=== PATIENT | female | born 1970 | race Caucasian/White ===

== ENCOUNTER 2023-08-13 20:40 | Emergency (ER) | payer BC, SELFPAY ==
--- NOTE | ~2023-08-13 | XR_ITS ---
XR chest 1V portable Ordering provider: Ani Lacy History: 52 years Female with . SOB . Comparison: None. FINDINGS: MEDIASTINUM: The cardiac silhouette is not enlarged. LUNGS: No infiltrates, effusions or pneumothorax. Prominent markings in the lower lobes with possible pneumonia in the left lung base. OTHER: Sliding hiatus hernia. No free air under the diaphragm. Degenerative the spine. IMPRESSION: Highly suggestive left basal pneumonia. Sliding hiatus hernia. Reviewed, dictated and finalized at location A.
[2023-08-13 20:46] VITALS: BP 155/107; PULSE 92; RESP 26; O2SAT 94
--- NOTE | 2023-08-13 20:46 | ECG_ITS ---
Test Date: 2023-08-13 20:51:55 Measurements Intervals [place] Rate: 91 P: 34 OK: 140 QRS: 1 QRSD: 89 T: 26 QT: 365 QTc: 450 Interpretive Statements SINUS RHYTHM WITH SINUS ARRHYTHMIA WITHIN NORMAL LIMITS No previous ECG available for comparison Electronically Signed On 08-14-2023 07:09:20 CDT by Marcial Saunders M.D.
--- NOTE | 2023-08-13 21:02 | ED.GENADULT ---
HPI - General Adult General Chief complaint: Shortness of Breath/Dyspnea Stated complaint: sob Time Seen by Provider: 08/13/23 20:59 History of Present Illness HPI narrative: Patient is a 52-year-old female who presents to the emergency department this evening complaining of an asthma exacerbation. Patient states that shortly prior to arrival to the emergency department approximately 20 minutes prior she started to have some worsening shortness of breath and wheezing. Patient tried to take her home inhalers without any relief. Patient states that with this happens usually she comes to the emergency department for DuoNeb and Decadron which significantly improved her symptoms. She is currently denying any chest pain, any fevers or chills at home and denies any additional symptoms or concerns at this time. Related Data Allergies Allergy/AdvReac Type Severity Reaction Status Date / Time Sulfa (Sulfonamide Allergy Other Verified 08/13/23 21:10 Antibiotics) Review of Systems Review of Systems: All systems are reviewed and are negative unless stated otherwise in the HPI. Exam Narrative: General: Alert, awake, afebrile, in mild respiratory distress. HEENT: PERRL, no rhinorrhea, no post nasal drip, oropharynx clear. Cardiovascular: Regular rate and rhythm, no murmurs, rubs or gallops, no peripheral edema. Respiratory: Diffuse audible wheezing, tachypnea, mild respiratory distress. Abdomen: Soft, nontender, nondistended, no rebound, no guarding, no peritoneal signs. Musculoskeletal: No joint swelling or deformity, normal muscle tone. Skin: No rashes or petechia, no signs of infection. Neurological: Alert and oriented to person, place, and time. Follows all commands. No focal deficits, speech is clear and fluent. Course Vital Signs Vital signs: Vital Signs Pulse Rate 92 08/13/23 20:46 Respiratory Rate 26 H 08/13/23 20:46 Blood Pressure 155/107 H 08/13/23 20:46 Pulse Oximetry 94 08/13/23 20:46 Oxygen Delivery Room Air 08/13/23 20:46 Pulse Rate 86 08/13/23 21:14 Respiratory Rate 22 H 08/13/23 21:14 Blood Pressure 155/107 H 08/13/23 20:46 Pulse Oximetry 94 08/13/23 21:35 Oxygen Delivery Room Air 08/13/23 21:[address] [facility] Narrative Medical decision making narrative: The patient was evaluated by myself in the emergency department. History is obtained from patient who is an independent historian and physical exam was performed. External medical records were reviewed at this time. IV was established and pertinent tests were ordered. Patient was administered continuous hour long DuoNeb breathing treatment and 10 mg of IV Decadron. EKG was obtained which revealed sinus rhythm at a rate of 91 beats per minute with baseline artifact secondary to breathing, no ischemic changes within the limitation of the artifact. EKG was independently interpreted by me and is currently pending official cardiology read. Laboratory results obtained revealing no acute process. Imaging studies obtained included CXR which was independently interpreted by me revealing left basal pneumonia, which is pending final radiology interpretation. Differential diagnosis considerations include infectious process such as pneumonia, asthma exacerbation, acute viral syndrome. Comorbidities impacting this visit include history of asthma. I have evaluated and discussed social determinants of health with the patient that could potentially impact subsequent diagnosis and treatment plans. On repeat assessment of the patient, reevaluation revealed that the patient is doing well and is in no acute distress. Patient symptoms have improved since she arrived to our emergency department. Repeat vital signs were all reviewed and noted to be stable. Differential diagnosis and treatment plan were discussed with the patient at bedside. Patient agrees with discussion and after shared medical decision making agree
[2023-08-13 21:05] LABS: Basophils Absolute Auto 0.1 K/mm3 (0.0-0.1); Basophils Percent Auto 0.6 % (0.2-1.2); Eosinophils Absolute Auto 0.2 K/mm3 (0-0.3); Hemoglobin 13.3 g/dL (12.0-15.0); Immature Granulocyte Absolute 0.02 K/mm3 (0.00-0.031); Immature Granulocyte Percent A 0.2 % (0-0.5); Immature Platelet Fraction Pct 8.4 % (0.9-11.2); Lymphocytes Absolute Auto 3.06 K/mm3 (0.9-3.2); Lymphocytes Percent Auto 35.3 % (18.3-44.2); Mean Corpuscular HGB Conc 32.4 g/dl (32-36); Mean Corpuscular Volume 83.3 fl (80-100); Mean Platelet Volume 11.9 fl (7.4-10.4); Monocytes Absolute Auto 0.6 K/mm3 (0.1-0.6); Monocytes Percent Auto 6.9 % (2.6-8.5); Neutrophils Absolute Auto 4.8 K/mm3 (1.3-6.7); Platelet Count Result 196 k/mm3 (150-375); Red Blood Count 4.92 M/mm3 (4.2-5.4); Red Cell Distribution Width 13.2 % (11.5-14.5); White Blood Count 8.7 K/mm3 (4.5-10.0)
[2023-08-13] MEDS: dexAMETHasone SOD PHOS INJ 10 MG/ML 1 ML VIAL IV PUSH (21:11)
[2023-08-13] MEDS: ALBUTEROL SULFATE NEB 2.5 MG/3 ML INH 10 MG INHALATION (21:11)
[2023-08-13 21:12] LABS: Platelet Estimate Adequate (Adequate); Schistocytes None Seen
[2023-08-13] MEDS: IPRATROPIUM BR 0.02% INH SOLN 0.5 MG/2.5 ML VIAL 2 MG INHALATION (21:13)
[2023-08-13 21:14] VITALS: PULSE 86; RESP 22
[2023-08-13 21:29] LABS: Alanine Aminotransferase 23 U/L (6-35); Albumin Level 4.1 g/dL (3.5-5.1); Alkaline Phosphatase 104 U/L (38-126); Anion Gap 7 mmol/L (4-12); Aspartate Amino Transferase 30 U/L (14-36); Bilirubin,Total 0.3 mg/dL (0.2-1.3); Blood Urea Nitrogen 16 mg/dL (7-17); Calcium 8.9 mg/dL (8.4-10.2); Carbon Dioxide 25 mmol/L (22-30); Chloride 109 mmol/L (98-107); Estimated CRCL calculation 108 ml/min; Estimated Glomerular Filt Rate > 60; Glucose 122 mg/dL (65-110); Potassium 3.6 mmol/L (3.4-5.0); Sodium 141 mmol/L (137-145)
[2023-08-13] MEDS: ACETAMINOPHEN 325 MG TABLET 650 MG PO (21:33)
[2023-08-13 21:35] VITALS: O2SAT 94
[2023-08-13 21:35] LABS: Influenza A QL RT-PCR Negative (Negative); Influenza B QL RT-PCR Negative (Negative); RSV RNA, RT-PCR Negative (Negative); SARS-CoV-2 RNA PCR Negative (Negative)
[2023-08-13 22:52] VITALS: BP 137/65; PULSE 87; RESP 18; O2SAT 100
== END 2023-08-13 22:55 | disposition home or self-care (01) ==
LOC: ANHED 22:04
PROVIDERS: Emergency Provider Emergency Medicine
DX: J45.901 Unspecified asthma with (acute) exacerbation (principal); J18.9 Pneumonia, unspecified organism; Z20.822 Contact with and (suspected) exposure to COVID-19
CPT/HCPCS: 36415; 71045; 80053; 85025; 85055; 87637; 93005; 94640; 96374; 99284; A9270; J1100

== ENCOUNTER 2023-10-03 08:31 | Outpatient (CLI) | payer BC, SELFPAY ==
--- NOTE | ~2023-10-03 | US_ITS ---
EXAMINATION: US pelvic complete w TV DATE: 10/03/2023 09:03 INDICATION: Postmenopausal bleeding. TECHNIQUE: Multiple transabdominal and transvaginal sonographic images of the pelvis were obtained. COMPARISON: None. FINDINGS: TRANSABDOMINAL ULTRASOUND: The uterus measures 8.9 x 3.5 x 6.6 cm. There is no free fluid in the pelvis. TRANSVAGINAL ULTRASOUND: The endometrial complex measures 6 mm in thickness. There is a 2.8 cm subserosal fibroid. The right o vary measures 2.4 x 1.8 x 2.5 cm. The left ovary is not visualized. IMPRESSION: 1. Mildly thickened endometrial complex. The differential diagnosis includes endometrial hyperplasia, polyp, and carcinoma. Biopsy is recommended. 2. Uterine fibroid. Reviewed, dictated and finalized at location A. IMPRESSION: 1. Mildly thickened endometrial complex. The differential diagnosis includes en dometrial hyperplasia, polyp, and carcinoma. Biopsy is recommended. 2. Uterine fibroid.
== END 2023-10-03 08:32 ==
PROVIDERS: PCP Family Medicine; Visit Provider Obstetrics & Gynecology
DX: D25.2 Subserosal leiomyoma of uterus (principal); R93.89 Abnormal findings on diagnostic imaging of other specified body structures
CPT/HCPCS: 76830; 76856

== ENCOUNTER 2023-10-15 01:51 | Day surgery (SDC) | payer BC, SELFPAY ==
[2023-10-09 13:01] VITALS: BMI 40.8
--- NOTE | 2023-10-09 13:18 | SUR.PREOP ---
Report to the Outpatient Waiting Room, entrance under the green pavilion located off [facility], at time 0600 on date 10/15/2023. Planned Procedure Time: 0730. Time changes happen often and if your time is changed the preop area will call you the afternoon before. - You and your visitor will be asked to self-screen and do not enter if you have any COVID symptoms. - A mask is optional within the hospital at this time. Patients may have clear liquids (water, carbonated beverages, clear teas, apple juice) until 3 hours prior to surgery with a maximum of 20 ounces. - No food from midnight until time of surgery - Infants may have breast milk until 4 hours before surgery, infant formula 6 hours prior to surgery. - Children will be allowed to drink immediately following surgery. If applicable, please bring a bottle or sippy cup to assist with drinking. Juice, water, soda, and popsicles are readily available. For infants on formula, please bring formula the day of surgery. Pacifiers are allowed. Take the following medications with a SIP of water the morning of surgery: Nebivolol DO NOT STOP ANY OF YOUR OTHER PRESCRIPTION MEDICATIONS PRIOR TO SURGERY ?EXCEPT THE FOLLOWING Medications to discontinue per physician: Vitamins and supplements- 3 days Date to take last dose: 10/12/23 Please no make-up, nail divehi, hairspray, perfume, deodorant, or body powder the day of surgery. No jewelry (including any body piercings) or valuables the day of surgery, leave them at home. Please take a shower or bath the night before, or the morning of, surgery with an antibacterial soap. Wear comfortable, loose fitting clothing. Children are encouraged to wear pajamas. - Jewelry must be removed prior to entering the operating room. Rings and piercings that are not removed may be cut off. - The hospital will not accept responsibility for valuables. - Please leave all valuables, including medications, at home the day of surgery. If you are going home after surgery, a licensed tow bar driver must drive you home. - NO public transportation without another adult if you receive anesthesia. - We recommend that an adult stay with you for 24 hours following discharge. - We also recommend that you do not drive, make important decision, drink alcoholic beverages, or take any drugs that were not prescribed by your health care provider for at least 24 hours after your discharge time. For Pediatric surgeries, we recommend two adults accompany the child home. Follow any additional instructions given to you from your surgeon. If you or anyone in your household have experienced Covid symptoms in the past week, please notify your surgeon or the nurse liaison at the phone number below for possible testing. Telephone instructions given to ____patient and asked if any additional questions and then verbalized understanding. Patient advised to call surgeon office or pre surgery nurse liaison [phone] if any additional questions.
--- NOTE | 2023-10-14 10:53 | PM.IMHP ---
H&P: HPI History of Present Illness Date/Time: 10/14/23 10:53 52-year-old female presents for evaluation of postmenopausal bleeding. She had not had any bleeding for over 3 years, and blood work is consistent with menopause, and has been bleeding on and off for the last month. Ultrasound showed a slightly thickened endometrial cavity with small fibroid. Presents today for evaluation of endometrial cavity as well as tissue sampling. Chief Complaint: Postmenopausal bleeding Review of Systems Review of Systems: All systems reviewed & are unremarkable except as noted in HPI and below PMFSH Past Medical History Medical History Arthritis Asthma Autoimmune disease Larsen esophagus Bronchitis Hernia Hyperlipidemia Hypothyroidism IBS (irritable bowel syndrome) Migraines MVP (mitral valve prolapse) Surgical History Surgical History History of bunionectomy left foot History of hysteroscopy (~11/2014) hysteroscopy- menometrorrhagia History of orthopedic surgery (~1999) right shoulder labrum and bicep repair Hx of cholecystectomy (10/29/20) Family History Family History Father Acute myocardial infarction COPD (chronic obstructive pulmonary disease) Mother Leukemia Thyroid disease Sibling MVP (mitral valve prolapse) sister Asthma sister Thyroid disease sister Grandparent Breast cancer maternal grandmother Other Thyroid disease maternal aunt Social History Social History Smoking status: Never smoker Second hand tobacco smoke exposure: No Alcohol intake: never Substance use: never Substance use type: does not use Do You Feel Safe in your Home?: Yes Lack of Transportation: No Lack of Food: Never True Current Housing: I Have Housing Concerned About Future Housing: No Difficulty Paying Gas/Electric Bills: No Difficulty Paying for Meds: No Currently Unemployed: No Education: High School Diploma/GED Difficulty w/ Childcare or Family Care: No Living arrangements: with family Additional living arrangements comments: Occupation/Education: occupation 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 Gender identity (if verbalized by the patient): Female Sexual Orientation (if Verbalized by the Patient): Straight or Heterosexual Spiritual care concerns: No Meds Home Medications and Allergies Home Medications Medication Instructions Recorded Confirmed Type Lactobacillus acidophilus 20 100 mmu cells PO DAILY 09/22/23 10/09/23 History billion cell capsule (Florajen Acidophilus) albuterol sulfate 90 mcg/actuation 1 inh inhalation Q4H 09/22/23 10/09/23 History aerosol inhaler levocetirizine 5 mg tablet (Xyzal) 5 mg PO DAILY 09/22/23 10/09/23 History montelukast 10 mg tablet 10 mg PO DAILY 09/22/23 10/09/23 History (Singulair) nebivolol 5 mg tablet (Bystolic) 5 mg PO DAILY 09/22/23 10/09/23 History pantoprazole 40 mg tablet,delayed 40 mg PO QAM 09/22/23 10/09/23 History release pseudoephedrine HCl 120 mg 120 mg PO Q12H 09/22/23 10/09/23 History tablet,extended release (Sudafed 12 Hour) rizatriptan 10 mg tablet (Maxalt) See Rx Instructions PO .COMPLEX 09/22/23 10/09/23 History rosuvastatin 10 mg tablet 10 mg PO DAILY 09/22/23 10/09/23 History simethicone 125 mg capsule (Gas-X 125 mg PO BID PRN gas 09/22/23 10/09/23 History Extra Strength) Allergies Allergy/AdvReac Type Severity Reaction Status Date / Time Sulfa (Sulfonamide Allergy Unknown Other Verified 10/09/23 12:57 Antibiotics) adhesive tape AdvReac Mild Blister Verified 10/09/23 12:57 Exam Const: General: cooperative and healthy appearing Resp: Effort & Inspection: normal respiratory effort A
[2023-10-15] VITALS (7 sets, daily range): BP systolic 109–121; BP diastolic 67–81; PULSE 56–75; RESP 16–20; TEMP 36.1; O2SAT 94–98; BMI 41.4
[2023-10-15] MEDS: LACTATED RINGERS 1,000 ML 30 ML IV CONT (07:00)
[2023-10-15] MEDS: ACETAMINOPHEN 500 MG TABLET 1000 MG PO (07:11)
--- NOTE | 2023-10-15 09:31 | WPDANESEPPF ---
Anes - Initial Pre Proc Eval Procedure: Operation Date: 10/15/23 08:30 Proposed Procedures p Hysteroscopy Dilation and Curettage - Pedro Pablo Prasad MD Date/Time: 10/15/23 09:31 Surgeon: Pedro Pablo Prasad MD Pre Op Diagnosis: abnormal uterine bleeding Patient Data Age: 52 Gender: F Height: 1.7 m Weight: 118.2 kg Allergies Allergy/AdvReac Type Severity Reaction Status Date / Time Sulfa (Sulfonamide Allergy Unknown Other Verified 10/15/23 09:23 Antibiotics) adhesive tape AdvReac Mild Blister Verified 10/15/23 09:23 Home Medications Medication Instructions Recorded Confirmed Type Lactobacillus acidophilus 20 100 mmu cells PO DAILY 09/22/23 10/09/23 History billion cell capsule (Florajen Acidophilus) albuterol sulfate 90 mcg/actuation 1 inh inhalation Q4H 09/22/23 10/09/23 History aerosol inhaler levocetirizine 5 mg tablet (Xyzal) 5 mg PO DAILY 09/22/23 10/09/23 History montelukast 10 mg tablet 10 mg PO DAILY 09/22/23 10/09/23 History (Singulair) nebivolol 5 mg tablet (Bystolic) 5 mg PO DAILY 09/22/23 10/09/23 History pantoprazole 40 mg tablet,delayed 40 mg PO QAM 09/22/23 10/09/23 History release pseudoephedrine HCl 120 mg 120 mg PO Q12H 09/22/23 10/09/23 History tablet,extended release (Sudafed 12 Hour) rizatriptan 10 mg tablet (Maxalt) See Rx Instructions PO .COMPLEX 09/22/23 10/09/23 History rosuvastatin 10 mg tablet 10 mg PO DAILY 09/22/23 10/09/23 History simethicone 125 mg capsule (Gas-X 125 mg PO BID PRN gas 09/22/23 10/09/23 History Extra Strength) Patient hx anesthesia problems: none Family hx anesthesia problems: none Results Review: All pre-operative results and documents have been reviewed as part of the pre-operative evaluation. [facility] Past Medical History Medical History Arthritis Asthma Autoimmune disease Larsen esophagus Bronchitis Hernia Hyperlipidemia Hypothyroidism IBS (irritable bowel syndrome) Migraines MVP (mitral valve prolapse) Surgical History Surgical History History of bunionectomy left foot History of hysteroscopy (~11/2014) hysteroscopy- menometrorrhagia History of orthopedic surgery (~1999) right shoulder labrum and bicep repair Hx of cholecystectomy (10/29/20) Family History Family History Father Acute myocardial infarction COPD (chronic obstructive pulmonary disease) Mother Leukemia Thyroid disease Sibling MVP (mitral valve prolapse) sister Asthma sister Thyroid disease sister Grandparent Breast cancer maternal grandmother Other Thyroid disease maternal aunt Social History Social History Smoking status: Never smoker Second hand tobacco smoke exposure: No Alcohol intake: never Substance use: never Substance use type: does not use Do You Feel Safe in your Home?: Yes Lack of Transportation: No Lack of Food: Never True Current Housing: I Have Housing Concerned About Future Housing: No Difficulty Paying Gas/Electric Bills: No Difficulty Paying for Meds: No Currently Unemployed: No Education: High School Diploma/GED Difficulty w/ Childcare or Family Care: No Living arrangements: with family Additional living arrangements comments: Occupation/Education: occupation 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
--- NOTE | 2023-10-15 09:50 | WPDHPUPDATE1 ---
History and Physical Update Update Date/Time: 10/15/23 09:50 History and Physical has been reviewed, including an updated exam of the patient. There are NO changes in the patient's condition. Risks, benefits, and alternatives have been discussed and questions answered. Patient agrees to proceed with procedure.
[2023-10-15] MEDS: oxyCODONE HCL (*CRX) 5 MG TAB IR PO (11:05)
[2023-10-15] MEDS: ONDANSETRON INJ 4 MG/2 ML VIAL IV PUSH (11:06)
--- NOTE | 2023-10-15 11:06 | W.PM.PROC2 ---
Procedure Note - Detailed Date of Procedure 10/15/23 Pre-op Diagnosis abnormal uterine bleeding Post-op Diagnosis Same Procedure Performed hysteroscope with uterine curettings Surgeon Pedro Pablo Prasad MD Anesthesia MAC Findings atrophic cavity/slightly increased vascularity/adhesions Description of Procedure Patient prepped and draped in usual manner for this procedure. Hysteroscope was placed without difficulty into the endometrial cavity. Cavity was atrophic no polyps, there were some adhesions noted. Slightly increased vascularity in the anterior uterine wall. Curettings were obtained throughout without difficulty. Scope again placed and no abnormalities noted. At this point the procedure was considered terminated and the patient tolerated the procedure well. Estimated Blood Loss 10 Drains No Packing No Pathology Yes Complications No immediate complications Condition Stable Disposition PACU [facility] Billing Surgery - Charge Forward: Surgery Billing
== END 2023-10-15 12:45 | disposition home or self-care (01) ==
PROVIDERS: PCP Family Medicine; Visit Provider Obstetrics & Gynecology
PROC: 0U5B8ZZ Destruction of Endometrium, Via Natural or Artificial Opening Endoscopic (ICD-10-PCS; CPT 58563; principal; 2023-10-15 08:30)
DX: R93.89 Abnormal findings on diagnostic imaging of other specified body structures (principal); N73.6 Female pelvic peritoneal adhesions (postinfective); N95.0 Postmenopausal bleeding; I10 Essential (primary) hypertension; E78.5 Hyperlipidemia, unspecified; J45.909 Unspecified asthma, uncomplicated; E03.9 Hypothyroidism, unspecified; K22.70 Barrett's esophagus without dysplasia; K58.9 Irritable bowel syndrome, unspecified; M35.9 Systemic involvement of connective tissue, unspecified; E66.01 Morbid (severe) obesity due to excess calories; Z68.41 Body mass index [BMI] 40.0-44.9, adult; Z79.51 Long term (current) use of inhaled steroids; Z98.890 Other specified postprocedural states; Z90.49 Acquired absence of other specified parts of digestive tract; Z86.79 Personal history of other diseases of the circulatory system; Z80.3 Family history of malignant neoplasm of breast; Z82.49 Family history of ischemic heart disease and other diseases of the circulatory system
CPT/HCPCS: 58558; 88305; A9270; J2405; J2704; J3010; J7120

== ENCOUNTER 2024-04-11 16:10 | Emergency (ER) | payer BC, SELFPAY ==
--- NOTE | ~2024-04-11 | XR_ITS ---
Clinical Indication: Shortness of breath PA and lateral views of the chest: Comparison: 08/13/2023 Findings: The lungs are clear, without evidence of focal consolidation or pleural effusion. Cardiome diastinal silhouette is within normal limits. Osseous structures intact. Stable large left sided hiat al hernia. Impression: Clear lungs. Stable large left-sided hiatal hernia. Reviewed, dictated and finalized at location . POUND ATTENDANT Impression: Clear lungs. Stable large left-sided hiatal hernia.
--- OUTSIDE RECORDS SUMMARY | 2024-04-11 16:14 | XMS_ITS | Encounter Summary ---
Author Organization [facility] Facility Care Team Providers Care Nail Professional Name Role Phone Son Jeronimo MD Primary Care Provider [phone] Ben Amaral Primary Care Provider [phone] Katherine Page DO Primary Care Provider [phone] Dung Hudson MD Unavailable Thuan Og MD Unavailable [phone] Hernan Ibarra MD Primary Care Provider [phone] Encounter Details Date Type Department Care Team (Latest Contact Info) Description 05/23/2016 Orders Only [facility] CLINCONV ProviderSandra MD [address] [place] [id number] Social History Tobacco Use Types Packs/Day Years Used Date Smoking Tobacco: Never Assessed Comments Unknown Sex and Gender Information Value Date Recorded Sex Assigned at Not on file Legal Sex Female 11:58 PM EXTERMINATOR HELPER Gender Identity Female 07/27/2018 12:12 PM CDT Sexual Orientation Not on file documented as of this encounter Plan of Treatment Upcoming Encounters Date Type Department Care Team (Late st Contact Info) Description 04/12/2024 12:00 PM EXTERMINATOR HELPER Hospital Encounter [address] [place] [address] Vivek Mcintosh MD [address] [facility] [address] [place] [address] 04/12/2024 12:00 PM EXTERMINATOR HELPER - 04/12/2024 12:30 PM EXTERMINATOR HELPER Surgery [address] [address] Vivek Mcintosh MD [address] [facility] [address] [place] [address] COLONOSCOPY Scheduled Procedures Name Priority Associated Diagnoses Date/Ti me COLONOSCOPY LUQ pain Encounter for screening colonoscopy Gastroesophageal reflux disease, unspecified whether esophagitis present History of Larsen's esophagus Dyspepsia History of Helicobacter pylori infection 04/12/2024 12:00 PM EXTERMINATOR HELPER ESOPHAGOGASTRODUODENOSCOPY LUQ pain Encounter for screening colonoscopy Gastroesophageal reflux disease, unspecified whether esophagitis present History of Larsen's esophagus Dyspepsia History of Helicobacter pylori infection 04/12/2024 12:00 PM EXTERMINATOR HELPER documented as of this encounter Procedures Procedure Name Priority Date/Time Associated Diagnosis Comments SCAN - LABS 05/27/2016 12:00 AM CDT SCAN - LABS 05/26/2016 12:00 AM CDT documented in this encounter Results * SCAN - LABS (05/27/2016 12:00 AM CDT) Narrative 05/27/2016 12:00 AM CDT Ordered by an unspecified provider. Historical Provider Final Res ult * SCAN - LABS (05/26/2016 12:00 AM CDT) Narrative 05/26/2016 12:00 AM CDT Ordered by an unspecified provider. Historical Provider Final Res ult documented in this encounter Visit Diagnoses Not on filedocumented in this encounter Care Teams Nail Professional Relationship Specialty Start Date End Date Son Jeronimo MD PCP - General Family Medicine 07/27/18 11/26/21 Ben Amaral PA PCP - General Family Medicine 11/27/21 10/15/22 Katherine Page DO [address] [facility] [address] [place] [id number] PCP - General Family Medicine 10/16/22 06/29/23 Hernan Ibarra MD [address] [place] [address] PCP - General Family Medicine 06/30/23 Dung Hudson MD [address] [address] Pulmonary Disease 10/16/22 Thuan Og MD [address] [place] [address] Referring Physician Obstetrics and Gynecology 10/16/22 documented as of this encounter
--- OUTSIDE RECORDS SUMMARY | 2024-04-11 16:14 | XMS_ITS | Encounter Summary ---
Author Organization [facility] Facility Care Team Providers Care Technology Solutions Architect Name Role Phone Son Jeronimo MD Primary Care Provider [phone] Ben Amaral Primary Care Provider [phone] Katherine Page DO Primary Care Provider [phone] Dung Hudson MD Unavailable Thuan Og MD Unavailable [phone] Hernan Ibarra MD Primary Care Provider Encounter Details Date Type Department Care Team (Latest Contact Info) Description 09/29/2017 Orders Only [facility] CLINCONV ProviderSandra MD [address] [place] [address] Social History Tobacco Use Types Packs/Day Years Used Date Smoking Tobacco: Never Assessed Comments Unknown Sex and Gender Information Value Date Recorded Sex Assigned at Not on file Legal Sex Female 11:58 PM PROFESSOR OF SURGERY Gender Identity Female 07/27/2018 12:12 PM CDT Sexual Orientation Not on file documented as of this encounter Plan of Treatment Upcoming Encounters Date Type Department Care Team (Late st Contact Info) Description 04/12/2024 12:00 PM PROFESSOR OF SURGERY Hospital Encounter [address] [place] [address] Vivek Mcintosh MD [address] [facility] [address] [place] [address] 04/12/2024 12:00 PM PROFESSOR OF SURGERY - 04/12/2024 12:30 PM PROFESSOR OF SURGERY Surgery [facility] [address] [place] [address] Vivek Mcintosh MD [address] [facility] [address] [place] [address] COLONOSCOPY Scheduled Procedures Name Priority Associated Diagnoses Date/Ti me COLONOSCOPY LUQ pain Encounter for screening colonoscopy Gastroesophageal reflux disease, unspecified whether esophagitis present History of Larsen's esophagus Dyspepsia History of Helicobacter pylori infection 04/12/2024 12:00 PM PROFESSOR OF SURGERY ESOPHAGOGASTRODUODENOSCOPY LUQ pain Encounter for screening colonoscopy Gastroesophageal reflux disease, unspecified whether esophagitis present History of Larsen's esophagus Dyspepsia History of Helicobacter pylori infection 04/12/2024 12:00 PM PROFESSOR OF SURGERY documented as of this encounter Procedures Procedure Name Priority Date/Time Associated Diagnosis Comments SCAN - LABS 10/02/2017 12:00 AM CDT documented in this encounter Results * SCAN - LABS (10/02/2017 12:00 AM CDT) Narrative 10/02/2017 12:00 AM CDT Ordered by an unspecified provider. Historical Provider Final Res ult documented in this encounter Visit Diagnoses Not on filedocumented in this encounter Care Teams Technology Solutions Architect Relationship Specialty Start Date End Date Son Jeronimo MD PCP - General Family Medicine 07/27/18 11/26/21 Ben Amaral PA PCP - General Family Medicine 11/27/21 10/15/22 Katherine Page DO [address] [facility] [address] [address] PCP - General Family Medicine 10/16/22 06/29/23 Hernan Ibarra MD [address] [place] [address] PCP - General Family Medicine 06/30/23 Dung Hudson MD [address] [address] Pulmonary Disease 10/16/22 Thuan Og MD [address] [place] [address] Referring Physician Obstetrics and Gynecology 10/16/22 documented as of this encounter
--- OUTSIDE RECORDS SUMMARY | 2024-04-11 16:14 | XMS_ITS | Encounter Summary ---
Author Organization [facility] Facility Care Team Providers Care Valve Steamer Name Role Phone Son Jeronimo MD Primary Care Provider [phone] Ben Amaral Primary Care Provider [phone] Katherine Page DO Primary Care Provider [phone] Dung Hudson MD Unavailable Thuan Og MD Unavailable [phone] Hernan Ibarra MD Primary Care Provider Encounter Details Date Type Department Care Team (Latest Contact Info) Description 05/29/2016 Orders Only [facility] CLINCONV ProviderSandra MD [address] [place] [address] Social History Tobacco Use Types Packs/Day Years Used Date Smoking Tobacco: Never Assessed Comments Unknown Sex and Gender Information Value Date Recorded Sex Assigned at Not on file Legal Sex Female 11:58 PM COMMERCIAL FISHING VESSEL OPERATOR Gender Identity Female 07/27/2018 12:12 PM CDT Sexual Orientation Not on file documented as of this encounter Plan of Treatment Upcoming Encounters Date Type Department Care Team (Late st Contact Info) Description 04/12/2024 12:00 PM COMMERCIAL FISHING VESSEL OPERATOR Hospital Encounter [address] [place] [address] Vivek Mcintosh MD 4 [facility] [address] [place] [address] 04/12/2024 12:00 PM COMMERCIAL FISHING VESSEL OPERATOR - 04/12/2024 12:30 PM COMMERCIAL FISHING VESSEL OPERATOR Surgery [facility] [address] [place] [address] Vivek Mcintosh MD 4 [facility] [address] [place] [address] COLONOSCOPY Scheduled Procedures Name Priority Associated Diagnoses Date/Ti me COLONOSCOPY LUQ pain Encounter for screening colonoscopy Gastroesophageal reflux disease, unspecified whether esophagitis present History of Larsen's esophagus Dyspepsia History of Helicobacter pylori infection 04/12/2024 12:00 PM COMMERCIAL FISHING VESSEL OPERATOR ESOPHAGOGASTRODUODENOSCOPY LUQ pain Encounter for screening colonoscopy Gastroesophageal reflux disease, unspecified whether esophagitis present History of Larsen's esophagus Dyspepsia History of Helicobacter pylori infection 04/12/2024 12:00 PM COMMERCIAL FISHING VESSEL OPERATOR documented as of this encounter Procedures Procedure Name Priority Date/Time Associated Diagnosis Comments SCAN - LABS 05/30/2016 12:00 AM CDT documented in this encounter Results * SCAN - LABS (05/30/2016 12:00 AM CDT) Narrative 05/30/2016 12:00 AM CDT Ordered by an unspecified provider. Historical Provider Final Res ult documented in this encounter Visit Diagnoses Not on filedocumented in this encounter Care Teams Valve Steamer Relationship Specialty Start Date End Date Son Jeronimo MD PCP - General Family Medicine 07/27/18 11/26/21 Ben Amaral PA PCP - General Family Medicine 11/27/21 10/15/22 Katherine Page DO [address] [facility] [address] [address] PCP - General Family Medicine 10/16/22 06/29/23 Hernan Ibarra MD [address] [place] [address] PCP - General Family Medicine 06/30/23 Dung Hudson MD [address] [address] Pulmonary Disease 10/16/22 Thuan Og MD [address] [place] [address] Referring Physician Obstetrics and Gynecology 10/16/22 documented as of this encounter
--- OUTSIDE RECORDS SUMMARY | 2024-04-11 16:14 | XMS_ITS | Encounter Summary ---
Author Organization [facility] Facility Care Team Providers Care Endodontics Dentist Name Role Phone Son Jeronimo MD Primary Care Provider [phone] Ben Amaral Primary Care Provider [phone] Katherine Page DO Primary Care Provider [phone] Dung Hudson MD Unavailable Thuan Og MD Unavailable [phone] Hernan Ibarra MD Primary Care Provider Encounter Details Date Type Department Care Team (Latest Contact Info) Description 07/03/2015 Orders Only [facility] CLINCONV ProviderSandra MD [address] [place] [address] Social History Tobacco Use Types Packs/Day Years Used Date Smoking Tobacco: Never Assessed Comments Unknown Sex and Gender Information Value Date Recorded Sex Assigned at Not on file Legal Sex Female 11:58 PM MANAGEMENT DEVELOPMENT SPECIALIST Gender Identity Female 07/27/2018 12:12 PM CDT Sexual Orientation Not on file documented as of this encounter Plan of Treatment Upcoming Encounters Date Type Department Care Team (Late st Contact Info) Description 04/12/2024 12:00 PM MANAGEMENT DEVELOPMENT SPECIALIST Hospital Encounter [address] [place] [address] Vivek Mcintosh MD [address] [facility] [address] [place] [address] 04/12/2024 12:00 PM MANAGEMENT DEVELOPMENT SPECIALIST - 04/12/2024 12:30 PM MANAGEMENT DEVELOPMENT SPECIALIST Surgery [facility] 1 [place] [address] Vivek Mcintosh MD [address] [facility] [address] [place] [address] COLONOSCOPY Scheduled Procedures Name Priority Associated Diagnoses Date/Ti me COLONOSCOPY LUQ pain Encounter for screening colonoscopy Gastroesophageal reflux disease, unspecified whether esophagitis present History of Larsen's esophagus Dyspepsia History of Helicobacter pylori infection 04/12/2024 12:00 PM MANAGEMENT DEVELOPMENT SPECIALIST ESOPHAGOGASTRODUODENOSCOPY LUQ pain Encounter for screening colonoscopy Gastroesophageal reflux disease, unspecified whether esophagitis present History of Larsen's esophagus Dyspepsia History of Helicobacter pylori infection 04/12/2024 12:00 PM MANAGEMENT DEVELOPMENT SPECIALIST documented as of this encounter Procedures Procedure Name Priority Date/Time Associated Diagnosis Comments SCAN - LABS 07/03/2015 12:00 AM CDT documented in this encounter Results * SCAN - LABS (07/03/2015 12:00 AM CDT) Narrative 07/03/2015 12:00 AM CDT Ordered by an unspecified provider. Historical Provider Final Res ult documented in this encounter Visit Diagnoses Not on filedocumented in this encounter Care Teams Endodontics Dentist Relationship Specialty Start Date End Date Son Jeronimo MD PCP - General Family Medicine 07/27/18 11/26/21 Ben Amaral PA PCP - General Family Medicine 11/27/21 10/15/22 Katherine Page DO [address] [facility] [address] [address] PCP - General Family Medicine 10/16/22 06/29/23 Hernan Ibarra MD [address] [place] [address] PCP - General Family Medicine 06/30/23 Dung Hudson MD [address] [address] Pulmonary Disease 10/16/22 Thuan Og MD [address] [place] [address] Referring Physician Obstetrics and Gynecology 10/16/22 documented as of this encounter
--- OUTSIDE RECORDS SUMMARY | 2024-04-11 16:14 | XMS_ITS | Encounter Summary ---
Author Organization [facility] Facility Care Team Providers Care Sr. Operations Manager Name Role Phone Son Jeronimo MD Primary Care Provider [phone] Ben Amaral Primary Care Provider [phone] Katherine Page DO Primary Care Provider [phone] Dung Hudson MD Unavailable Thuan Og MD Unavailable [phone] Hernan Ibarra MD Primary Care Provider Encounter Details Date Type Department Care Team (Latest Contact Info) Description 11/17/2016 Orders Only [facility] CLINCONV ProviderSandra MD [address] [place] [address] Social History Tobacco Use Types Packs/Day Years Used Date Smoking Tobacco: Never Assessed Comments Unknown Sex and Gender Information Value Date Recorded Sex Assigned at Not on file Legal Sex Female 11:58 PM NOODLE PRESS OPERATOR Gender Identity Female 07/27/2018 12:12 PM CDT Sexual Orientation Not on file documented as of this encounter Plan of Treatment Upcoming Encounters Date Type Department Care Team (Late st Contact Info) Description 04/12/2024 12:00 PM NOODLE PRESS OPERATOR Hospital Encounter [address] [place] [address] Vivek Mcintosh MD 4 [facility] [address] [place] [address] 04/12/2024 12:00 PM NOODLE PRESS OPERATOR - 04/12/2024 12:30 PM NOODLE PRESS OPERATOR Surgery [address] [address] Vivek Mcintosh MD 4 [facility] [address] [place] [address] COLONOSCOPY Scheduled Procedures Name Priority Associated Diagnoses Date/Ti me COLONOSCOPY LUQ pain Encounter for screening colonoscopy Gastroesophageal reflux disease, unspecified whether esophagitis present History of Larsen's esophagus Dyspepsia History of Helicobacter pylori infection 04/12/2024 12:00 PM NOODLE PRESS OPERATOR ESOPHAGOGASTRODUODENOSCOPY LUQ pain Encounter for screening colonoscopy Gastroesophageal reflux disease, unspecified whether esophagitis present History of Larsen's esophagus Dyspepsia History of Helicobacter pylori infection 04/12/2024 12:00 PM NOODLE PRESS OPERATOR documented as of this encounter Procedures Procedure Name Priority Date/Time Associated Diagnosis Comments CARDIOLOGY REPORT 12/16/2016 12: 00 AM CDT documented in this encounter Results * CARDIOLOGY REPORT (12/16/2016 12:00 AM CDT) Anatomical Region Laterality Modality Other Narrative 12/16/2016 12:00 AM CDT Ordered by an unspecified provider. Historical Provider [facility] Final Result documented in this encounter Visit Diagnoses Not on filedocumented in this encounter Care Teams Sr. Operations Manager Relationship Specialty Start Date End Date Son Jeronimo MD PCP - General Family Medicine 07/27/18 11/26/21 Ben Amaral PA PCP - General Family Medicine 11/27/21 10/15/22 Katherine Page DO [address] [facility] [address] [place] [address] PCP - General Family Medicine 10/16/22 06/29/23 Hernan Ibarra MD [address] [place] [address] PCP - General Family Medicine 06/30/23 Dung Hudson MD [address] [address] Pulmonary Disease 10/16/22 Thuan Og MD [address] [place] [address] Referring Physician Obstetrics and Gynecology 10/16/22 documented as of this encounter
--- OUTSIDE RECORDS SUMMARY | 2024-04-11 16:14 | XMS_ITS | Clinical Summary ---
Author Organization [facility] Address [address] [place] [address] Care Team Providers Care Artificial Intelligence Specialist Name Role Phone Unavailable Primary Care Provider Unavailabl e Social History Tobacco Use Types Packs/Day Years Used Date Smoking Tobacco: Never Assessed Comments Unknown Sex and Gender Information Value Date Recorded Sex Assigned at Not on file Legal Sex Female 12:31 PM CDT Gender Identity Not on file Sexual Orientation Not on file Plan of Treatment Health Maintenance Due Date Last Done Comments Hepatitis C Virus (HCV) Screening 1972 TdaP Immunization 1972 Hepatitis B Immunization (1 of 3 - 19+ 3-dose series) 11/26/1991 Pap Smear 1993 Cervical Cancer Screening (CCS) 2002 HPV/Cotest 2002 Colonoscopy 2017 Colorectal Cancer Screening 2017 Cologuard 2022 Immunochemical Fecal Occult Blood 2022 Mammogram 2022 Pneumococcal Immunization (5 0+ years) (1 of 1 - PCV) 2022 Zoster Immunization (1 of 2) 2022 Influenza Immunization (#1) 2023 11/30/2012 SARS-COV-2 Immunization (3 - 2023- season) 2023 03/09/2020, 02/17/2020 Respiratory Syncytial Virus (RSV) Immunization (Adult) (1 - 1-dose 75+ series) 11/26/2047 Meningococcal Immunization (ACWY) Aged Out No longer eligible b ased on patient's age to complete this topic Pneumococcal Immunization Combined Aged Out No longer eligible b ased on patient's age to complete this topic Rotavirus Immunization Aged Out No lo nger eligible based on patient's age to complete this topic
--- OUTSIDE RECORDS SUMMARY | 2024-04-11 16:14 | XMS_ITS | Encounter Summary ---
Author Organization [facility] Facility Care Team Providers Care Ballet Dancer Name Role Phone Son Jeronimo MD Primary Care Provider [phone] Ben Amaral Primary Care Provider [phone] Katherine Page DO Primary Care Provider [phone] Dung Hudson MD Unavailable Thuan Og MD Unavailable [phone] Hernan Ibarra MD Primary Care Provider Encounter Details Date Type Department Care Team (Latest Contact Info) Description 07/09/2016 Orders Only [facility] CLINCONV ProviderSandra MD [address] [place] [address] Social History Tobacco Use Types Packs/Day Years Used Date Smoking Tobacco: Never Assessed Comments Unknown Sex and Gender Information Value Date Recorded Sex Assigned at Not on file Legal Sex Female 11:58 PM INSEMINATION WORKER Gender Identity Female 07/27/2018 12:12 PM CDT Sexual Orientation Not on file documented as of this encounter Plan of Treatment Upcoming Encounters Date Type Department Care Team (Late st Contact Info) Description 04/12/2024 12:00 PM INSEMINATION WORKER Hospital Encounter [address] [place] [address] Vivek Mcintosh MD [address] [facility] [address] [place] [address] 04/12/2024 12:00 PM INSEMINATION WORKER - 04/12/2024 12:30 PM INSEMINATION WORKER Surgery [facility] 1 [place] [address] Vivek Mcintosh MD [address] [facility] [address] [place] [address] COLONOSCOPY Scheduled Procedures Name Priority Associated Diagnoses Date/Ti me COLONOSCOPY LUQ pain Encounter for screening colonoscopy Gastroesophageal reflux disease, unspecified whether esophagitis present History of Larsen's esophagus Dyspepsia History of Helicobacter pylori infection 04/12/2024 12:00 PM INSEMINATION WORKER ESOPHAGOGASTRODUODENOSCOPY LUQ pain Encounter for screening colonoscopy Gastroesophageal reflux disease, unspecified whether esophagitis present History of Larsen's esophagus Dyspepsia History of Helicobacter pylori infection 04/12/2024 12:00 PM INSEMINATION WORKER documented as of this encounter Procedures Procedure Name Priority Date/Time Associated Diagnosis Comments SCAN - LABS 07/09/2016 12:00 AM CDT documented in this encounter Results * SCAN - LABS (07/09/2016 12:00 AM CDT) Narrative 07/09/2016 12:00 AM CDT Ordered by an unspecified provider. Historical Provider Final Res ult documented in this encounter Visit Diagnoses Not on filedocumented in this encounter Care Teams Ballet Dancer Relationship Specialty Start Date End Date Son Jeronimo MD PCP - General Family Medicine 07/27/18 11/26/21 Ben Amaral PA PCP - General Family Medicine 11/27/21 10/15/22 Katherine Page DO [address] [facility] [address] [address] PCP - General Family Medicine 10/16/22 06/29/23 Hernan Ibarra MD [address] [place] [address] PCP - General Family Medicine 06/30/23 Dung Hudson MD [address] [address] Pulmonary Disease 10/16/22 Thuan Og MD [address] [place] [address] Referring Physician Obstetrics and Gynecology 10/16/22 documented as of this encounter
--- OUTSIDE RECORDS SUMMARY | 2024-04-11 16:14 | XMS_ITS | Encounter Summary ---
Author Organization [facility] Facility Care Team Providers Care Deicer Repairer Name Role Phone Son Jeronimo MD Primary Care Provider [phone] Ben Amaral Primary Care Provider [phone] Katherine Page DO Primary Care Provider [phone] Dung Hudson MD Unavailable Thuan Og MD Unavailable [phone] Hernan Ibarra MD Primary Care Provider Encounter Details Date Type Department Care Team (Latest Contact Info) Description 08/28/2017 Orders Only [facility] CLINCONV ProviderSandra MD [address] [place] [address] Social History Tobacco Use Types Packs/Day Years Used Date Smoking Tobacco: Never Assessed Comments Unknown Sex and Gender Information Value Date Recorded Sex Assigned at Not on file Legal Sex Female 11:58 PM WELDING SYSTEMS AND EQUIPMENT REPAIRER Gender Identity Female 07/27/2018 12:12 PM CDT Sexual Orientation Not on file documented as of this encounter Plan of Treatment Upcoming Encounters Date Type Department Care Team (Late st Contact Info) Description 04/12/2024 12:00 PM WELDING SYSTEMS AND EQUIPMENT REPAIRER Hospital Encounter [address] [place] [address] Vivek Mcintosh MD [address] [facility] [address] [place] [address] 04/12/2024 12:00 PM WELDING SYSTEMS AND EQUIPMENT REPAIRER - 04/12/2024 12:30 PM WELDING SYSTEMS AND EQUIPMENT REPAIRER Surgery [facility] 1 [place] [address] Vivek Mcintosh MD [address] [facility] [address] [place] [address] COLONOSCOPY Scheduled Procedures Name Priority Associated Diagnoses Date/Ti me COLONOSCOPY LUQ pain Encounter for screening colonoscopy Gastroesophageal reflux disease, unspecified whether esophagitis present History of Larsen's esophagus Dyspepsia History of Helicobacter pylori infection 04/12/2024 12:00 PM WELDING SYSTEMS AND EQUIPMENT REPAIRER ESOPHAGOGASTRODUODENOSCOPY LUQ pain Encounter for screening colonoscopy Gastroesophageal reflux disease, unspecified whether esophagitis present History of Larsen's esophagus Dyspepsia History of Helicobacter pylori infection 04/12/2024 12:00 PM WELDING SYSTEMS AND EQUIPMENT REPAIRER documented as of this encounter Procedures Procedure Name Priority Date/Time Associated Diagnosis Comments SCAN - LABS 08/28/2017 12:00 AM CDT SCAN - LABS 08/28/2017 12:00 AM CDT SCAN - LABS 08/28/2017 12:00 AM CDT documented in this encounter Results * SCAN - LABS (08/28/2017 12:00 AM CDT) Narrative 08/28/2017 12:00 AM CDT Ordered by an unspecified provider. us Historical Provider Final Res ult * SCAN - LABS (08/28/2017 12:00 AM CDT) Narrative 08/28/2017 12:00 AM CDT Ordered by an unspecified provider. us Historical Provider Final Res ult * SCAN - LABS (08/28/2017 12:00 AM CDT) Narrative 08/28/2017 12:00 AM CDT Ordered by an unspecified provider. us Historical Provider Final Res ult documented in this encounter Visit Diagnoses Not on filedocumented in this encounter Care Teams Deicer Repairer Relationship Specialty Start Date End Date Son Jeronimo MD PCP - General Family Medicine 07/27/18 11/26/21 Ben Amaral PA PCP - General Family Medicine 11/27/21 10/15/22 Katherine Page DO [address] [facility] [address] [address] PCP - General Family Medicine 10/16/22 06/29/23 Hernan Ibarra MD [address] [place] [address] PCP - General Family Medicine 06/30/23 [place] [address] [place] [address] Pulmonary Disease 10/16/22 Thuan Og MD [address] [place] [address] Referring Physician Obstetrics and Gynecology 10/16/22 documented as of this encounter
--- OUTSIDE RECORDS SUMMARY | 2024-04-11 16:14 | XMS_ITS | Encounter Summary ---
Author Organization [facility] Facility Care Team Providers Care Management Associate Name Role Phone Son Jeronimo MD Primary Care Provider [phone] Ben Amaral Primary Care Provider [phone] Katherine Page DO Primary Care Provider [phone] Dung Hudson MD Unavailable Thuan Og MD Unavailable [phone] Hernan Ibarra MD Primary Care Provider Encounter Details Date Type Department Care Team (Latest Contact Info) Description 08/27/2016 Orders Only [facility] CLINCONV ProviderSandra MD [address] [place] [address] Social History Tobacco Use Types Packs/Day Years Used Date Smoking Tobacco: Never Assessed Comments Unknown Sex and Gender Information Value Date Recorded Sex Assigned at Not on file Legal Sex Female 11:58 PM ART FRAMING MANAGER Gender Identity Female 07/27/2018 12:12 PM CDT Sexual Orientation Not on file documented as of this encounter Plan of Treatment Upcoming Encounters Date Type Department Care Team (Late st Contact Info) Description 04/12/2024 12:00 PM ART FRAMING MANAGER Hospital Encounter [address] [place] [address] Vivek Mcintosh MD [address] [facility] [address] [place] [address] 04/12/2024 12:00 PM ART FRAMING MANAGER - 04/12/2024 12:30 PM ART FRAMING MANAGER Surgery [address] [address] Vivek Mcintosh MD [address] [facility] [address] [place] [address] COLONOSCOPY Scheduled Procedures Name Priority Associated Diagnoses Date/Ti me COLONOSCOPY LUQ pain Encounter for screening colonoscopy Gastroesophageal reflux disease, unspecified whether esophagitis present History of Larsen's esophagus Dyspepsia History of Helicobacter pylori infection 04/12/2024 12:00 PM ART FRAMING MANAGER ESOPHAGOGASTRODUODENOSCOPY LUQ pain Encounter for screening colonoscopy Gastroesophageal reflux disease, unspecified whether esophagitis present History of Larsen's esophagus Dyspepsia History of Helicobacter pylori infection 04/12/2024 12:00 PM ART FRAMING MANAGER documented as of this encounter Procedures Procedure Name Priority Date/Time Associated Diagnosis Comments SCAN - LABS 08/27/2016 12:00 AM CDT SCAN - LABS 08/27/2016 12:00 AM CDT documented in this encounter Results * SCAN - LABS (08/27/2016 12:00 AM CDT) Narrative 08/27/2016 12:00 AM CDT Ordered by an unspecified provider. Historical Provider Final Res ult * SCAN - LABS (08/27/2016 12:00 AM CDT) Narrative 08/27/2016 12:00 AM CDT Ordered by an unspecified provider. Historical Provider Final Res ult documented in this encounter Visit Diagnoses Not on filedocumented in this encounter Care Teams Management Associate Relationship Specialty Start Date End Date Son Jeronimo MD PCP - General Family Medicine 07/27/18 11/26/21 Ben Amaral PA PCP - General Family Medicine 11/27/21 10/15/22 Katherine Page DO [address] [facility] [address] [place] [address] PCP - General Family Medicine 10/16/22 06/29/23 Hernan Ibarra MD [address] [place] [address] PCP - General Family Medicine 06/30/23 Dung Hudson MD [address] [address] Pulmonary Disease 10/16/22 Thuan Og MD [address] [place] [address] Referring Physician Obstetrics and Gynecology 10/16/22 documented as of this encounter
--- OUTSIDE RECORDS SUMMARY | 2024-04-11 16:14 | XMS_ITS | Data Portability ---
Author Organization [facility] CHARLIEGaston Address [address] [place] [address] Assessment Encounter Date Assessment Date Assessment LastModified by Organization Details LastModified Time 09/19/2015 09/19/2015 Uterine contour irregular and tender along right aspect of fundus. Still menstruating monthly despite uterine ablation. Will draw FSH, Estradiol and TSH levels due to vasomotor symptoms. Not available 09/19/2015 13:28:20 Plan of Treatment Reminders Order Date Submit Date Provider Last Modified By Organization Details Last Modified Time Details Appointments None recorded. Lab pap, IG + HPV, cervical 2014 015 [facility], [address] [place] [address], [address], [place], [address], 5 06:10:52 HSV (1+2) DNA, qual, PCR, unspecified specimen 2014 015 [facility], [address] [place] [address], [address], [place], [address], 5 10:37:45 bacterial vaginosis + vaginitis panel, vaginal 2014 015 [facility], [address] [place] [address], [address], [place], [address], 5 10:37:45 biopsy, endometrial 2014 015 [facility], [address] [place] [address], [address], [place], [address], 5 11:50:30 Referral None recorded. Procedures None recorded. Surgeries None recorded. Imaging MAMMO, screening, digital, bilateral 2014 015 [email or web address] Not available 5 10:10:43 US, transvagina l 2015 016 [email or web address] 7 [facility], [address] [place], [address], 6 09:23:04 Medication Orders None recorded. Patient TargetsNo targets recorded. Patient Instructions Encounter Date Encounter Id Patient Instructions Last Modified By Organization Details Last Modified Time 12/11/2014 [id number] heavy menstrual periods: care instructions Not available 12/12/2014 11:31:54 09/19/2015 [id number] hemorrhoids: car e instructions Not available 09/19/2015 13:28:20 Reason for Referral None Reported. Results Created Date Observation Date Name Description Value Unit Range Abnormal Flag Note LastModifiedBy Organization Detail LastModifiedTime 05/18/19 15 05/21/2014 bacte rial vagin osis + vagin itis panel , vagin al atopobium vaginae LOW - 0 score Not Available [facility] ([facility]) [address] [place], [address], 05/22/2014 10:37:45 05/18/19 15 05/21/2014 bacte rial vagin osis + vagin itis panel , vagin al bvab 2 LOW - 0 score Not Available [facility] ([facility]) [address] [place], [address], 05/22/2014 10:37:45 05/18/19 15 05/21/2014 bacte rial vagin osis + vagin itis panel , vagin al megasphaera 1 LOW - 0 score CALCU LATE TOTAL SCORE BY RICHARD Márquez THE 3 INDIV IDUAL BACTE RIAL VAGIN OSIS (BV) MARKE R SCORE S TOGET HER. TOTAL SCORE IS INTER PRETE D FOLLO WS: . TOTAL SCORE 0-1: INDIC ATES THE ABSEN CE OF BV. TOTAL SCORE 2: INDET ERMIN ATE FOR BV. ADDIT IONAL CLINI GEOVANY DATA SHOUL D BE EVALU ATED TO ESTAB KENTRELL A DIAGN OSIS. TOTAL SCORE 3-6: INDIC ATES THE PRESE NCE OF BV. . THIS TEST WAS DEVEL OPED AND ITS PERFO RMANC E ANA CTERI STICS DETER MINED BY [facility]. IT HAS NOT BEEN CLEAR ED OR APPRO KURTIS BY THE FOOD AND DRUG ADMIN ISTRA TION. THE FDA HAS DETER MINED THAT SUCH CLEAR ANCE OR APPRO CHANCE IS NOT NECES [place]. Not Available [facility] ([facility]) [address] [place], [address], 05/22/2014 10:37:45 05/18/19 15 05/21/2014 bacte rial vagin osis + vagin itis panel , vagin al trich vag by GHAZALA NEGATI VE negati ve Not Available [facility] ([facility]) [address] [place], [address], 05/22/2014 10:37:45 05/18/19 15 05/21/2014 bacte rial vagin osis + vagin itis panel , vagin al chlamydia trachomatis, GHAZALA NEGATI VE negati ve Not Available [facility] ([facility]) [address] [place], [address], 05/22/2014 10:37:45 05/18/19 15 05/21/2014 bacte rial vagin osis + vagin itis panel , vagin al neisseria gonorrhoeae, GHAZALA NEGATI VE negati ve Not Available [facility] ([facility]) [address] [place], [address], 05/22/2014 10:37:45 05/18/19 15 05/22/2014 bacte rial vagin osis + vagin itis panel , vagin al zaynab albicans, GHAZALA NEGATI VE negati ve Not Available [facility] ([facility]) [address] [place], [address], 05/22/2014 10:37:45 05/18/19 15 05/22/2014 bacte rial vagin osis + vagin itis panel , vagin al zaynab glabrata, GHAZALA NEGATI VE negati ve THIS TEST WAS DEVEL OPED AND ITS PERFO RMANC E ANA CTERI STICS DETER MINED BY [facility]. IT HAS NOT BEEN CLEAR ED OR APPRO KURTIS BY THE FOOD AND DRUG ADMIN ISTRA TION. THE FDA HAS DETER MINED THAT SUCH CLEAR ANCE OR APPRO CHANCE IS NOT [place]. Not Available [facility] ([facility]) [address] [place], [address], 05/22/2014 10:37:45 05/18/19 15 05/21/2014 HSV (1+2) DNA, qual, PCR, unspe cifie d speci men hsv 1 GHAZALA NEGATI VE negati ve Not Available [facility] ([facility]) [address] [place], [address], 05/22/2014 10:37:45 05/18/19 15 05/21/2014 HSV (1+2) DNA, qual, PCR, unspe cifie d speci men hsv 2 GHAZALA NEGATI VE negati ve Not Available [facility] ([facility]) [address] [place], [address], 05/22/2014 10:37:45 05/18/19 15 05/23/2014 pap, IG + HPV, cervi geovany diagnosis: COMMEN T NEGAT ANDREW FOR INTRA EPITH ELIAL LESJOANA N AND LIZZY HOUSTON . Not Available [facility] ([facility]) [address] [place], [address], 05/24/2014 06:10:52 05/18/19 15 05/23/2014 pap, IG + HPV, cervi geovany specimen adequacy: COMMEN T SATIS FACTO RY FOR EVALU ATION . ENDOC ERVIC AL AND/O R SQUAM OUS METAP LASTI C CELLS (ENDO CERVI GEOVANY COMPO NENT) ARE PRESE NT. Not Available [facility] ([facility]) [address] [facility], [place], [address], 05/24/2014 06:10:52 05/18/19 15 05/23/2014 pap, IG + HPV, cervi geovany clinician provided ICD9: DENIS Warner V72.3 1 ; ROUTI NE GYNEC OLOGI GEOVANY EXAMI NATIO N Not Available [facility] ([facility]) [address] [facility], [place], [address], 05/24/2014 06:10:52 05/18/19 15 05/23/2014 pap, IG + HPV, cervi geovany performed by: NOAM NAVARRO (ASCP ) Not Available [facility] ([facility]) [address] [facility], [place], [address], 05/24/2014 06:10:52 05/18/19 15 05/23/2014 pap, IG + HPV, cervi geovany . . Not Available [facility] ([facility]) [address] [place], [address], 05/24/2014 06:10:52 05/18/19 15 05/23/2014 pap, IG + HPV, cervi geovany note: DENIS Warner THE PAP SMEAR IS A SCREE KIRA TEST DESIG JENNIFER TO AID IN THE DETEC TION OF SUAD LIGNA NT AND MALIG NANT CONDI TIONS OF THE UTERI NE CERVI X. IT IS NOT A DIAGN OSTIC PROCE DURE AND SHOUL D NOT BE USED THE SOLE MEANS OF DETEC TING CERVI GEOVANY CANCE R. BOTH FALSE -POSI TIVE AND FALSE -NEGA TIVE REPOR TS DO OCCUR . . Not Available [facility] ([facility]) [address] [facility], [place], [address], 05/24/2014 06:10:52 05/18/19 15 05/23/2014 pap, IG + HPV, cervi geovany test methodology: DENIS Warner THIS LIQUI D BASED THINP REP(R ) PAP TEST WAS VIOLETTE RODRIGUEZ WITH THE USE OF AN IMAGE GUIDE Drake Powers. Not Available [facility] ([facility]) [address] [facility], [place], [address], 05/24/2014 06:10:52 05/18/1905/23/2014 pap, IG + HPV, cervi geovany HPV aptima NEGATI VE negati ve THIS TEST DETEC TS FOURT EEN HIGH- RISK HPV TYPES (16/1 8/31/ 33/35 /39/4 5/ 51/52 /56/5 8/59/ 66/68 ) WITHO UT DIFFE RENTI ATION . Not Available [facility] ([facility]) [address] [facility], [place], [address], 05/24/2014 06:10:52 12/12/19 15 12/14/2014 biops y, endom etria l . COMMEN T MATER IAL SUBMI TTED: . ENDOM ETRIA L BX Not Available [facility] ([facility]) [address] [place], [address], 12/14/2014 11:50:30 12/12/1912/14/2014 biops y, endom etria l . COMMEN T CLINI PATRICIA PROVI DED ICD-1 0: N92.0 Not Available [facility] ([facility]) [address] [place], [address], 12/14/2014 11:50:30 12/12/1912/14/2014 biops y, endom etria l . COMMEN T DIAGN OSIS: ENDOM ETRIA L BX: WEAKL Y PROLI FERAT ANDREW ENDOM ETRIU MNikhil SIMENTAL N ENDOM ETRIA L POLYP . NO HYPER PLASI A OR CARCI NOMA. GXA/1 2014 Not Available [facility] ([facility]) [address] [facility], [place], [address], 12/14/2014 11:50:30 12/12/1912/14/2014 biops y, endom etria l . COMMEN T ELECT IGNACIA SUAREZ D: . TRAN Corado MD, PATHO LOGIS T Not Available [facility] ([facility]) [address] [facility], [place], [address], 12/14/2014 11:50:30 12/12/1912/14/2014 biops y, endom etria l . COMMEN T GROSS DESCR IPTIO N: . RECEI KURTIS IN FORMA RODRIGUEZ LABEL ED LASHON GUS PRAFUL AND DESIG NATED ENDOM ETRIA L BIOPS IES ARE MULTI PLE FRAGM ENTS OF GOVEA/Y ELLOW AND BROWN TISSU E WITH MUCUS MEASU RING 1.8 X 1.7 X 0.2 CM IN AGGRE GATE. IT IS FILTE RED INTO AN EMBED DING BAG AND SUBMI TTED RECEI KURTIS IN A SINGL E CASSE TTE. XJW/C RY Not Available [facility] ([facility]) [address] [facility], [place], [address], 12/14/2014 11:50:30 12/12/1912/14/2014 biops y, endom etria l . COMMEN T PATHO LOGIS T PROVI DED ICD-1 0: N84.0 Not Available [facility] ([facility]) [address] [facility], [place], [address], 12/14/2014 11:50:30 12/12/192015 biops y, endom etria l . COMMEN T CPT . 66024 1 Not Available [facility] ([facility]) [address] [facility], [place], [address], 12/14/2014 11:50:30 12/21/19 15 12/20/2014 imagi ng/di agnos tic resul t No observ ation record ed. [facility] (Imaging) [address] [place], [address], 01/15/2015 15:57:42 09/24/19 16 09/21/2015 US, trans vagin al No observ ation record ed. [email or web address] [facility] (Imaging) [address] [place], [address], 10/10/2015 11:22:27 10/10/19 16 10/10/2015 US, trans vagin al No observ ation record ed. [facility] [address] [place], [address], 10/10/2015 11:33:13 Result Notes None recorded. Problems Name Problem SNOMED Code Status Onset Date Resolution Date Notes Provider Name and Address Organization Details Recorded Time Menorrhagia 939982316 Active Joby Campbell null, [place] - [facility] 6 12:49:49 Excessive and frequent menstruation 883553250 Active [place]y [place] [facility] 6 12:49:49 Hemorrhoids 75737657 Active Joby [place] [facility] 6 13:28:20 Menopausal syndrome 193347776 Active Joby [place] [facility] 6 13:28:20 Enlarged uterus 138546577 Active Joby [place] [facility] 6 13:28:20 Problem Notes None recorded. Procedures Surgical History Date Name Laterality Status Provider Name and Address Organization Details Recorded Time 5 Other completed Selam Zamora [place] - [facility] 09/19/2015 11:59:30 5 Endometrial Biopsy completed Joby Campbell [facility] 12/11/2014 13:51:32 5 Date of Last Pap Smear completed Selam Zamora MA [facility] 12/11/2014 12:59:38 1 Foot exam performed completed Selam Zamora MA [facility] 05/17/2014 17:05:04 1 Orthopedic Surgery completed Selam Zamora MA [facility] 05/17/2014 17:04:03 4 Most Recent Mammogram completed Selam Zamora MA [facility] 05/17/2014 17:03:26 Imaging Results Imaging Date Name Status LastModified by Organization Details LastModified Time 12/20/2014 imaging/diagnost ic result completed [facility] (Imaging) [address] [place], [address], 01/15/2015 15:57:42 09/21/2015 US, transvaginal completed [email or web address] [facility] (Imaging) [address] [place], [address], 10/10/2015 11:22:27 10/10/2015 US, transvaginal completed [facility] [address] [place], [address], 10/10/2015 11:33:13 Procedure Notes None recorded. Medical Equipment None Reported. Allergies Allergen ID Allergen Name Allergen Category Reaction Reaction Severity Criticality Documentation Date Start Date Code Code System Note Provider Name and Address Organization Details Recorded Time 73615 Substance with sulfonami de structure and antibacte rial mechanism of action (substanc e) medicatio n hives severe Not available 05/17/2014 24072 8003 SNOMED Not Available Not Available Not Available 50908 latex environme nt,medica tion itching mild Not available 05/17/2014 01478 91 RxNorm Not Available Not Available Not Available 29815 adhesive environme nt,medica tion other moderate Not available 05/17/2014 74752 UNK blist ers Not Available Not Available Not Available Medications Name Sig Start Date Stop Date Status Note LastModified by Organization Details LastModified Time [place] 5 mg-325 mg tablet Take 2 tablets every 6 hours by oral route. 016 active Not Available Not Available Not Avai lable Vitals Date Recorded Body height Body mass index (BMI) Body weight Systolic blood pressure Diastolic blood pressure Provider Name and Address Organization Details Last Updated DateTime 12/11/2014 170.18 cm 32.4 kg/m2 64356.62 059 g 100 mm[Hg] 68 mm[Hg] Selam Zamora MA [facility] 5 12:58:30 Date Recorded Body weight Body height Body mass index (BMI) Systolic blood pressure Diastolic blood pressure Provider Name and Address Organization Details Last Updated DateTime 01/15/2015 17204.25 111 g 170.18 cm 31.8 kg/m2 98 mm[Hg] 68 mm[Hg] Selam Zamora MA [facility] 5 15:24:26 Date Recorded Body mass index (BMI) Body height Body weight Systolic blood pressure Diastolic blood pressure Provider Name and Address Organization Details Last Updated DateTime 09/19/2015 30.9 kg/m2 170.18 cm 72458.69 689 g 108 mm[Hg] 64 mm[Hg] Selam Zamora MA [facility] 6 12:02:48 Date Recorded Body weight Body height Body mass index (BMI) Systolic blood pressure Diastolic blood pressure Provider Name and Address Organization Details Last Updated DateTime 05/17/2014 619938.2 8325 g 170.18 cm 35.2 kg/m2 102 mm[Hg] 78 mm[Hg] Selam Zamora MA [facility] 5 16:59:30 Social History Question Answer Notes LastModified by Organizat ion Details LastModified Time Tobacco Smoking Status Never Smoker Selam Zamora MA null, [facility] 05/17/2014 17:06:53 Do You Have An Advance Directive? No Information not available 05/17/2014 What Is Your Level Of Alcohol Consumption? Occasional Information not available 05/17/2014 Is Blood Transfusion Acceptable In An Emergency? Yes Information not available 05/17/2014 What Is Your Level Of Caffeine Consumption? Occasional Information not available 05/17/2014 How Much Tobacco Do You Chew? None Information not available 05/17/2014 Are You Currently Employed? Yes Information not available 05/17/2014 What Type Of Diet Are You Following? 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 With Others Information not available 05/17/2014 How Many Children Do You Have? 3 Information not available 05/17/2014 Performs Monthly Self-breast Exam? Yes Information no t available 05/17/2014 Do You Use Protection During Sex? No Information not available 05/17/2014 What Is Your Relationship Status? Information not available 05/17/2014 Seat Belts Used Routinely Yes Information not available 05/17/2014 Are You Sexually Active? Yes Information not available 05/17/2014 How Much Tobacco Do You Smoke? No Information not available 05/17/2014 General Stress Level Medium Information not available 05/17/2014 Do You Use Sunscreen Routinely? Yes [email or web address] Information not available 05/17/2014 Sex: Unknown Functional Status Question Answer Note LastModified by Organizat ion Details LastModified Time What is your exercise level? Occasional Information not available 05/17/2014 Mental Status None recorded. Family History Nothing Reported. Medical History Condition Response Heart Problems Y Other N High Blood Pressure N Breast Cancer N Thyroid Problems N Kidney or Bladder Problems N GI Problems N Lung Disease N Depression N Blood Clots N Acne N Breast Problem N Eating Disorder N Anemia N Anesthesia Complications N Headaches/Migraines Y Anxiety Disorder N Diabetes N Ovarian Cancer N Muscle, Joint, or Bone Problems N Blood Transfusions N Arthritis N Seizures/Epilepsy N Polyps N Infertility N Acid Reflux (GERD) N Cancer N Stroke N Abuse/Domestic Violence N Asthma Y Endometriosis N High Cholesterol N Hepatitis N Liver Disease N Heart Disease N Fibromyalgia N Pre-Eclampsia N Hypertension N Osteoporosis N Kidney Disease N Gynecological History Statement/Question Response Abnormal Pap N Flow Heavy STIs/STDs N HPV Vaccine N Duration of Flow (days) 4 Most Recent Mammogram 03/02/1993 Age at Menarche 17 Current Control Method Partner Vas ectomy Age at First Child 22 Frequency of Cycle (Q days) 23 Sexually Active? Y Menses Monthly Y Date of Last Pap Smear 05/17/2014 Sexual Problems? N LMP Approximate Desired Control Method None Obstetrics History GPAL:G 3 P 3 0 0 3 Type Value Multiple Births 0 Full Term 3 Induced 0 Spontaneous 0 Premature 0 Living 3 Ectopics 0 Total 3 Past Encounters Encounter ID Performer Location Encounter Start Date Encounter Closed Date Diagnosis/Indication Diagnosis SNOMED-CT Code Diagnosis ICD10 Code Diagnosis Note [id number] Mary Jane Rodriguez (TARIFF INSPECTOR) [address] [place] [phone] 05/17/2014 15:18:57 05/18/2014 11:43:48 Gynecologic examination [id number] Patient is very interested in considerin g a Novasure endometria l ablation. She states her menses are getting increasing ly heavy with clots and cramping. Cannot use NSAID's due to asthma exacerbati on. Screening mammography [id number] Jennifer (TARIFF INSPECTOR) [address] [place] [phone] 12/11/2014 11:31:48 12/11/2014 14:04:10 Menorrhagia 840800018 N92.0 44 year old female with history of goiter and presently on thyroid replacemen t therapy, having worsening menorrhagi a since starting on thyroid replacemen t medication . Now on Levothroxi ne daily. Very interested in scheduling Novasure endometria l ablation. Will perform endometria l biopsy today to rule out endometria l neoplasm. [id number] Carol Rodriguez (TARIFF INSPECTOR) [address] [place] [phone] 01/15/2015 15:07:05 01/17/2015 16:01:16 Postoperative visit [id number] Z09 3 weeks s/p NOVASURE ABLATION. No complaints . Very happy with result. Speculum exam normal, no pelvic tenderness . May resume intimacy. Followup 2015 [id number] Brina Rodriguez (TARIFF INSPECTOR) [address] [place] [phone] 09/19/2015 11:08:20 09/21/2015 09:57:24 Hemorrhoids 76550453 K64.9 Menopausal syndrome 1237 08785 N95.9 Enlarged uterus 36585519 4 N85.2 Health Concerns Section Related Observation LastModified by Organization Detai ls LastModified Time None Recorded Concern Status LastModified by Organization Details LastModified Time None Recorded Advance Directives Directive N: Payers Encounter Date Sequence Insurance Name Policy Number Policy Alcaraz Covered Member ID Alcaraz Member ID Guarantor Name 05/17/2014 1 [facility]: [employer] (PP[employer]) [id number] Vamshi C Praful [id number] Amber Praful 12/11/2014 1 [facility]: [employer] [id number] Vamshi C Praful [id number] Amber Praful 01/15/2015 1 [facility]: [employer] [id number] Vamshi C Praful [id number] Amber Praful 09/19/2015 1 [facility]: [employer]) [id number] Vamshi C Praful [id number] Amber Praful Notes Date Note Type Note Provider Name and Address Organization Details Recorded Time 09/19/2015 text/html Menopausal SymptomsReported bypatient.Onset/Timing :1-6 months Quality:no night sweats; no change in libido; normal menses;hot flashes 1-3 times/day;sleep issues;mood changes Severity:severe; once monthly Duration:intermittent Aggravating Factors:none Associated Symptoms:no abdominal pain; no pelvic pain; no abnormal bleeding; no vaginal discharge; no dysuria; no dyspareunia; no fever; no vaginal dryness; no depression; no anxiety; no skin changes; no loss of libido; no changes in urination;changes in bowel function;irritabilityN otes:intermittent constipation Joby Campbell [facility] [place] - [facility] 09/19/2015 13:28:34 OBGyn Episode No OBEpisode recorded.
--- OUTSIDE RECORDS SUMMARY | 2024-04-11 16:14 | XMS_ITS | Encounter Summary ---
Author Organization [facility] Facility Care Team Providers Care Heavy Line Technician Name Role Phone Son Jeronimo MD Primary Care Provider [phone] Ben Amaral Primary Care Provider [phone] Katherine Page DO Primary Care Provider [phone] Dung Hudson MD Unavailable Thuan Og MD Unavailable [phone] Hernan Ibarra MD Primary Care Provider Encounter Details Date Type Department Care Team (Latest Contact Info) Description 10/01/2016 Orders Only [facility] ProviderSandra MD [address] [place] [address] Social History Tobacco Use Types Packs/Day Years Used Date Smoking Tobacco: Never Assessed Comments Unknown Sex and Gender Information Value Date Recorded Sex Assigned at Not on file Legal Sex Female 11:58 PM FEED MILL TENDER Gender Identity Female 07/27/2018 12:12 PM CDT Sexual Orientation Not on file documented as of this encounter Plan of Treatment Upcoming Encounters Date Type Department Care Team (Late st Contact Info) Description 04/12/2024 12:00 PM FEED MILL TENDER Hospital Encounter [address] [place] [address] Vivek Mcintosh MD [address] [facility] [address] [place] [address] 04/12/2024 12:00 PM FEED MILL TENDER - 04/12/2024 12:30 PM FEED MILL TENDER Surgery [facility] [address] [place] [address] Vivek Mcintosh MD [address] [facility] [address] [place] [address] COLONOSCOPY Scheduled Procedures Name Priority Associated Diagnoses Date/Ti me COLONOSCOPY LUQ pain Encounter for screening colonoscopy Gastroesophageal reflux disease, unspecified whether esophagitis present History of Larsen's esophagus Dyspepsia History of Helicobacter pylori infection 04/12/2024 12:00 PM FEED MILL TENDER ESOPHAGOGASTRODUODENOSCOPY LUQ pain Encounter for screening colonoscopy Gastroesophageal reflux disease, unspecified whether esophagitis present History of Larsen's esophagus Dyspepsia History of Helicobacter pylori infection 04/12/2024 12:00 PM FEED MILL TENDER documented as of this encounter Procedures Procedure Name Priority Date/Time Associated Diagnosis Comments SCAN - LABS 10/06/2016 12:00 AM CDT documented in this encounter Results * SCAN - LABS (10/06/2016 12:00 AM CDT) Narrative 10/06/2016 12:00 AM CDT Ordered by an unspecified provider. Historical Provider Final Res ult documented in this encounter Visit Diagnoses Not on filedocumented in this encounter Care Teams Heavy Line Technician Relationship Specialty Start Date End Date Son Jeronimo MD PCP - General Family Medicine 07/27/18 11/26/21 eBn Amaral PA PCP - General Family Medicine 11/27/21 10/15/22 Katherine Page DO [address] [facility] [address] [address] PCP - General Family Medicine 10/16/22 06/29/23 Hernan Ibarra MD [address] [place] [address] PCP - General Family Medicine 06/30/23 Dung Hudson MD [address] [address] Pulmonary Disease 10/16/22 Thuan Og MD [address] [place] [address] Referring Physician Obstetrics and Gynecology 10/16/22 documented as of this encounter
--- OUTSIDE RECORDS SUMMARY | 2024-04-11 16:14 | XMS_ITS | Encounter Summary ---
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 Name Role Phone Son Jeronimo MD Primary Care Provider [phone] Ben Amaral Primary Care Provider [phone] Katherine Page DO Primary Care Provider [phone] Dung Hudson MD Unavailable Thuan Og MD Unavailable [phone] Hernan Ibarra MD Primary Care Provider [phone] Encounter Details Date Type Department Care Team (Latest Contact Info) Description 06/27/2015 Orders Only [facility]INCON[facility] ProviderSandra MD [address] [place] [id number] Social History Tobacco Use Types Packs/Day Years Used Date Smoking Tobacco: Never Assessed Comments Unknown Sex and Gender Information Value Date Recorded Sex Assigned at Not on file Legal Sex Female 11:58 PM 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 Gender Identity Female 07/27/2018 12:12 PM CDT Sexual Orientation Not on file documented as of this encounter Plan of Treatment Upcoming Encounters Date Type Department Care Team (Late st Contact Info) Description 04/12/2024 12:00 PM MATTRESS PACKER Hospital Encounter [address] [place] [address] Vivek Mcintosh MD [address] [place] [address] 04/12/2024 12:00 PM MATTRESS PACKER - 04/12/2024 12:30 PM MATTRESS PACKER Surgery [facility] [address] [place] [address] Vivek Mcintosh MD [address] [place] [address] COLONOSCOPY Scheduled Procedures Name Priority Associated Diagnoses Date/Ti me COLONOSCOPY LUQ pain Encounter for screening colonoscopy Gastroesophageal reflux disease, unspecified whether esophagitis present History of Larsen's esophagus Dyspepsia History of Helicobacter pylori infection 04/12/2024 12:00 PM MATTRESS PACKER ESOPHAGOGASTRODUODENOSCOPY LUQ pain Encounter for screening colonoscopy Gastroesophageal reflux disease, unspecified whether esophagitis present History of Larsen's esophagus Dyspepsia History of Helicobacter pylori infection 04/12/2024 12:00 PM MATTRESS PACKER documented as of this encounter Procedures Procedure Name Priority Date/Time Associated Diagnosis Comments SCAN - LABS 06/27/2015 12:00 AM CDT documented in this encounter Results * SCAN - LABS (06/27/2015 12:00 AM CDT) Narrative 06/27/2015 12:00 AM CDT Ordered by an unspecified provider. Historical Provider Final Res ult documented in this encounter Visit Diagnoses Not on filedocumented in this encounter Care Teams Pipe And Tank Fabricator Relationship Specialty Start Date End Date Son Jeronimo MD PCP - General Family Medicine 07/27/18 11/26/21 Ben Amaral PA PCP - General Family Medicine 11/27/21 10/15/22 Katherine Page DO [address] [address] PCP - General Family Medicine 10/16/22 06/29/23 Hernan Ibarra MD [address] [place] [address] PCP - General Family Medicine 06/30/23 Dung Hudson MD [address] [address] Pulmonary Disease 10/16/22 Thuan Og MD [address] [place] [address] Referring Physician Obstetrics and Gynecology 10/16/22 documented as of this encounter
--- OUTSIDE RECORDS SUMMARY | 2024-04-11 16:14 | XMS_ITS | Data Portability ---
Author Organization [place] [employer], Main Office Address [address] [place] [address] Care Team Providers Care Capacity Manager Name Role Phone FOREST IBARRA Primary Care Provider [phone] SANDY PEREZ It Sales Consultant Assessment Encounter Date Assessment Date Assessment LastModified by Organization Details LastModified Time 05/09/2022 05/09/2022 Follow-up 4 months continue current therapy [email or web address] Not available 05/09/2022 10:36:33 11/05/2022 11/05/2022 51-year-old female presents for evaluation of her bilateral wrist. She is a previous patient of Dr. Ibarra. She reports she had a fall from April 2019 and since then has had pain in her bilateral wrists. It is worse on her left side. It hurts more with activities. Pain is located over the dorsal aspect of the wrist and radiates into the thumb. 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 She also reports some pain with gripping, as well as some weakness. She has tried some soft wrist braces and taken [id number] anti-inflammator ies. These help somewhat, but she still has symptoms on a daily basis. Review of systems per patient questionnaire Physical exam: She has tenderness palpation over the 1st extensor compartment. Positive Carolyn's. No tenderness of the thumb base, negative grind. She has sensation intact to light touch and good movement of her thumb. She also some soreness over the volar aspect of the wrist of thumb, around the FCR. X-rays of the wrist were reviewed, demonstrating no acute bony abnormality We will continue conservative management. We gave her order for meloxicam and also she should do topical Voltaren. We will give her bilateral thumb spica braces to help with immobilization. For work restrictions, she should avoid repetitive motion and rest as needed, otherwise she may continue working as she has been. We will see her back in 4-6 weeks for recheck. [email or web address] Not available 11/05/2022 14:48:17 12/30/2022 12/30/2022 This note is dictated and transcribed by [employer]. Engraver Tender variances may occur. Despite proofreading, typographical errors may occur. [email or web address] Not available 12/30/2022 11:46:38 Plan of Treatment Reminders Order Date Submit Date Provider Last Modified By Organization Details Last Modified Time Details Appointments None recorded. Lab None recorded. Referral None recorded. Procedures upper endoscopy procedure (EGD) (PROC) 2023 024 [facility] (Pre-Screen), [address] [place] [address], [address], 13:43:45 colonoscopy procedure (PROC) 2023 024 [email or web address] Not available 13:44:05 Surgeries None recorded. Imaging XR, wrist, 3 or more view 2022 023 [facility], [address], [place], [address], 10:57:09 XR, foot, 3 or more view 2022 023 carly Serrato [facility] [place], [address] [facility], [address], [place], [address], 3 11:47:36 Medication Orders Mobic 15 mg tablet 2022 023 [email or web address] [id number], [address], [place], [place], [id number], 17:10:59 Sutab 1.479-0.188 -0.225 gram tablet 2023 024 [facility], [address], [address], [place], [place], [id number], 16:08:06 colestipol 1 gram tablet 2023 024 [id number], [address], [place], [place], [id number], 16:05:38 Patient TargetsNo targets recorded. Patient Instructions Encounter Date Encounter Id Patient Instructions Last Modified By Organization Details Last Modified Time 2023 [id number] REFL[employer] DIET [email or web address] Not available 0 2023 16:03:36 . PT WITH BE/ GE RD . RECOMMEND AN EGD . NEED TO R/O DYSPLASIA. PT WITH LLQ PAIN PT NEEDS A SCREENING COLON . R/O POLYP . RECOMMEND A COLONOSOPY . . Risks benefits and complications were explained to the pt. ( BLEEDING PERFORATION , INFECTION , ). PT VERBALIZES UNDERSTANDING AND IS WILLING TO PROCEDE . [email or web address] Not available 2023 16:04:54 Reason for Referral None Reported. Results Created Date Observation Date Name Description Value Unit Range Abnormal Flag Note LastModifiedBy Organization Detail LastModifiedTime 11/20/19 22 11/19/2021 COLOG UARD cologuard result cancel led - order d not applic able Not Available [facility] (Cologuard Orders Only) [address], [place], [address], 11/19/2021 08:22:12 04/15/19 23 04/10/2022 compl ete [facility] juli metry * No observ ation record ed. [id number] [facility] (One Call Scheduling) [address] [facility], [place], [address], 04/30/2022 00:49:59 11/06/19 23 XR, wrist , 3 or more view No observ ation record ed. [email or web address] [facility] [address], [place], [address], 11/05/2022 11:42:41 12/31/19 23 XR, foot, 3 or more view No observ ation record ed. [email or web address] [facility] [place] [address], [address], [place], [address], 12/30/2022 11:47:26 Result Notes None recorded. Problems Name Problem SNOMED Code Status Onset Date Resolution Date Notes Provider Name and Address Organization Details Recorded Time Irritable bowel syndrome 30778624 Active 2016 Not Available [facility] 4 10:25:04 Body mass index 30+ - obesity 645797257 Active 2017 Not Available [facility] 4 10:25:04 Gastroeso phageal reflux disease 258623015 Active Not Available [facility] 4 10:25:04 Larsen's esophagus 510175860 Active Not Available [facility] 4 10:25:04 Pain in left foot 81434945010 9107 Completed 201903/12/2021 Not Available [facility] 3 00:46:01 Goiter 7110937 Active Not Available [facility] 4 10:25:04 Migraine 92744325 Active Not Available [facility] 4 10:25:05 Hypothyro idism 94625400 Active 2016 Not Available [facility] 4 10:25:05 Mitral valve prolapse 227497600 Active Not Available [facility] 4 10:25:05 Obesity 142011430 Active 2022 Not Available [facility] 4 10:25:05 Mild persisten t asthma 768699497 Active 2022 Not Available [facility] 4 10:25:05 Hyperlipi demia 22563357 Active 2021 Not Available [facility] 4 10:25:05 Essential hypertens ion 18607679 Active 2021 Not Available [facility] 4 10:25:05 Allergic rhinitis 88546044 Active Not Available [facility] 4 10:25:05 Posterior rhinorrhe a 81355588 Active 2022 Not Available [facility] 4 10:25:05 Left lower quadrant pain 344109947 Active 2023 Katherine Casiano MD [address], [address] , [facility] 4 16:01:21 Postchole cystectom y syndrome 58139963 Active 2023 Katherine Casiano MD [address], [address] , [facility] [employer] [facility] 4 16:02:21 Notes:Medical History: Migra ine headaches COVID infection 04/2021 Rhinosinusitis with postnasal drip Eosinophils 30/uL IgE 32 IU/mL Alpha-1 antitrypsin PiMM 158 mg% Mild persistent asthma Obesity Hypothyroidism Hyperlipidemia Hypertension MVP on Bystolic JOSH with Larsen's esophagus Diarrhea-predominant IBS Vit D deficiency Left plantar fasciitis 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 Procedures Surgical History Date Name Laterality Status Provider Name and Address Organization Details Recorded Time 10/30/19 21 Cholecystectomy completed Not Available [facility] 04/30/2022 00:42:46 10/30/19 21 Gallbladder Surgery completed Not Available [facility] 04/30/2022 00:42:46 excision of bunion completed Not Available [facility] 04/30/2022 00:42:46 Shoulder completed Not Available [facility] 04/30/2022 00:42:46 Imaging Results Imaging Date Name Status LastModified by Organization Details LastModified Time 04/10/2022 complete PFT w/ post bronchodilator spirometry* completed [id number] [facility] (One Call Scheduling) [address] [place], [address], 04/30/2022 00:49:59 11/05/2022 XR, wrist, 3 or more view completed [email or web address] [facility] [address], [place], [address], 11/05/2022 11:42:41 12/30/2022 XR, foot, 3 or more view completed [email or web address] [facility] [place] [address], [address], [place], [address], 12/30/2022 11:47:26 Procedure Notes None recorded. Medical Equipment None Reported. Allergies Allergen ID Allergen Name Allergen Category Reaction Reaction Severity Criticality Documentation Date Start Date Code Code System Note Provider Name and Address Organization Details Recorded Time 199 Substance with sulfonami de structure and antibacte rial mechanism of action (substanc e) medicatio n Not available Not available Not available 04/30/2022 70731 8003 SNOMED swell ing of lips and tingl ing of mouth Not Available [facility] 3 00:49:40 200 Non-stero idal anti-infl ammatory agent (product) medicatio n Not available Not available Not available 04/30/2022 14908 005 SNOMED sever e abdom inal pain Not Available [facility] 3 00:49:40 201 erythromy nish medicatio n Not available Not available Not available 04/30/2022 4053 RxNorm abdom inal pain Not Available [facility] 3 00:49:40 202 Celebrex medicatio n other Not available Not available 04/30/2022 85494 7 RxNorm tingl y lips/ mouth Not Available [facility] 3 00:49:40 Medications Name Sig Start Date Stop Date Status Note LastModified by Organization Details LastModified Time carisopro dol 350 mg tablet active Not Available Not Available No t Available cyclobenz aprine 10 mg tablet Take 1 tablet 3 times a day by oral route as needed. active Not Available Not Available No t Available amoxicill in 500 mg capsule TAKE ONE CAPSULE BY MOUTH THREE TIMES DAILY 11/19 completed Not Available Not Available Not Available medroxypr ogesteron e 10 mg tablet Take 1 tablet every day by oral route for 10 days. 08/24 completed Not Available Not Available Not Available Qvar 80 mcg/actua tion Metered Aerosol oral inhaler Inhale 2 puffs twice a day by inhalati on route. 08/24 completed Not Available Not Available Not Available Xanax 0.5 mg tablet Take 1 tablet twice a day by oral route as needed. 05/14 completed Not Available Not Available Not Available prednison e 10 mg tablet TAKE 6 TABLETS DAILY FOR 3 DAYS THEN 4 TABLETS DAILY FOR 3 DAYS THEN 2 TABLETS DAILY FOR 3 DAYS THEN 1 TABLET DAILY FOR 3 DAYS 11/19 completed Not Available Not Available Not Available doxycycli ne hyclate 100 mg capsule TAKE 1 CAPSULE BY MOUTH TWICE DAILY 03/13 completed Not Available Not Available Not Available cefuroxim e axetil 250 mg tablet 05/25 completed Not Available Not Available Not Available ipratropi um 0.5 mg-albute rol 3 mg (2.5 mg base)/3 mL nebulizat ion soln USE 3 ML VIA NEBULIZE R FOUR TIMES DAILY NEEDED active Not Available Not Available No t Available nabumeton e 750 mg tablet TAKE 1 TABLET BY MOUTH TWICE DAILY WITH FOOD 11/19 completed Not Available Not Available Not Available atorvasta tin 10 mg tablet TAKE 1 TABLET BY MOUTH EVERY DAY 04/22 completed see pt case 04/22/19 22 Not Available Not Available Not Available benzonata te 200 mg capsule TAKE 1 CAPSULE BY MOUTH THREE TIMES DAILY active Not Available Not Available No t Available liothyron ine 25 mcg tablet 08/24 completed has not been on for awhile needs refills Not Available Not Available Not Available meloxicam 15 mg tablet TAKE 1 TABLET BY MOUTH EVERY DAY active Not Available Not Available No t Available sucralfat e 1 gram tablet 11/19 completed Not Available Not Available Not Available ibuprofen 200 mg capsule Take 2 capsules as needed by oral route. 2013 active Not Available Not Available Not Avai lable ondansetr on HCl 4 mg tablet active Not Available Not Available No t Available prednison e 20 mg tablet TAKE 1 TABLET BY MOUTH TWICE DAILY active Not Available Not Available No t Available rizatript an 10 mg tablet TAKE 1 TABLET(1 0 MG) BY MOUTH 1 TIME. MAY REPEAT AT 2 HOUR INTERVAL S. DO NOT EXCEED 30 MG IN 24 HOURS active Not Available Not Available No t Available Mobic 7.5 mg tablet Take 1 tablet every day by oral route as needed for 30 days. 05/16 completed take with food Not Available Not Available Not Available atenolol 25 mg tablet Take 1 tablet every day by oral route. 2013 active Not Available Not Available Not Avai lable Zithromax Z-Jeremy 250 mg tablet Take 1 dose pk by oral route as directed . 03/12 completed Not Available Not Available Not Available phentermi ne 15 mg capsule TAKE ONE CAPSULE BY MOUTH EVERY MORNING 04/11 completed changed to 37.5mg per Dr Valiente at visit Not Available Not Available Not Available topiramat e 25 mg tablet active Not Available Not Available Not Available Zyrtec 10 mg tablet Take 1 tablet every day by oral route. 09/27 completed Not Available Not Available Not Available phentermi ne 37.5 mg tablet TAKE 1 TABLET BY MOUTH DAILY 2 HOURS AFTER BREAKFAS T 11/05 completed Not Available Not Available Not Available ciproflox acin 500 mg tablet TAKE 1 TABLET BY MOUTH TWICE DAILY 11/19 completed Not Available Not Available Not Available folic acid 400 mcg tablet Take 1 tablet every day by oral route in the morning for 90 days. 12/16 completed Not Available Not Available Not Available omeprazol e 40 mg capsule,d elayed release TAKE 1 CAPSULE BY MOUTH DAILY active Not Available Not Available No t Available liothyron ine 5 mcg tablet TAKE 1 TABLET TWICE A DAY AROUND THE CLOCK active Not Available Not Available No t Available tramadol 50 mg tablet 09/27 completed Not Available Not Available Not Available amoxicill in 500 mg tablet TAKE 2 TABLET BY MOUTH EVERY 8 HOURS active Not Available Not Available No t Available levothyro xine 75 mcg tablet Take 1 tablet every day by oral route. 05/16 completed Not Available Not Available Not Available oxycodone -acetamin ophen 5 mg-325 mg tablet TAKE 1 TABLET BY MOUTH EVERY 4 TO 6 HOURS NEEDED FOR PAIN 11/19 completed Not Available Not Available Not Available Kenalog 10 mg/mL suspensio n for injection In office injectio n administ ered by the provider 06/[address] [facility]: [phone] 4-20 Not Available Not Available Not Available benzonata te 100 mg capsule TAKE 1 CAPSULE BY MOUTH THREE TIMES DAILY NEEDED active Not Available Not Available No t Available rizatript an 10 mg disintegr ating tablet DISSOLVE 1 TABLET ON THE TONGUE AT ONSET OF HEADACHE . REPEAT IN 2 HOURS NEEDED UP TO MAXIMUM OF 3 TABLETS IN 24 HOURS active Not Available Not Available No t Available hydrocodo ne 7.5 mg-acetam inophen 325 mg tablet TAKE 1 TABLET BY MOUTH EVERY 6 TO 8 HOURS NEEDED FOR PAIN active Not Available Not Available No t Available pantopraz ole 40 mg tablet,de layed release TAKE 1 TABLET BY MOUTH TWICE DAILY FOR 30 DAYS THEN 1 TABLET DAILY active Not Available Not Available No t Available cyanocoba hilario (vit B-12) 1,000 mcg/mL injection solution Inject 1 mL every week by subcutan eous route in the morning for 90 days. active Not Available Not Available No t Available dexametha sone 4 mg tablet TAKE 1 TABLET BY MOUTH ONCE DAILY FOR 4 DAYS active Not Available Not Available No t Available prednison e 50 mg tablet Take 1 tablet every day by oral route in the morning for 5 days. active Not Available Not Available No t Available lidocaine 5 % topical patch APPLY TO AFFECTED AREA ONCE DAILY FOR UP TO 12 HOURS OF USE 06/07 completed Not Available Not Available Not Available Advair Diskus 500 mcg-50 mcg/dose powder for inhalatio n Inhale 1 puff twice a day by inhalati on route. 2013 active Not Available Not Available Not Avai lable Synthroid 50 mcg tablet TAKE ONE TABLET DAILY IN THE MORNING ON AN EMPTY STOMACH 08/24 completed Not Available Not Available Not Available diclofena c sodium 75 mg tablet,de layed release TAKE 1 TABLET BY MOUTH TWICE DAILY active Not Available Not Available No t Available insulin syringe U-100 with needle 1 mL 31 gauge x 5/16 USE ONCE WEEKLY FOR B12 03/12 completed Not Available Not Available Not Available monteluka st 10 mg tablet TAKE 1 TABLET BY MOUTH EVERY NIGHT AT BEDTIME active Not Available Not Available No t Available codeine 10 mg-guaife nesin 100 mg/5 mL oral liquid TAKE 10ML BY MOUTH EVERY SIX HOURS NEEDED 08/24 completed Not Available Not Available Not Available amoxicill in 400 mg/5 mL oral suspensio n SHAKE LIQUID AND TAKE 10 ML BY MOUTH EVERY 12 HOURS FOR 10 DAYS 04/11 completed Not Available Not Available Not Available metoprolo l succinate ER 25 mg tablet,ex tended release 24 hr 05/14 completed Not Available Not Available Not Available ergocalci ferol (vitamin D2) 1,250 mcg (50,000 unit) capsule TAKE 1 CAPSULE BY MOUTH EVERY WEEK IN THE MORNING 12/16 completed Not Available Not Available Not Available levalbute rol 1.25 mg/3 mL solution for nebulizat ion active Not Available Not Available Not Available epinephri ne 0.3 mg/0.3 mL injection , auto-inje ctor INJECT 0.3 ML IN THE MUSCLE DIRECTED NEEDED FOR ANAPHYLA XIS active Not Available Not Available No t Available ibuprofen 600 mg tablet TAKE 1 TABLET BY MOUTH EVERY 8 HOURS active Not Available Not Available No t Available cefuroxim e axetil 500 mg tablet active Not Available Not Available Not Available methylpre dnisolone 4 mg tablets in a dose pack FOLLOW PACKAGE DIRECTIO NS active Not Available Not Available No t Available albuterol sulfate HFA 90 mcg/actua tion aerosol inhaler INHALE 1 PUFF BY MOUTH EVERY 4 HOURS NEEDED FOR WHEEZING active Not Available Not Available No t Available ipratropi um bromide 42 mcg (0.06 %) nasal spray [place] 1 spray 4 times a day by intranas al route as needed. active Not Available Not Available No t Available rizatript an 5 mg disintegr ating tablet Take by oral route. 08/24 completed Not Available Not Available Not Available ondansetr on 4 mg disintegr ating tablet DISSOLVE 1 TABLET ON THE TONGUE EVERY 6 HOURS NEEDED FOR NAUSEA OR VOMITING active Not Available Not Available No t Available cefdinir 300 mg capsule Take 1 capsule every 12 hours by oral route for 10 days. active Not Available Not Available No t Available fluticaso ne propionat e 50 mcg/actua tion nasal spray,emelina pension SHAKE LIQUID AND USE 1 SPRAY IN EACH NOSTRIL EVERY DAY active Not Available Not Available No t Available colestipo l 1 gram tablet TAKE 2 TABLETS BY MOUTH EVERY DAY DIRECTED FOR DIARRHEA active Not Available Not Available No t Available dicyclomi ne 10 mg capsule Take 1 capsule as needed by oral route. 09/27 completed Not Available Not Available Not Available Ambien 10 mg tablet Take 1 tablet every day by oral route at bedtime. 2013 active as needed Not Available Not Available Not Available naproxen 500 mg tablet TAKE 1 TABLET BY MOUTH TWICE DAILY WITH FOOD 06/06 completed Not Available Not Available Not Available amoxicill in 875 mg-potass ium clavulana te 125 mg tablet TAKE 1 TABLET BY MOUTH TWICE DAILY active Not Available Not Available No t Available amoxicill in-potass ium clavulana te 1,000 mg-62.5 mg tablet,ex t.rel 12hr Take 2 tablets every 12 hours by oral route as directed for 7 days. 05/14 completed Not Available Not Available Not Available metaxalon e 800 mg tablet TAKE 1 TABLET BY MOUTH EVERY DAY AT BEDTIME FOR LEG PAIN 06/06 completed Not Available Not Available Not Available rosuvasta tin 10 mg tablet TAKE 1 TABLET BY MOUTH EVERY DAY active Not Available Not Available No t Available Flovent HFA 220 mcg/actua tion aerosol inhaler INHALE 2 PUFFS BY MOUTH EVERY 12 HOURS VIA CHAMBER DEVICE 03/13 completed Not Available Not Available Not Available Asmanex Twisthale r 220 mcg/actua tion(120 doses) breath activated inhlr Inhale 1 puff twice a day by inhalati on route for 30 days. 09/27 completed Not Available Not Available Not Available Zofran as needed 2013 active Not Available Not Available Not Avai lable omeprazol e Take one tablet daily 03/07 completed duplicat e Not Available Not Available Not Available Claritin- D 24 Hour 05/16 completed Not Available Not Available Not Available Mucinex hs 08/24 completed Not Available Not Available Not Available lidocaine (PF) 10 mg/mL (1 %) injection solution In office injectio n administ ered by the provider 06/[address] [facility]: [phone] 08-16 Not Available Not Available Not Available Nascobal 500 mcg/spray nasal spray USE 1 SPRAY NASALLY EVERY WEEK IN THE MORNING 11/19 completed Not Available Not Available Not Available Xopenex HFA two puffs four times daily as needed 08/24 completed Not Available Not Available Not Available Symbicort 160 mcg-4.5 mcg/actua tion HFA aerosol inhaler Inhale 2 puffs twice a day by inhalati on route. 05/14 completed Not Available Not Available Not Available nebivolol 5 mg tablet TAKE 1 TABLET BY MOUTH DAILY active Not Available Not Available No t Available Omnaris 50 mcg nasal spray [place] 2 sprays every day by intranas al route as needed. 08/24 completed Not Available Not Available Not Available cholecalc iferol (vitamin D3) 50 mcg (2,000 unit) capsule TAKE 1 CAPSULE BY MOUTH EVERY MORNING 12/16 completed Not Available Not Available Not Available levothyro xine 75 mcg capsule TAKE 1 CAPSULE BY MOUTH ON TUESDAYS , THURSDAY S, THURSDAY S, AND SUNDAYS, ALTERNAT ING WITH 50MCG CAPSULES 11/05 completed Not Available Not Available Not Available levothyro xine 50 mcg capsule TAKE 1 CAPSULE BY MOUTH ON MONDAYS, YS, AND FRIDAYS, ALTERNAT ING WITH 75MCG CAPSULES 11/05 completed Not Available Not Available Not Available Dulera 200 mcg-5 mcg/actua tion HFA aerosol inhaler Inhale 2 puffs twice a day by inhalati on route. 08/24 completed Not Available Not Available Not Available OUTREACH CONSULTANT Thyroid 30 mg tablet 05/25 completed Not Available Not Available Not Available OUTREACH CONSULTANT Thyroid 90 mg tablet 05/25 completed Not Available Not Available Not Available Breo Ellipta 100 mcg-25 mcg/dose powder for inhalatio n INHALE 1 PUFF BY MOUTH EVERY DAY active Not Available Not Available No t Available guaifenes in ER 600 mg tablet, extended release 12 hr 04/11 completed Not Available Not Available Not Available dicyclomi ne 10 mg tablet Take 1 tablet every day by oral route as needed. 11/19 completed Not Available Not Available Not Available Stiolto Respimat 2.5 mcg-2.5 mcg/actua tion solution for inhalatio n Inhale 2 puffs every day by inhalati on route. active Not Available Not Available No t Available Trelegy Ellipta 200 mcg-62.5 mcg-25 mcg powder for inhalatio n active Not Available Not Available Not Available Sutab 1.479-0.1 88-0.225 gram tablet DIRECTED active Not Available Not Available No t Available Vitals Date Recorded Body height Body mass index (BMI) Body weight Body temperature Heart rate Systolic blood pressure Diastolic blood pressure Provider Name and Address Organization Details Last Updated DateTime 3 170.18 cm 38.4 kg/m2 398942. 13 g 97.3 [degF] 99 /min 120 mm[Hg] 82 mm[Hg] Gladys Resendez Queta [facility] [employer] [facility] 3 09:49:10 Date Recorded Body height Body mass index (BMI) Body weight Provider Name and Address Organization Details Last Updated DateTime 11/05/2022 170.18 cm 38.4 kg/m2 040010.13 g ESVIN Luque [facility] [employer] [facility] 11/05/2022 11:41:44 Date Recorded Body height Body mass index (BMI) Body weight Heart rate Respiratory rate Oxygen saturation Oxygen saturation in Arterial blood by Pulse oximetry Systolic blood pressure Diastolic blood pressure Provider Name and Address Organization Details Last Updated DateTime 3 170.18 cm 38.4 kg/m2 679001. 13 g 72 /min 14 /min 98 % 98 % 125 mm[Hg] 76 mm[Hg] Muna Dobson [facility] [employer] [facility] 3 11:49:47 Date Recorded Body height Body mass index (BMI) Body weight Heart rate Respiratory rate Oxygen saturation Oxygen saturation in Arterial blood by Pulse oximetry Systolic blood pressure Diastolic blood pressure Provider Name and Address Organization Details Last Updated DateTime 3 170.18 cm 38.4 kg/m2 042567. 13 g 70 /min 14 /min 99 % 99 % 103 mm[Hg] 67 mm[Hg] Muna Dobson LA [employer] [facility] [employer] [facility] 3 10:54:07 Date Recorded Body height Body mass index (BMI) Body weight Heart rate Oxygen saturation Oxygen saturation in Arterial blood by Pulse oximetry Systolic blood pressure Diastolic blood pressure Provider Name and Address Organization Details Last Updated DateTime 4 170.18 cm 41.5 kg/m2 742850. 98 g 78 /min 97 % 97 % 122 mm[Hg] 86 mm[Hg] Eugenia Gonzalez Queta [facility] [employer] [facility] 4 15:40:50 Social History Question Answer Notes LastModified by Organizat ion Details LastModified Time Tobacco Smoking Status Never Smoker Not Available [employer] 04/30/2022 00:42:31 Do You Have An Advance Directive? No MIGRATION.99100 59297 Information not available 04/30/2022 What Is Your Level Of Alcohol Consumption? None MIGRATION.45460 33734 Information not available 04/30/2022 What Is Your Level Of Caffeine Consumption? Heavy MIGRATION.92161 17917 Information not available 04/30/2022 How Much Tobacco Do You Chew? None MIGRATION.86523 89080 Information not available 04/30/2022 In The 14 Days Before Symptom Onset, Have You Had Close Contact With A Laboratory-confi rmed COVID-19 While That Case Was Ill? No MIGRATION.80271 11739 Information not available 04/30/2022 In The 14 Days Before Symptom Onset, Have You Had Close Contact With A Person Who Is Under Investigation For COVID-19 While That Person Was Ill? No MIGRATION.71927 78958 Information not available 04/30/2022 What Type Of Diet Are You Following? REGULAR No Meat [email or web address] Information not available 05/09/2022 Which Illicit Or Recreational Drugs Have You Used? None MIGRATION.77971 41726 Information not available 04/30/2022 What Is The Highest Grade Or Level Of School You Have Completed Or The Highest Degree You Have Received? [id number] MIGRATION.60162 42409 Information not available 04/30/2022 Do You Have An Electrostatic Air Filter? No Information not available 05/05/2022 What Is Your Occupation? [employer] MIGRATION.52608 76339 Information not available 04/30/2022 Have There Been Any Changes To Your Family Or Social Situation? No MIGRATION.88293 38563 Information not available 04/30/2022 What Is The Fluoride Status Of Your Home? Unknown MIGRATION.83869 84877 Information not available 04/30/2022 Are There Any Guns Present In Your Home? Yes MIGRATION.47349 22901 Information not available 04/30/2022 Do You Have A Humidifier? Yes Information not available 05/05/2022 Do You Use Insect Repellent Routinely? No MIGRATION.47947 60913 Information not available 04/30/2022 Where Do You Live? [place] MIGRATION.81878 02930 Information not available 04/30/2022 Do You Have A Medical Power Of Aerial Installer? No MIGRATION.79713 24799 Information not available 04/30/2022 Do You Have Moisture Problems In Your Home? No Information not available 05/05/2022 What Was The Date Of Your Most Recent Tobacco Screening? 05/09/2022 [email or web address] Information not available 05/09/2022 Do You Have Any Pets? No MIGRATION.04051 76841 Information not available 04/30/2022 What Is Your Relationship Status? MIGRATION.60643 37592 Information not available 04/30/2022 Do You Use Your Seat Belt Or Car Seat Routinely? Yes MIGRATION.09708 70403 Information not available 04/30/2022 Do You Have Smoke And Carbon Monoxide Detectors In Your Home? Yes MIGRATION.19017 87693 Information not available 04/30/2022 Are You Passively Exposed To Smoke? No MIGRATION.51525 36722 Information not available 04/30/2022 Are There Any Smokers In Your House? No MIGRATION.86896 78231 Information not available 04/30/2022 What Types Of Sporting Activities Do You Participate In? None MIGRATION.51542 76135 Information not available 04/30/2022 Do You Feel Stressed (tense, Restless, Nervous, Or Anxious, Or Unable To Sleep At Night)? [id number] MIGRATION.95117 64497 Information not available 04/30/2022 Do You Use Any Illicit Or Recreational Drugs? No MIGRATION.16834 87986 Information not available 04/30/2022 Do You Use Sunscreen Routinely? Yes MIGRATION.87863 80337 Information not available 04/30/2022 Has Tobacco Cessation Counseling Been Provided? No Not Needed-ne kamar Smoked MIGRATION.56181 70240 Information not available 04/30/2022 Have You Recently Traveled Abroad? No MIGRATION.24981 21297 Information not available 04/30/2022 Do You Have Any Dietary Restrictions? No MIGRATION.13431 84911 Information not available 04/30/2022 Do You Or Have You Ever Used Any Other Forms Of Tobacco Or Nicotine? No MIGRATION.15907 07976 Information not available 04/30/2022 Sex: Female Functional Status Question Answer Note LastModified by Organizat ion Details LastModified Time What is your exercise level? Occasional MIGRATION.[id number] 26 Information not available 04/30/2022 Mental Status None recorded. Family History Relationship Description Onset Age of this Age Resolved Age Notes LastModified by Organization Details LastModified Time Maternal Grandmother Malignant tumor of breast MIGRATION.720 [id number] Not available 04/30/2022 00:42:50 Sister History of thyroid disorder MIGRATION.430 [id number] Not available 04/30/2022 00:42:50 Sister Asthma MIGRATION.519 [id number] Not available 04/30/2022 00:42:50 Mother History of thyroid disorder MIGRATION.408 2987215 Not available 04/30/2022 00:42:50 Mother Chronic lymphoid leukemia, disease MIGRATION.735 [id number] Not available 04/30/2022 00:42:50 Maternal Aunt History of thyroid disorder MIGRATION.623 [id number] Not available 04/30/2022 00:42:50 Son Asthma MIGRATION.525 4170036 Not available 04/30/2022 00:42:50 Son Eczema MIGRATION.125 [id number] Not available 04/30/2022 00:42:51 Father Chronic obstructive pulmonary disease MIGRATION.860 [id number] Not available 04/30/2022 00:42:51 Unspecified Relation Complication of anesthesia [email or web address] Not available 07/2022 11:49:05 Mother Family history of malignant neoplasm [email or web address] Not available 07/2022 11:49:25 Notes:11 yr old with allergy sx on zyrtec and allergy to dairy but no chest problems, eczma; 18 yr son 2 asthma attacks requiring ER visits but outgrew it throid Medical History Condition Response NERVE DISEASE N BLINDNESS N RHEUMATIC FEVER N KIDNEY STONES N BLADDER PROBLEMS N MRSA N OTHER # 1 N POLIO N LUNG DISEASE/DISORDER Y RADIATION / CHEMOTHERAPY N COPD N Other # 2 N BLOOD DISEASES N SURGERY N EAR OR HEARING PROBLEMS N MUMPS N SHINGLES N DEPRESSION (INCLUDING POST ) N BOWEL PROBLEMS N STROKE/TIA N THYROID DISEASE Y ULCERS N BENIGN PROSTATIC HYPERPLASIA N MEASLES N HYPOTENSION N MYOCARDIAL INFARCTION N OBESITY Y GERD/NAUSEA N EXCESSIVE PERSPIRATION N ANEURYSM N URINARY/BLADDER/KIDNEY PROBLEMS N CORONARY ARTERY DISEASE (CAD) N ADDICTION CONCERNS N Impotence N ENDOMETRIOSIS N USE OF BLOOD THINNERS N SKIN PROBLEMS N GASTROINTESTINAL DISORDER N PARATHYROID DISEASE N PERIPHERAL VASCULAR DISEASE N MUSCLE,JOINT OR BONE PROBLEMS N GASTROINTESTINAL BLEEDING N BLOOD CLOTS N ASTHMA Y CATARACTS N USE OF NSAIDS Y ERECTILE DYSFUNCTION N VARICOSITIES N GI PROBLEMS Y Low Testosterone N INFERTILITY N AIDS/HIV N CHEMOTHERAPY / RADIATION N LIVER DISEASE N MALE HYPOGONADISM N HYPERTENSION N Deficiency N TOURETTE'S N ANXIETY DISORDER N BLOOD TRANSFUSION N ANEMIA/BLOOD DISORDER N CHRONIC EAR INFECTIONS N BRONCHITIS Y TUBERCULOSIS N GLAUCOMA N FOOT PROBLEM N DIVERTICULITIS N SLEEP APNEA N CHICKENPOX N INFECTIOUS DISEASE N PROSTATE N HEART ARRHYTHMIA N INSOMNIA N HIGH CHOLESTEROL / HYPERLIPIDEMIA Y HYPERTHYROIDISM N EYE PROBLEMS Y NEUROLOGICAL PROBLEMS N EDEMA N CHRONIC PAIN SYNDROME N HYPOTHYROIDISM Y CONSTIPATION N CAROTID BLOCKAGE N BACK / NECK PROBLEMS N ATHEROSCLEROSIS N BREAST PROBLEMS N DIALYSIS N ECZEMA N OSTEOPOROSIS N ARTHRITIS Y APPENDICITIS N DIABETES, TYPE N BAD TEETH N ENT N HEARTBURN / REFLUX N AUTISM SPECTRUM DISORDER (ASD) N HEPATITIS / LIVER DISEASE N GOUT N SLEEP DISORDER N ALZHEIMER'S DISEASE N Brain Problems N HERPES N DEMENTIA N RETINOPATHY N SEIZURES/EPILEPSY N HEADACHES/MIGRAINES Y VASCULAR DISEASE N PACEMAKER N Blood Disorder N DIZZINESS N KIDNEY DISEASE N HEART DISEASE/HEART PROBLEMS Y MULTIPLE SCLEROSIS N CARDIAC ARRHYTHMIA N CANCER: SPECIFY N Gall Stones N ATRIAL FIBRILLATION N PULMONARY EMBOLISM N AUTOIMMUNE DISEASE Y Gynecological HistoryNo gynecological history recorded. Obstetrics History GPAL:G 0 P 0 0 0 0 Immunizations Vaccine Type Date Status Note Provider Nam e and Address Organization Details Recorded Time COVID-19, mRNA, LNP-S, PF, 30 mcg/0.3 mL dose 03/09/2020 completed Not Available [facility] 4 10:25:06 COVID-19, mRNA, LNP-S, PF, 30 mcg/0.3 mL dose 02/17/2020 completed Not Available [facility] 4 10:25:06 Influenza, split virus, quadrivalent, PF 11/30/2012 completed Not Available [facility] 4 10:25:06 Past Encounters Encounter ID Performer Location Encounter Start Date Encounter Closed Date Diagnosis/Indication Diagnosis SNOMED-CT Code Diagnosis ICD10 Code Diagnosis Note [id number] [facility] [place] [address] [place] [address] 05/01/2020 00:00:00 05/02/2020 09:15:25 [id number] [facility] [place] [address] [place] [address] 05/02/2020 00:00:00 05/02/2020 17:31:02 [id number] [facility] [address] [place] [address] 05/16/2020 00:00:00 05/16/2020 16:17:50 [id number] [facility] [address] [place] [address] 06/06/2020 00:00:00 06/06/2020 16:58:05 [id number] _ATHENA_M IGRATION_ DEFAULT_1 _1 , 06/07/2020 00:00:00 06/07/2020 14:55:17 [id number] [facility] [address] [place] [address] 07/18/2020 00:00:00 07/18/2020 16:17:03 [id number] [facility] General Surgery [address] [address] 10/16/2020 00:00:00 10/16/2020 14:15:55 [id number] [facility] General Surgery [address] [address] 10/25/2020 00:00:00 10/25/2020 14:35:18 [id number] [facility] General Surgery [address] [address] 11/06/2020 00:00:00 11/06/2020 11:32:40 [id number] [facility] Internal Med [facility] [address] [place] [address] Ave[address] [address] 11/19/2020 00:00:00 12/02/2020 16:24:55 [id number] _ATHENA_M IGRATION_ DEFAULT_1 _1 , 12/27/2020 00:00:00 12/27/2020 16:58:16 [id number] [facility] Internal [facility] [place] [address] [facility] [place] [address] 03/07/2021 00:00:00 03/07/2021 21:26:13 [id number] [facility]mon[facility] [address] [place] [address] 03/13/2021 00:00:00 04/15/2021 15:25:25 [id number] [facility] Internal Med [address], [address] [address] 03/25/2021 00:00:00 03/25/2021 21:06:57 [id number] [facility] [address] [place] [address] 04/22/2021 00:00:00 04/24/2021 14:53:34 [id number] [facility] Internal Med [address], [address] [address] 07/02/2021 00:00:00 07/21/2021 16:38:29 [id number] [facility] [address] [place] [address] 07/18/2021 00:00:00 08/06/2021 16:18:11 [id number] [facility] Internal Med [address], [address] [address] 08/05/2021 00:00:00 09/29/2021 22:44:57 [id number] _ATHENA_M IGRATION_ DEFAULT_1 _1 , 11/08/2021 00:00:00 11/08/2021 12:40:36 [id number] [facility] Internal Med [address], [address] [address] 12/16/2021 00:00:00 12/16/2021 21:44:28 [id number] [facility] Internal Med [address], [address] [address] 03/31/2022 00:00:00 04/14/2022 22:09:26 [id number] [facility] Internal Med [address], [address] [address] 04/11/2022 00:00:00 04/11/2022 11:57:42 [id number] Dung Hudson MD [facility] Pulmonolo gy [place] [address] [facility], [facility] [address] [place] [address] 05/05/2022 13:45:42 05/06/2022 09:02:44 Posterior rhinorrhea 44602351 R09.82 Mild persi stent asthma 334269565 J45.30 [id number] Marcial Valiente MD [facility] Internal Med [facility] [address] [facility], [facility] 15 [place] [address] 05/09/2022 09:43:16 05/09/2022 10:24:05 Obesity 296380333 E66.9 [id number] Adriel Shaw MD [facility] Ortho [place] [address] [place] [address] 11/05/2022 11:30:33 11/05/2022 12:15:58 Bilateral wrist pain 1758912240 7007171 M25.531 M25.316 [id number] Rodolfo House DPM [facility] Podiatry [place] [address] [place] [address] 11/27/2022 11:43:21 11/27/2022 12:10:54 Closed fracture proximal phalanx, toe 959384685 S92.911A x-rays reviewedri ce therapyno strenuous activities continue postop shoerecomm end makenna tapingfoll ow-up in 4 weeks for repeat x-rays [id number] Rodolfo House DPM [facility] Podiatry [place] [address] [facility], [facility] 4 [place] [address] 12/30/2022 10:42:35 12/30/2022 12:05:28 Closed fracture proximal phalanx, toe 733534886 S92.911A x-rays reviewed- Healing fracture 5th phalanx proximal with callus formationr ice therapyno strenuous activities continue postop shoerecomm end makenna tapingfoll ow-up in 4 weeks for repeat x-rays [id number] Katherine Casiano MD [facility] General Surgery [address] [facility], [address] [place] [address] 2023 15:33:59 2023 16:59:07 Left lower quadrant pain 706175305 R10.32 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 3029 [address]7916 K22.70 Health Concerns Section Related Observation LastModified by Organization Detai ls LastModified Time None Recorded Concern Status LastModified by Organization Details LastModified Time None Recorded Advance Directives Directive N: Payers Encounter Date Sequence Insurance Name Policy Number Policy Alcaraz Covered Member ID Alcaraz Member ID Guarantor Name 05/09/2022 1 [place] [id number] Vamshi C Michelle [id number] Amber M Michelle 11/05/2022 CCMSI Amber Gio Michelle Amber M Michelle 11/27/2022 1 [place] [id number] Vamshi C Michelle [id number] Amber M Michelle 12/30/2022 1 [place] [id number] Vamshi C Michelle [id number] Amber M Michelle 2023 1 [place] [id number] Vamshi C Michelle [id number] Amber M Michelle Notes Date Note Type Note Provider Name and Address Organization Details Recorded Time 05/09/2022 text/html Phentermine follow-up. 2 lb weight loss. No side effects. Marcial Valiente MD [address], [facility] [address], [place], [address], [facility] 05/09/2022 10:36:58 11/27/2022 text/html . Patient is a 52-year-old female who presents the office with complaints of pain to her right 5th toe. Patient states that she stubbed her toe on a heavy briefcase that her had. Patient states that she had significant pain swelling and bruising of the lateral foot. Patient states she was seen at the emergency room and had x-rays which she was found to have a nondisplaced fracture of the proximal phalanx and was given a postop shoe. Rodolfo House DPM [address], [facility] [address], [place], [address], [employer] [facility] [employer] [facility] 11/27/2022 12:05:11 12/30/2022 text/html . Patient is a 52-year-old female who returns the office for follow-up on proximal phalanx fracture the right 5th toe. Patient states she has discontinued wearing the postop shoe. Patient states she is no longer having any pain. Patient had repeat x-rays which shows consolidation with callus formation of the fracture. Patient still has on a small amount of healing still. Patient denies any other complaints. Rodolfo House DPM [address], [facility] [address], [place], [address], [employer] [facility] [employer] 12/30/2022 11:47:58 2023 text/html AMBER WAS SE EN IN THE OFFICE TODAY FOR EVALUATION . PT HAS A HX/O OF GERD /BE . SHE DENIES ABD PAIN /WT LOSS /BLEEDING .PT IS C/O LLQ PAIN . SX ARE SHARP, INCREASED WITH COUGHING AND DECREASED WITH STANDING . SX ARE RELATED TO MEALS . PT IS S/P LAP JOSELINE AND REPORTS DIARRHEA . Katherine Casiano MD [address], [address], [place], [address], [employer] [facility] [employer] 2023 16:05:30 OBGyn Episode No OBEpisode recorded.
--- OUTSIDE RECORDS SUMMARY | 2024-04-11 16:14 | XMS_ITS | Encounter Summary ---
Author Organization [facility] Facility Care Team Providers Care Psychological Anthropologist Name Role Phone Son Jeronimo MD Primary Care Provider [phone] Ben Amaral Primary Care Provider [phone] Katherine Page DO Primary Care Provider [phone] Dung Hudson MD Unavailable Thuan Og MD Unavailable [phone] Hernan Ibarra MD Primary Care Provider Encounter Details Date Type Department Care Team (Latest Contact Info) Description 06/18/2017 Orders Only [facility] ProviderSandra MD [address] [place] [address] Social History Tobacco Use Types Packs/Day Years Used Date Smoking Tobacco: Never Assessed Comments Unknown Sex and Gender Information Value Date Recorded Sex Assigned at Not on file Legal Sex Female 11:58 PM SHIPPING TRACK SUPERVISOR Gender Identity Female 07/27/2018 12:12 PM CDT Sexual Orientation Not on file documented as of this encounter Plan of Treatment Upcoming Encounters Date Type Department Care Team (Late st Contact Info) Description 04/12/2024 12:00 PM SHIPPING TRACK SUPERVISOR Hospital Encounter [address] [place] [address] Vivek Mcintosh MD [address] [facility] [address] [place] [address] 04/12/2024 12:00 PM SHIPPING TRACK SUPERVISOR - 04/12/2024 12:30 PM SHIPPING TRACK SUPERVISOR Surgery [facility] 1 [place] [address] Vivek Mcintosh MD [address] [facility] [address] [place] [address] COLONOSCOPY Scheduled Procedures Name Priority Associated Diagnoses Date/Ti me COLONOSCOPY LUQ pain Encounter for screening colonoscopy Gastroesophageal reflux disease, unspecified whether esophagitis present History of Larsen's esophagus Dyspepsia History of Helicobacter pylori infection 04/12/2024 12:00 PM SHIPPING TRACK SUPERVISOR ESOPHAGOGASTRODUODENOSCOPY LUQ pain Encounter for screening colonoscopy Gastroesophageal reflux disease, unspecified whether esophagitis present History of Larsen's esophagus Dyspepsia History of Helicobacter pylori infection 04/12/2024 12:00 PM SHIPPING TRACK SUPERVISOR documented as of this encounter Procedures Procedure Name Priority Date/Time Associated Diagnosis Comments SCAN - LABS 06/19/2017 12:00 AM CDT SCAN - LABS 06/19/2017 12:00 AM CDT SCAN - LABS 06/19/2017 12:00 AM CDT documented in this encounter Results * SCAN - LABS (06/19/2017 12:00 AM CDT) Narrative 06/19/2017 12:00 AM CDT Ordered by an unspecified provider. us Historical Provider Final Res ult * SCAN - LABS (06/19/2017 12:00 AM CDT) Narrative 06/19/2017 12:00 AM CDT Ordered by an unspecified provider. us Historical Provider Final Res ult * SCAN - LABS (06/19/2017 12:00 AM CDT) Narrative 06/19/2017 12:00 AM CDT Ordered by an unspecified provider. us Historical Provider Final Res ult documented in this encounter Visit Diagnoses Not on filedocumented in this encounter Care Teams Psychological Anthropologist Relationship Specialty Start Date End Date Son Jeronimo MD PCP - General Family Medicine 07/27/18 11/26/21 Ben Amaral PA PCP - General Family Medicine 11/27/21 10/15/22 Katherine Page DO [address] [facility] [address] [address] PCP - General Family Medicine 10/16/22 06/29/23 Hernan Ibarra MD [address] [place] [address] PCP - General Family Medicine 06/30/23 [place] [address] [place] [address] Pulmonary Disease 10/16/22 Thuan Og MD [address] [place] [address] Referring Physician Obstetrics and Gynecology 10/16/22 documented as of this encounter
--- OUTSIDE RECORDS SUMMARY | 2024-04-11 16:14 | XMS_ITS | Encounter Summary ---
Author Organization [facility] Facility Care Team Providers Care Vocational Education Teacher Name Role Phone Son Jeronimo MD Primary Care Provider [phone] Ben Amaral Primary Care Provider [phone] Katherine Page DO Primary Care Provider [phone] uDng Hudson MD Unavailable Thuan Og MD Unavailable [phone] Hernan Ibarra MD Primary Care Provider Encounter Details Date Type Department Care Team (Latest Contact Info) Description 10/21/2016 Orders Only [facility] CLINCONV ProviderSandra MD [address] [place] [address] Social History Tobacco Use Types Packs/Day Years Used Date Smoking Tobacco: Never Assessed Comments Unknown Sex and Gender Information Value Date Recorded Sex Assigned at Not on file Legal Sex Female 11:58 PM ORGANIC CHEMISTRY TEACHER Gender Identity Female 07/27/2018 12:12 PM CDT Sexual Orientation Not on file documented as of this encounter Plan of Treatment Upcoming Encounters Date Type Department Care Team (Late st Contact Info) Description 04/12/2024 12:00 PM ORGANIC CHEMISTRY TEACHER Hospital Encounter [address] [place] [address] Vivek Mcintosh MD [address] [facility] [address] [place] [address] 04/12/2024 12:00 PM ORGANIC CHEMISTRY TEACHER - 04/12/2024 12:30 PM ORGANIC CHEMISTRY TEACHER Surgery [facility] 1 [place] [address] Vivek Mcintosh MD [address] [facility] [address] [place] [address] COLONOSCOPY Scheduled Procedures Name Priority Associated Diagnoses Date/Ti me COLONOSCOPY LUQ pain Encounter for screening colonoscopy Gastroesophageal reflux disease, unspecified whether esophagitis present History of Larsen's esophagus Dyspepsia History of Helicobacter pylori infection 04/12/2024 12:00 PM ORGANIC CHEMISTRY TEACHER ESOPHAGOGASTRODUODENOSCOPY LUQ pain Encounter for screening colonoscopy Gastroesophageal reflux disease, unspecified whether esophagitis present History of Larsen's esophagus Dyspepsia History of Helicobacter pylori infection 04/12/2024 12:00 PM ORGANIC CHEMISTRY TEACHER documented as of this encounter Procedures Procedure Name Priority Date/Time Associated Diagnosis Comments SCAN - LABS 10/22/2016 12:00 AM CDT documented in this encounter Results * SCAN - LABS (10/22/2016 12:00 AM CDT) Narrative 10/22/2016 12:00 AM CDT Ordered by an unspecified provider. Historical Provider Final Res ult documented in this encounter Visit Diagnoses Not on filedocumented in this encounter Care Teams Vocational Education Teacher Relationship Specialty Start Date End Date Son Jeronimo MD PCP - General Family Medicine 07/27/18 11/26/21 Ben Amaral PA PCP - General Family Medicine 11/27/21 10/15/22 Katherine Page DO [address] [facility] [address] [address] PCP - General Family Medicine 10/16/22 06/29/23 Hernan Ibarra MD [address] [place] [address] PCP - General Family Medicine 06/30/23 Dung Hudson MD [address] [address] Pulmonary Disease 10/16/22 Thuan Og MD [address] [place] [address] Referring Physician Obstetrics and Gynecology 10/16/22 documented as of this encounter
--- OUTSIDE RECORDS SUMMARY | 2024-04-11 16:15 | XMS_ITS | Encounter Summary ---
Author Organization [facility] Facility Care Team Providers Care General Manager Road Production Name Role Phone Son Jeronimo MD Primary Care Provider [phone] Ben Amaral Primary Care Provider [phone] Katherine Page DO Primary Care Provider [phone] Dung Hudson MD Unavailable Thuan Og MD Unavailable [phone] Hernan Ibarra MD Primary Care Provider [phone] Encounter Details Date Type Department Care Team (Latest Contact Info) Description 06/28/2015 Orders Only [facility] CLINCONV ProviderSandra MD [address] [place] [id number] Social History Tobacco Use Types Packs/Day Years Used Date Smoking Tobacco: Never Assessed Comments Unknown Sex and Gender Information Value Date Recorded Sex Assigned at Not on file Legal Sex Female 11:58 PM ORAL AND MAXILLOFACIAL PATHOLOGIST Gender Identity Female 07/27/2018 12:12 PM CDT Sexual Orientation Not on file documented as of this encounter Plan of Treatment Upcoming Encounters Date Type Department Care Team (Late st Contact Info) Description 04/12/2024 12:00 PM ORAL AND MAXILLOFACIAL PATHOLOGIST Hospital Encounter [address] [place] [address] Vivek Mcintosh MD [address] [facility] [facility] [address] [place] [address] 04/12/2024 12:00 PM ORAL AND MAXILLOFACIAL PATHOLOGIST - 04/12/2024 12:30 PM ORAL AND MAXILLOFACIAL PATHOLOGIST Surgery [facility] [address] [place] [address] Vivek Mcintosh MD [address] [facility] [facility] [address] [place] [address] COLONOSCOPY Scheduled Procedures Name Priority Associated Diagnoses Date/Ti me COLONOSCOPY LUQ pain Encounter for screening colonoscopy Gastroesophageal reflux disease, unspecified whether esophagitis present History of Larsen's esophagus Dyspepsia History of Helicobacter pylori infection 04/12/2024 12:00 PM ORAL AND MAXILLOFACIAL PATHOLOGIST ESOPHAGOGASTRODUODENOSCOPY LUQ pain Encounter for screening colonoscopy Gastroesophageal reflux disease, unspecified whether esophagitis present History of Larsen's esophagus Dyspepsia History of Helicobacter pylori infection 04/12/2024 12:00 PM ORAL AND MAXILLOFACIAL PATHOLOGIST documented as of this encounter Procedures Procedure Name Priority Date/Time Associated Diagnosis Comments SCAN - LABS 06/28/2015 12:00 AM CDT documented in this encounter Results * SCAN - LABS (06/28/2015 12:00 AM CDT) Narrative 06/28/2015 12:00 AM CDT Ordered by an unspecified provider. Historical Provider Final Res ult documented in this encounter Visit Diagnoses Not on filedocumented in this encounter Care Teams General Manager Road Production Relationship Specialty Start Date End Date Son Jeronimo MD PCP - General Family Medicine 07/27/18 11/26/21 Ben Amaral PA PCP - General Family Medicine 11/27/21 10/15/22 Katherine Page DO [address] [facility] [facility] [address] [address] PCP - General Family Medicine 10/16/22 06/29/23 Hernan Ibarra MD [address] [place] [address] PCP - General Family Medicine 06/30/23 Dung Hudson MD [address] [address] Pulmonary Disease 10/16/22 Thuan Og MD [address] [place] [address] Referring Physician Obstetrics and Gynecology 10/16/22 documented as of this encounter
--- OUTSIDE RECORDS SUMMARY | 2024-04-11 16:15 | XMS_ITS | CONTINUITY OF CARE DOCUMENT ---
Author Name butch rae Address Unknown Organization [facility] Address [id number] [place] [address] [address] [place] [address] Phone [phone] Care Team Providers Care Button Grader Name Role Phone Ralf Sykes MD Unavailable [phone] MARIO MARTINES MD Unavailable MARIO MARTINES MD Unavailable [phone] PROBLEMS Condition Status Date Provider Notes Other symptoms involving cardiovascular system active Kaley Paredes MD Mitral regurgitation active Kaley can MD trace Asthma active Kaley Paredes MD Mitral valve prolapse active Kaley denton MD Subtle- posterior leaflet ENCOUNTERS Date Type Provider Location Encounter Diag nosis - In-person encounter Office Visit Kaley Paredes MD [place] Other symptoms involving cardiovascular systemMitral valve prolapseMitral regurgitationAsthma VITAL SIGNS Date Observation Value Provider Body Mass Index (Ratio) 35.17 kg/m2 Manoj Paredes MD blood pressure, resting No Joanna Almaguer blood pressure, diastolic 89 mm[Hg] Chris Almaguer blood pressure, systolic 129 mm[Hg] Yamileth Almaguer oxygen saturation, oximetry 98 % Volodymyr Almaguer respiratory rate E&M 18 /min Sun Almaguer pulse rate 79 /min Volodymyr ash weight E&M 224.6 [lb_av] Volodymyr colmenares height E&M 67 [in_i] Volodymyr Santos nson ALLERGIES Allergy Name Onset Date Reaction Criticality Status ERYTHROMYCIN High Criticality active SULFA High Criticality active HISTORY OF MEDICATION USE Medication Status Instructions Dates Provider Indications Com ments TOPROL XL 25 MG ORAL TABLET EXTENDED RELEASE 24 HOUR active ONE TAB DAILY 8 Kaley Paredes MD Stop Bystolic. Do not take with Toprol XL. Toprol replaces Bystolic. MAXALT TABLET active as needed Volodymyr Almaguer BIOTIN 5000 CAPSULE active once daily Volodymyr Almaguer SYMBICORT AEROSOL active twice daily Kristyn Almaguer ALBUTEROL SULFATE POWDER active as needed Volodymyr Almaguer CALCIUM + D3 600-200 MG-UNIT ORAL TABLET active ONE TAB BY MOUTH DAILY Volodymyr Almaguer MULTIVITAMINS ORAL CAPSULE active ONE TAB. DAILY Volodymyr Almaguer EVENING PRIMROSE OIL active once daily Volodymyr Almaguer ARMOUR THYROID 90 MG ORAL TABLET active once dialy Volodymyr Almaguer OMEPRAZOLE 40 MG ORAL CAPSULE DELAYED RELEASE active once daily Volodymyr Almaguer CLARITIN CAPSULE active once daily 8 Volodymyr Almaguer SINGULAIR 10 MG ORAL TABLET active one tab. daily Volodymyr Almaguer SOCIAL HISTORY Date Observation Value Provider number of grandchildren Kaley Paredse MD social history E&M S moking History: Brian cano has never smoked. Kaley Paredes MD social history reviewed E&M revi ewed - no changes required Kaley Paredes MD smoking status Never smoker Volodymyr Ste simoneedgar FAMILY HISTORY Family Member Condition Father Family History of Co ronary Artery Disease: INSURANCE PROVIDERS Payer name Policy type / Coverage type [place] [employer] ID [facility] [id number] ADVANCE DIRECTIVES Name Date DISCUSSED - NO DECISION MADE TREATMENT PLAN Date Name Performer Cardiology:Sees pulmonary. Love Paredes MD Cardiology:Sees pulmoanry. Love Paredes MD Cardiology:Sxs may b e in general related to her abnormal valve. SOB is related to ashtma. Kaley Paredes MD Cardiology:Likely re lated to abnormal mitral valve. Doubt this is related to BP issues. Kaley Paredes MD Cardiology:Very subt le seen on echo. Has some symptoms while on Bystolic. Will switch to Toprol XL and see if there is any improvement in her sxs. Kaley Paredes MD Date Name Holter Monitor 24 Hr HISTORY OF PROCEDURES Procedure Date Procedure Name Provider Procedure Notes S tatus ZIO Holter Hookup Kaley denton MD completed EKG Kaley Paredes MD completed SNOMED-CT: [id number] Current Medications Documented Kaley Paredes MD completed
--- OUTSIDE RECORDS SUMMARY | 2024-04-11 16:15 | XMS_ITS | Clinical Summary ---
Author Organization [address] Address [address] [place] [id number] Care Team Providers Care Registered Occupational Therapist Name Role Phone Dung Hudson MD Unavailable Thuan Og MD Unavailable [phone] Hernan Ibarra MD Primary Care Provider [phone] Allergies Active Allergy Reactions Criticality Noted Date Comments Adhesive Rash Medium 07/27/2018 Adhesive Tape-Silicones Hives Medium 02/24/2023 Celecoxib Unknown 07/15/2018 tingly lips Erythromycin Stomach upset Low 07/15/2018 stomach pain Ibuprofen Stomach upset Low 07/15/2018 stomach pain Latex Itching Low 07/27/2018 Latex, Natural Rubber Hives Medium 02/24/2023 Nsaids (Non-Steroidal Anti-Inflammatory Drug) Other (See comments) Low 02/24/2023 Caribou Oil Vomiting Low 09/13/2020 Feels weird Sulfa (Sulfonamide Antibiotics) Unknown,Rash Medium 07/15/2018 tingly lips Medications dicyclomine (BENTYL) 10 mg capsule 1 capsule (10 mg total) 4 (four) times a day 017 Active EVENING PRIMROSE OIL ORAL 1,000 mg daily Activ e calcium carbonate-vitamin D3 (CALCIUM+D) 400-133.3 mg-unit tablet 2 (two) times a day Active ipratropium-albuterol (DUO-NEB) 0.5-2.5 mg/3 mL nebulizer solutionIndications:Chr onic Obstructive Pulmonary Disease with Bronchospasms Take 3 mL by nebulization 4 (four) times a day as needed for wheezing or shortness of breath 360 mL 11 019 Active montelukast (SINGULAIR) 10 mg tablet TAKE ONE TABLET DAILY AT BEDTIME 30 tablet 5 020 Active albuterol HFA (PROVENTIL HFA,VENTOLIN HFA,PROAIR HFA) 90 mcg/actuation inhaler Inhale 2 puffs every 4 (four) hours as needed for wheezing 1 Inhaler 4 Active EPINEPHrine (EpiPen 2-Jeremy) 0.3 mg/0.3 mL auto-injection syringe Inject 0.3 mL (0.3 mg total) into the muscle as instructed as needed for anaphylaxis 2 Syringe 1 Active ondansetron (ZOFRAN) 4 mg tablet TAKE 1 TABLET(4 MG) BY MOUTH EVERY 8 HOURS NEEDED FOR NAUSEA OR VOMITING 20 tablet 021 Active levocetirizine (XYZAL) 5 mg tablet Take 1 tablet (5 mg total) by mouth every evening Active nebivoloL (Bystolic) 5 mg tabletIndications:Sravani l valve prolapse Take 1 tablet (5 mg total) by mouth daily 90 tablet 1 023 Active rizatriptan SUPERVISOR TAN ROOM (MAXALT-SUPERVISOR TAN ROOM) 10 mg disintegrating tabletIndications:Moder ate persistent asthma without complication DISSOLVE 1 TABLET ON THE TONGUE AT ONSET OF HEADACHE. REPEAT IN 2 HOURS NEEDED UP TO. MAXIMUM OF 3 TABLETS IN 24 HOURS 9 tablet 5 023 Active ipratropium (ATROVENT) 42 mcg (0.06 %) nasal spray Administer 2 sprays into each nostril 2 (two) times a day Active simethicone (GAS-X) 125 mg capsule Take one pill up to 4 times daily as needed for problematic cramping, bloating, gas, or nausea issues. 120 capsule 3 024 Active rosuvastatin (CRESTOR) 10 mg tabletIndications:Pure hypercholesterolemia TAKE 1 TABLET(10 MG) BY MOUTH EVERY NIGHT 90 [address] (PROTONIX) 40 mg EC tablet Take 1 tablet (40 mg total) by mouth 2 (two) times a day 60 tablet 3 Active djvsgirjagc-rnnmdlkgl-b ilanter (Trelegy Ellipta) 200-62.5-25 mcg inhaler Inhale 1 puff daily 30 each 11 Active testosterone (TESTOPEL) 75 mg pellet Inject under the skin once 162.5 mg Active progesterone (PROMETRIUM) 100 mg capsule Take 225 mg by mouth daily Active estrogen,montana/me-testo sterone (ESTROGENS-METHYLTESTOS TERONE ORAL) Take by mouth Act stevenson Active Problems Problem Noted Date Diagnosed Date Multinodular goiter 12/31/2023 Assessment & Plan (12/31/2023 9:07 AM CDT): History of multinodular goiter diagnosed over many years Patient had FNA biopsies done in the past No reports available to review Reviewed patient's recent thyroid ultrasound report Noted bilateral thyroid nodules mostly subcentimeter No compressive symptoms Recent thyroid function tests are normal Recommend no thyroid medication at this time We will try to obtain patient previous thyroid ultrasound reports and FNA cytology reports from [facility] Follow-up in 1 year for a repeat thyroid ultrasound History of Larsen's esophagus 05/04/2023 LUQ pain 05/04/2023 Encounter for screening colonoscopy 05/04/2023 Dyspepsia 05/04/2023 History of Helicobacter pylori infection Gastroesophageal reflux disease 05/04/2023 Larsen's esophagus 02/24/2023 Annual physical exam 02/24/2023 Assessment & Plan (02/24/2023 10:23 AM INDEPENDENT MARKETING CONSULTANT): -Recommended: Healthy, prudent diet. Avoiding junk food/fast food. -30 minutes of exercise most days of the week. Increase to 45 minutes for weight loss. 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 , alternative cologuard Recommended -Influenza vaccine every year up to date and documented will come back for pneumococcal vaccine when not wheezing, asthma has not flared -F/u in 1 year for Annual PE or sooner if needed -Labs done in September and were reviewed Mitral valve prolapse 10/16/2022 Assessment & Plan (02/24/2023 9:58 AM INDEPENDENT MARKETING CONSULTANT): Will refer to cardiology for current workup. She is currently on bystolic from a previous cardiology at [facility]. Over 4 years ago. Will send for eval of need of bystolic. Assessment & Plan (10/16/2022 1:28 PM CDT): Asymptomatic, continue current prescription medicine. Skin tags, multiple acquired 10/16/2022 Assessment & Plan (10/16/2022 1:30 PM CDT): Multiple skin tags in both axillas, referred to dermatology for further evaluation and management. Hyperlipidemia 03/24/2021 History of COVID-19 03/07/2020 Intractable migraine without aura and without status migrainosus 07/04/2019 Assessment & Plan (10/16/2022 1:25 PM CDT): Stable. Cont. Current prescription medications, Maxalt. Assessment & Plan (07/04/2019 10:06 AM CDT): Start topamax migraine taper Enlarged uterus 07/27/2018 Menopausal syndrome 07/27/2018 Morbid obesity with BMI of 40.0-44.9, adult 04/2017 Assessment & Plan (04/17/2023 9:27 AM INDEPENDENT MARKETING CONSULTANT): Wt Readings from Last 3 Encounters: 04/17/23 117.2 kg (258 lb 6.4 oz) 02/24/23 116.9 kg (257 lb 11.2 oz) 10/16/22 113.9 kg (251 lb) Body mass index is 40.46 kg/m . -chronic, not at/near goal -Discussed recommendations for exercise at least 30 minutes moderate to vigorous exercise most days of the week. (minimum 150 minutes weekly) -Discussed importance of well-balanced diet. Assessment & Plan (02/24/2023 10:21 AM INDEPENDENT MARKETING CONSULTANT): BMI Follow-up includes: education provided. Assessment & Plan (10/16/2022 1:25 PM CDT): Weight reduction, daily exercise and dietary modifications recommended., as obesity can complicate their hypercholesterolemia Moderate persistent asthma without complication 08/13/2016 Assessment & Plan (02/24/2023 10:23 AM INDEPENDENT MARKETING CONSULTANT): New/worsening problems today. Acute exacerbation. Will restart steroid taper. Continue albuterol p.r.n., Breo Ellipta and DuoNeb twice a day. Referral to local drama therapist for ongoing asthma management Assessment & Plan (10/16/2022 1:25 PM CDT): At baseline, asymptomatic, followed by pulmonology. Continue current prescription medications, albuterol, Breo Ellipta, DuoNebs, Xyzal, Singulair. Assessment & Plan (07/04/2019 10:02 AM CDT): Well controlled on current regimen, no rx changes needed. Continue lifestyle modifications Provide letter for covid high risk Irritable bowel syndrome with diarrhea 7 Assessment & Plan (02/24/2023 10:24 AM INDEPENDENT MARKETING CONSULTANT): Worsening problem, has had problems with diarrhea secondary to cholecystectomy. Will try Questran 2 g t.i.d. p.r.n.. I told her she can try once daily and then titrate up as needed. She will still try to call Gastroenterology and reschedule appointment. Anxiety 05/25/2015 GERD (gastroesophageal reflux disease) 6 Assessment & Plan (10/16/2022 1:24 PM CDT): Asymptomatic. Stable. Continue current prescription medications. Assessment & Plan (09/13/2020 3:56 PM CDT): Chronic uncontrolled D/c prilosec Start nexium Start carafate Resolved Problems Problem Noted Date Diagnosed Date Resolved Date Mild persistent asthma 03/03/202202/24 Neck muscle strain 08/01/2019 Assessment & Plan (08/01/2019 12:52 PM CDT): Due to chronicity and recurrence she would benefit from use of tens unit to reduce medication need, to reduce pain, and reduce p.t. treatment. Recurrent occipital headache 08/01/2019 02/24/2023 Assessment & Plan (08/01/2019 12:51 PM CDT): Tens unit Excessive and frequent menstruation 07/27/2018 02/24/2023 Menorrhagia 07/27/2018 02/24/2023 Hemorrhoids 07/27/2018 02/24/2023 Asthmatic bronchitis with exacerbation 03/03/2018 02/24/2023 Assessment & Plan (09/13/2020 3:42 PM CDT): Chronic condition With acute exacerbation Give kenolog 80mg im Start pred taper Acquired hypothyroidism 03/30/201712/02 Assessment & Plan (10/16/2022 1:24 PM CDT): Patient has been off of medications for over 18 months. She is lost to follow-up with her product trainer. Labs ordered, will follow. Fatigue 07/04/2015 02/24/2023 Asthma 05/25/2015 10/16/2022 Assessment & Plan (08/01/2019 12:36 PM CDT): Well controlled on current regimen, no rx changes needed. Continue lifestyle modifications Assessment & Plan (03/08/2019 3:09 PM INDEPENDENT MARKETING CONSULTANT): D/c proair Start xopenex hfa inh Primary hypertension 05/25/2015 023 Overview (02/24/2023): Pt reports that she does NOT have this condition, she reports that the Bystolic is for her mitral valve prolapse. Pt wishes for this problem to be taken off of her problem list. Encounters Date Type Department Care Team Description 02/02/2024 Orders Only [facility] Diabetes and Endocrinology [address] [place] [id number] ProviderSandra MD 02/02/2024 Telephone [facility] [id number] [place] [address] [address], [place] [address] Tianna Pineda MD Lab Reports from Last 3 Months Immunizations Name Administration Dates Next Due Influenza, Quadrivalent, Spl it, Preservative Free, Intramuscular 11/30/2012 Influenza, Unspecified 12/02/2021 Pneumococcal Conjugate Pcv20 03/26/2023 ZOSTER Recombinant 03/26/2023 Surgical History Surgery Date Site/Laterality Comments SHOULDER SURGERY Right BUNIONECTOMY Left KNEE ARTHROSCOPY W/ LATERAL RELEASE 03/02/2001 - 002 CHOLECYSTECTOMY 2020 COMBINED HYSTEROSCOPY DIAGNOSTIC / D&C 10/15/2023 Medical History Medical History Date Comments Asthma Hypothyroid Anxiety GERD (gastroesophageal reflux disease) Mitral valve prolapse Arthritis Chronic bronchitis (HCC) Migraines Family History Medical History Relation Name Comments COPD Father William Thomas Heart attack Father William Thomas Kidney disease Father William Thomas Cancer Maternal Grandfather Brain tumor- at 61 Breast cancer Maternal Grandmother Breast Cancer- @ 53 Cancer Maternal Grandmother Breast Cancer- @ 53 Cancer Mother Mary Jane - Chroni c Lymphocytic Leukemia Leukemia Mother Mary Jane - Chroni c Lymphocytic Leukemia Miscarriages / Stillbirths Mother Arianna ra - Chronic Lymphocytic Leukemia Cancer Mother's Sister 1 Brain tumor- Archana Cancer Mother's Sister 2 Brain tumor- Brenda Heart attack Mother's Sister 3 Devon Heart Dis ease- Hole in heart Asthma Sister 1 Yulia Obesity Sister 1 Yulia No Known Problems Sister 2 Hypertension Son 1 Aly Basilio Jr Relation Name Status Comments Father William Thomas Alive Maternal Grandfather Brain tumor- at 61 Maternal Grandmother Breast Cancer- @ 53 Mother Mary Jane - Chronic Lymphocytic Leukemia De ceased Mother's Sister 1 Brain tumor- Archana Mother's Sister 2 Brain tumor- Brenda Mother's Sister 3 Devon Heart Disease- Hole in heart Sister 1 Yulia Alive Sister 2 Alive Son 1 Aly Basilio Jr Alive Son 2 Alive Son 3 Alive Social History Tobacco Use Types Packs/Day Years Used Date Smoking Tobacco: Never Smokeless Tobacco: Never Tobacco Cessation:Counseling Given: Not Answered Alcohol Use Standard Drinks/Week Comments Not Currently 0 (1 standard drink = 0.6 oz pur e alcohol) AUDIT-C Answer Date Recorded Q1: How often do you have a drink containing alcohol? Never 05/04/2023 Q2: How many drinks containi ng alcohol do you have on a typical day when you are drinking? Patient does not drink Q3: How often do you have si x or more drinks on one occasion? Never 05/04/2023 PHQ-2 Answer Date Recorded PHQ-2 Total Score (If total score is 3 or more points, staff should administer the PHQ-9) 0 04/17/2023 Personal Safety Answer Date Recorded Getting School Help Needed Not on file 02/10 Comments No Sex and Gender Information Value Date Recorded Sex Assigned at Not on file Legal Sex Female 11:58 PM INDEPENDENT MARKETING CONSULTANT Gender Identity Female 07/27/2018 12:12 PM CDT Sexual Orientation Not on file Obstetrics History Para Term AB IAB SAB Ectopic Multiple Livin g Live Births 3 3 3 Date Outcome GA Total Labor Labor/2nd/3rd Weight Sex Type Anes PTL Martine A1 A5 Name Clin Term Term Term Last Filed Vital Signs Vital Sign Reading Time Taken Comments Blood Pressure 120/81 12/31/2023 8:31 AM CDT Pulse 81 12/31/2023 8:31 AM CDT Temperature 36.5 C (97.7 F) 10/26/2023 10:39 AM CDT Respiratory Rate 18 12/31/2023 8:31 AM CDT Oxygen Saturation 98% 10/26/2023 10:39 AM CDT Inhaled Oxygen Concentration - - Weight 118.4 kg (261 lb) 12/31/2023 8:31 AM CDT Height 170.2 cm (5' 7 ) 12/31/2023 8:31 AM CDT Body Mass Index 40.88 12/31/2023 8:31 AM CDT Plan of Treatment Upcoming Encounters Date Type Department Care Team (Late st Contact Info) Description 04/12/2024 12:00 PM INDEPENDENT MARKETING CONSULTANT Hospital Encounter [facility] [address] [place] [id number] Vivek Mcintosh MD [address] [place] [address] 04/12/2024 12:00 PM INDEPENDENT MARKETING CONSULTANT - 04/12/2024 12:30 PM INDEPENDENT MARKETING CONSULTANT Surgery [facility] [address] [place] [address] Vivek Mcintosh MD [address] [place] [address] COLONOSCOPY Scheduled Procedures Name Priority Associated Diagnoses Date/Ti me COLONOSCOPY LUQ pain Encounter for screening colonoscopy Gastroesophageal reflux disease, unspecified whether esophagitis present History of Larsen's esophagus Dyspepsia History of Helicobacter pylori infection 04/12/2024 12:00 PM INDEPENDENT MARKETING CONSULTANT ESOPHAGOGASTRODUODENOSCOPY LUQ pain Encounter for screening colonoscopy Gastroesophageal reflux disease, unspecified whether esophagitis present History of Larsen's esophagus Dyspepsia History of Helicobacter pylori infection 04/12/2024 12:00 PM INDEPENDENT MARKETING CONSULTANT Health Maintenance Due Date Last Done Comments Cervical Cancer Screening 1972 Colon Cancer Screening-Colonoscopy 1972 Hepatitis C Screening 1972 DTaP/Tdap/Td Vaccine (1 - Tdap) 11/26/1983 Hepatitis B Screening 1990 Zoster Vaccine (2 of 2) 05/21/2023 03/26/2023 Covid-19 Vaccine (3 - 2023-2 5 season) 2023 03/09/2020, 02/17/2020 Influenza Vaccine (#1) 2023 12/02/2021, 2012 Breast Cancer Screening-Mammogram 12/04/2023 023 Regular Well Visit/Exam 18-64 02/25/2024 02/24/2023 Depression Screening 04/17/2024 04/17/2023, 02/24/2023, 10/16/2022, Additional history exists Pneumococcal vaccine <65 Completed 03/26/2023 Procedures Procedure Name Priority Date/Time Associated Diagnosis Comments SCREENING MAMMOGRAM BILATERAL W GURINDER Schedule Routine, Read Routine (OP Routine) 12/03/2022 5:18 PM CDT Screening mammogram for breast cancer from Last 3 Months or Most Recently Relevant to Health Maintenance Results * Screening Mammogram Bilateral W Gurinder (12/03/2022 5:18 PM CDT) Anatomical Region Laterality Modality Breast Bilateral Mammography 12/16/2022 10:1 5 AM CDT Impressions 12/16/2022 10:15 AM CDT There is no mammographic evidence of malignancy. A 1 year screening mammogram is recommended. BI-RADS: 1 - Negative. The patient has been or will be contacted. The patient will be entered into a reminder system with a target due date of 1 year for her next mammogram. Electronically signed by: Idania Ledezma M.D. Narrative 12/16/2022 10:15 AM CDT EXAMINATION: SCREENING MAMMOGRAM BILATERAL W GURINDER ORDERING HEALTHCARE PROVIDER: CLARISSE PAGE HISTORY: Routine screening mammography. COMPARISON: 09/07/2018 TECHNIQUE: CC and MLO views of the bilateral breasts were obtained with digital technique using breast tomosynthesis with C view. Computer aided detection was utilized. FINDINGS: DENSITY: There are scattered fibroglandular elements in the bilateral breasts. BREASTS: There are no suspicious masses, suspicious calcifications, or other suspicious findings in either breast. There has been no suspicious interval change. us Clarisse Page DO IMG MAMMO PROCEDURES Final Result from Last 3 Months or Most Recently Relevant to Health Maintenance Insurance [employer] [facility] Care Teams Registered Occupational Therapist Relationship Specialty Start Date End Date Hernan Ibarra MD [address] [place] [id number] PCP - General Family Medicine 06/30/23 Dung Hudson MD [address] [address] Pulmonary Disease 10/16/22 Thuan Og MD [address] [place] [address] Referring Physician Obstetrics and Gynecology 10/16/22
--- OUTSIDE RECORDS SUMMARY | 2024-04-11 16:15 | XMS_ITS | Referral Summary ---
Author Organization [address] Address [address] [place] [id number] Care Team Providers Care Cushion Installer Name Role Phone Dung Hudson MD Unavailable Thuan Og MD Unavailable [phone] Hernan Ibarra MD Primary Care Provider Encounters Date Type Department Care Team Description 02/02/2024 Orders Only [facility] Diabetes and Endocrinology [address] [place] [id number] ProviderSandra MD 02/02/2024 Telephone [facility] [address] [address] Tianna Pineda MD Lab Reports from Last 3 Months Allergies Active Allergy Reactions Criticality Noted Date Comments Adhesive Rash Medium 07/27/2018 Adhesive Tape-Silicones Hives Medium 02/24/2023 Celecoxib Unknown 07/15/2018 tingly lips Erythromycin Stomach upset Low 07/15/2018 stomach pain Ibuprofen Stomach upset Low 07/15/2018 stomach pain Latex Itching Low 07/27/2018 Latex, Natural Rubber Hives Medium 02/24/2023 Nsaids (Non-Steroidal Anti-Inflammatory Drug) Other (See comments) Low 02/24/2023 [place] Oil Vomiting Low 09/13/2020 Feels weird Sulfa [...] TABLET DAILY AT BEDTIME 30 tablet 5 Active albuterol HFA (PROVENTIL HFA,VENTOLIN HFA,PROAIR HFA) 90 mcg/actuation inhaler Inhale 2 puffs every 4 (four) hours as needed for wheezing 1 Inhaler 4 020 Active EPINEPHrine (EpiPen 2-Jeremy) 0.3 mg/0.3 mL auto-injection syringe Inject 0.3 mL (0.3 mg total) into the muscle as instructed as needed for anaphylaxis 2 Syringe 1 020 Active ondansetron (ZOFRAN) 4 mg tablet TAKE 1 TABLET(4 MG) BY MOUTH EVERY 8 HOURS NEEDED FOR NAUSEA OR VOMITING 20 tablet 021 Active levocetirizine (XYZAL) 5 mg tablet Take 1 tablet (5 mg total) by mouth every evening Active nebivoloL (Bystolic) 5 mg tabletIndications:Rsavani l valve prolapse Take 1 tablet (5 mg total) by mouth daily 90 tablet 1 023 Active rizatriptan COMPANY ACCOUNTANT (MAXALT-COMPANY ACCOUNTANT) 10 mg disintegrating tabletIndications:Moder ate persistent asthma [...] BY MOUTH EVERY NIGHT 90 tablet [address] (PROTONIX) 40 mg EC tablet Take 1 tablet (40 mg total) by mouth 2 (two) times a day 60 tablet 3 024 Active bxoapykpjby-wpemuvgve-o ilanter (Trelegy Ellipta) 200-62.5-25 mcg inhaler Inhale 1 puff daily 30 each 11 024 Active testosterone (TESTOPEL) 75 mg pellet Inject [...] ultrasound reports and FNA cytology reports from [facility] Follow-up in 1 year for a repeat thyroid ultrasound History of Larsen's esophagus 05/04/2023 LUQ pain 05/04/2023 Encounter for screening colonoscopy 05/04/2023 Dyspepsia 05/04/2023 History of Helicobacter pylori infection Gastroesophageal reflux disease 05/04/2023 Larsen's esophagus 02/24/2023 Annual physical exam 02/24/2023 Assessment & Plan (02/24/2023 10:23 AM LICENSED ESTHETICIAN): -Recommended: Healthy, prudent diet. Avoiding junk food/fast food. -30 minutes of exercise most days of the week. Increase to 45 minutes for weight loss. 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 She is currently on bystolic from a previous cardiology at [facility]. Over 4 years ago. Will send [...] 04/2017 Assessment & Plan (04/17/2023 9:27 AM LICENSED ESTHETICIAN): Wt Readings from Last 3 Encounters: 04/17/23 [...] diet. Assessment & Plan (02/24/2023 10:21 AM LICENSED ESTHETICIAN): BMI Follow-up includes: education provided. Assessment & Plan (10/16/2022 1:25 PM CDT): Weight reduction, daily exercise and dietary modifications recommended., as obesity can complicate their hypercholesterolemia Moderate persistent asthma without complication 08/13/2016 Assessment & Plan (02/24/2023 10:23 AM LICENSED ESTHETICIAN): New/worsening problems today. Acute exacerbation. Will restart steroid taper. Continue albuterol p.r.n., Breo Ellipta and DuoNeb twice a day. Referral to local fractionation supervisor for ongoing asthma management Assessment & Plan [...] 7 Assessment & Plan (02/24/2023 10:24 AM LICENSED ESTHETICIAN): Worsening problem, has had problems with diarrhea [...] She is lost to follow-up with her petrologist. Labs ordered, will follow. Fatigue 07/04/2015 02/24/2023 Asthma 05/25/2015 10/16/2022 Assessment & Plan (08/01/2019 12:36 PM CDT): Well controlled on current regimen, no rx changes needed. Continue lifestyle modifications Assessment & Plan (03/08/2019 3:09 PM LICENSED ESTHETICIAN): D/c proair Start xopenex hfa inh Primary hypertension 05/25/2015 023 Overview (02/24/2023): Pt reports that she does NOT have this condition, she reports that the Bystolic is for her mitral valve prolapse. Pt wishes for this problem to be taken off of her problem list. Immunizations Name Administration Dates Next Due Influenza, Quadrivalent, Spl it, Preservative Free, Intramuscular 11/30/2012 Influenza, Unspecified 12/02/2021 Pneumococcal Conjugate Pcv20 03/26/2023 ZOSTER Recombinant 03/26/2023 Social History Tobacco Use Types Packs/Day Years [...] on file Legal Sex Female 11:58 PM LICENSED ESTHETICIAN Gender Identity Female 07/27/2018 12:12 PM CDT Sexual Orientation Not on file Last Filed Vital Signs Vital Sign Reading [...] st Contact Info) Description 04/12/2024 12:00 PM LICENSED ESTHETICIAN Hospital Encounter [address] [address] Vivek Mcintosh MD [address] [facility] [place] [address] 04/12/2024 12:00 PM LICENSED ESTHETICIAN - 04/12/2024 12:30 PM LICENSED ESTHETICIAN Surgery [address] [address] Vivek Mcintosh MD [address] [facility] [place] [address] COLONOSCOPY Scheduled Procedures Name Priority Associated Diagnoses Date/Ti me COLONOSCOPY LUQ pain Encounter for screening colonoscopy Gastroesophageal reflux disease, unspecified whether esophagitis present History of Larsen's esophagus Dyspepsia History of Helicobacter pylori infection 04/12/2024 12:00 PM LICENSED ESTHETICIAN ESOPHAGOGASTRODUODENOSCOPY LUQ pain Encounter for screening colonoscopy Gastroesophageal reflux disease, unspecified whether esophagitis present History of Larsen's esophagus Dyspepsia History of Helicobacter pylori infection 04/12/2024 12:00 PM LICENSED ESTHETICIAN Procedures Procedure Name Priority Date/Time Associated Diagnosis [...] Most Recently Relevant to Health Maintenance [facility] Care Teams Cushion Installer Relationship Specialty Start Date End Date Hernan Ibarra MD [address] [place] [address] PCP - General Family Medicine 06/30/23 Dung Hudson MD [address] [facility] [address] [place] [address] Pulmonary Disease 10/16/22 Thuan Og MD [address] [place] [address] Referring Physician Obstetrics and Gynecology 10/16/22
[2024-04-11 16:19] VITALS: BP 137/97; PULSE 87; RESP 22; TEMP 37; O2SAT 96
--- NOTE | 2024-04-11 17:10 | ED_ITS ---
HPI - URI/Sore Throat General Chief Complaint: Upper Respiratory Infection <Leti Landry PA-C - Last Filed: 04/13/24 19:28> Stated Complaint: dx w/ FLU, wheezing, low O2 <Leti Landry PA-C - Last Filed: 04/13/24 19:28> Time Seen by Provider: 04/11/24 17:10 <Leti Landry PA-C - Last Filed: 04/13/24 19:28> Focused HPI: This is a 53 year old female that presents to the ER for cold symptoms. Report she was recently diagnosed with influenza. She has been taking Tamiflu. Reports she has had worsening shortness of breath and wheezing. She was treated at [facility]. Reports she was eventually discharged. Reports she is not having any relief with home nebulizer treatments and oral steroids. GENERAL: Well-appearing, well-nourished, and in no acute distress. HEAD: Normocephalic, atraumatic. CHEST: No respiratory distress. HEART: Regular rate and rhythm.? NEURO: ?Alert and oriented x3. Patient screened in triage and initial orders placed.? ?Additional care and disposition to be based upon?diagnostic testing and treatment. <Leti Landry PA-C - Last Filed: 04/13/24 19:28> History of Present Illness HPI Narrative: I agree with the assessment and documentation of Leti Landry PA-C. < Marci Ace APRN - Last Filed: 04/12/24 00:25> Related Data Home Medications: Home Medications ?Medication ?Instructions ?Recorded ?Confirmed ?Last Taken ?Type Lactobacillus acidophilus 20 100 mmu cells PO DAILY 09/22/23 11/04/23 10/09/23 History billion cell capsule (Florajen Acidophilus) albuterol sulfate 90 mcg/actuation 1 inh inhalation Q4H 09/22/23 11/04/23 Unknown History aerosol inhaler levocetirizine 5 mg tablet (Xyzal) 5 mg PO DAILY 09/22/23 11/04/23 10/08/23 History montelukast 10 mg tablet 10 mg PO DAILY 09/22/23 11/04/23 10/09/23 History (Singulair) nebivolol 5 mg tablet (Bystolic) 5 mg PO DAILY 09/22/23 11/04/23 10/15/23 05:00 History pantoprazole 40 mg tablet,delayed 40 mg PO QAM 09/22/23 11/04/23 10/09/23 History release pseudoephedrine HCl 120 mg 120 mg PO Q12H 09/22/23 11/04/23 10/05/23 History tablet,extended release (Sudafed 12 Hour) rizatriptan 10 mg tablet (Maxalt) See Rx Instructions PO .COMPLEX 09/22/23 11/04/23 Unknown History rosuvastatin 10 mg tablet 10 mg PO DAILY 09/22/23 11/04/23 10/09/23 History simethicone 125 mg capsule (Gas-X 125 mg PO BID PRN gas 09/22/23 11/04/23 Unknown History Extra Strength) <Leti Landry PA-C - Last Filed: 04/13/24 19:28> Allergies/Adverse Reactions: Allergies Allergy/AdvReac Type Severity Reaction Status Date / Time Sulfa (Sulfonamide Allergy Unknown Other Verified 11/04/23 15:26 Antibiotics) adhesive tape AdvReac Mild Blister Verified 11/04/23 15:26 <Leti Landry PA-C - Last Filed: 04/13/24 19:28> Review of Systems 2 Review of Systems: All systems reviewed & are unremarkable except as noted in HPI and below <Marci Ace APRN - Last Filed: 04/12/24 00:25> [facility] Past Medical History Medical History: Medical History Hernia IBS (irritable bowel syndrome) Autoimmune disease Larsen esophagus Hyperlipidemia Bronchitis Hypothyroidism Migraines MVP (mitral valve prolapse) Asthma Arthritis <Leti Landry PA-C - Last Filed: 04/13/24 19:28> Surgical History Surgical History: Surgical History Hx of cholecystectomy (10/29/20) History of bunionectomy left foot History of orthopedic surgery (~1999) right shoulder labrum and bicep repair History of hysteroscopy (~11/2014) hysteroscopy- menometrorrhagia <Leti Landry PA-C - Last Filed: 04/13/24 19:28> Family History Family History: Family History Father Acute myocardial infarction COPD (chronic obstructive pulmonary disease) Mother Leukemia Thyroid disease Sibling MVP (mitral valve prolapse) sister Asthma sister Thyroid disease sister Grandparent Breast cancer maternal grandmother Other Thyroid disease maternal aunt <Leti Landry PA-C - Last Filed: 04/13/24 19:28> Social History Social History: Social History Smoking status: Never smoker Second hand tobacco smoke exposure: No Alcohol intake: never Substance use: never Substance use type: does not use Do You Feel Safe in your Home?: Yes Lack of Transportation: No Lack of Food: Never True Current Housing: I Have Housing Concerned About Future Housing: No Difficulty Paying Gas/Electric Bills: No Difficulty Paying for Meds: No Currently Unemployed: No Education: High School Diploma/GED Difficulty w/ Childcare or Family Care: No Living arrangements: with family Additional living arrangements comments: Occupation/Education: occupation 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 HEAD: Normocephalic, atraumatic. NECK: Supple. No adenopathy, no masses. RESPIRATORY: Airway patent, respirations nonlabored. Clear to auscultation bilaterally, no rales, rhonchi, wheezing. CARDIOVASCULAR: Regular rate and rhythm without murmurs, rubs, or gallops. Peripheral pulses 2+ and equal bilaterally. ABDOMINAL: Soft, nontender, nondistended, no hepatosplenomegaly. Normoactive BS. MUSCULOSKELETAL: Moves all extremities. Strength/ROM intact without gross deformities. SKIN: Warm, dry, normal color. No rashes. NEURO: A&O X3. Speech clear. Cranial nerves II-XII grossly intact. Steady gait. No ataxic movements. PSYCHIATRIC: Appropriate mood and affect. Normal interaction. <Marci Ace APRN - Last Filed: 04/12/24 00:25> Course Vital Signs Vital signs: Vital Signs Temperature 98.6 F 04/11/24 16:19 Pulse Rate 87 04/11/24 16:19 Respiratory Rate 22 H 04/11/24 16:19 Blood Pressure 137/97 H 04/11/24 16:19 Pulse Oximetry 96 04/11/24 16:19 Oxygen Delivery Room Air 04/11/24 16:19 Temperature 98.6 F 04/11/24 16:19 Pulse Rate 80 04/12/24 01:44 Respiratory Rate 19 04/12/24 01:44 Blood Pressure 133/90 04/12/24 01:44 Pulse Oximetry 98 04/12/24 01:44 Oxygen Delivery Room Air 04/11/24 22:22 <Leti Landry PA-C - Last Filed: 04/13/24 19:28> Vital Signs Temperature 98.6 F 04/11/24 16:19 Pulse Rate 87 04/11/24 16:19 Respiratory Rate 22 H 04/11/24 16:19 Blood Pressure 137/97 H 04/11/24 16:19 Pulse Oximetry 96 04/11/24 16:19 Oxygen Delivery Room Air 04/11/24 16:19 Temperature 98.6 F 04/11/24 16:19 Pulse Rate 80 04/12/24 01:44 Respiratory Rate 19 04/12/24 01:44 Blood Pressure 133/90 04/12/24 01:44 Pulse Oximetry 98 04/12/24 01:44 Oxygen Delivery Room Air 04/11/24 22:22 <Marci Ace APRN - Last Filed: 04/12/24 00:25> MDM - URI/Sore Throat MDM Narrative Medical decision making narrative: Pt is a 53 year old female that presents to the ER for cold symptoms. Report she was recently diagnosed with influenza. She has been taking Tamiflu. Reports she has had worsening shortness of breath and wheezing. She was treated at [facility]. Reports she was eventually discharged. Reports she is not having any relief with home nebulizer treatments and oral steroids. Labs Ordered: CBC, CMP, PTT, INR, (influenza A positive at outside facility) Imaging Ordered: Chest x-ray, EKG Medications Ordered: Solu-Medrol 125mg IV, DuoNeb x2, 1 L normal saline IV bolus, morphine 4 mg IV, Phenergan/Codeine cough syrup Results: Patient's chest x-ray indicates The lungs are clear, without evidence of focal consolidation or pleural effusion. Cardiomediastinal silhouette is within normal limits. Osseous structures intact. Stable large left sided hiatal hernia. Patient's CBC indicated a hemoglobin of 8.9, and a hematocrit of 30.6%. These levels were shared with patient, which she reports have been decreasing since she started her hormone replacement therapy. Diagnosis: Bronchitis, influenza A Patient Education/Shared MDM: Results shared with patient. She endorses improvement following medication administration. Patient strongly advised to maintain hydration status upon discharge and follow-up with her PCP as soon as possible. She verbalizes understanding low hemoglobin and reports this is not an acute issue. Pt will be discharged home with prescription for Phenergan/codeine cough medicine. Strict return precautions provided. Patient verbalized understanding is in agreement with plan. Vital signs stable at time of discharge. All questions answered. <Marci Ace APRN - Last Filed: 04/12/24 00:25> Differential Diagnosis Differential diagnosis: Likely upper respiratory infection, viral infection, bronchitis and influenza <Marci Ace APRN - Last Filed: 04/12/24 00:25> Lab Data Attestation: I reviewed the patient's lab results. <Marci Ace APRN - Last Filed: 04/12/24 00:25> Result diagrams: 04/11/24 17:33 04/11/24 17:33 <Leti Landry PA-C - Last Filed: 04/13/24 19:28> Labs: Lab Results 04/11/24 04/11/24 Range/Units 17:33 23:21 WBC 9.1 (4.5-10.0) K/mm3 RBC 4.22 (4.2-5.4) M/mm3 Hgb 8.9 L D (12.0-15.0) g/dL Hct 30.6 L (37.0-47.0) % MCV 72.5 L (80-100) fl MCH 21.1 L (26-34) pg MCHC 29.1 L (32-36) g/dl RDW 14.6 H (11.5-14.5) % Plt Count 242 (150-375) k/mm3 MPV 11.2 H (7.4-10.4) fl Immature Gran % (Auto) 0.9 H (0-0.5) % Neut % (Auto) 72.1 (45.5-73.1) % Lymph % (Auto) 21.6 (18.3-44.2) % [place] % (Auto) 5.2 (2.6-8.5) % Eos % (Auto) 0.1 (0-4.4) % Baso % (Auto) 0.1 L (0.2-1.2) % Lymph # (Auto) 1.96 (0.9-3.2) K/mm3 [place] # (Auto) 0.5 (0.1-0.6) K/mm3 Eos # (Auto) 0.0 (0-0.3) K/mm3 Baso # (Auto) 0.0 (0.0-0.1) K/mm3 Abs Immat Gran (auto) 0.08 H (0.00-0.031) K/mm3 Absolute Neuts (auto) 6.5 (1.3-6.7) K/mm3 Absolute Nucleated RBC 0.000 (0.0-0.012) K/mm3 Nucleated RBC % 0.0 (0.0-0.2) % Platelet Estimate Adequate (Adequate) Hypochromasia 1+ Anisocytosis 2+ Microcytosis 1+ (NORMAL) Schistocytes None seen PT 12.5 (11.1-14.7) Seconds INR 0.9 APTT 22.6 (22.3-36.8) Seconds Sodium 141 (137-145) mmol/L Potassium 3.5 (3.4-5.0) mmol/L Chloride 105 (98-107) mmol/L Carbon Dioxide 25 (22-30) mmol/L Anion Gap 11 (4-12) mmol/L BUN 12 (7-17) mg/dL Creatinine 0.70 (0.7-1.0) mg/dL Estim Creat Clear Calc 109 ml/min Estimated GFR > 60 (59 - ) Glucose 105 (65-110) mg/dL Calcium 8.8 (8.4-10.2) mg/dL Total Bilirubin 0.2 (0.2-1.3) mg/dL AST 31 (14-36) U/L ALT 31 (6-35) U/L Alkaline Phosphatase 97 (38-126) U/L Total Protein 7.0 (6.3-8.2) g/dL Albumin 3.9 (3.5-5.1) g/dL <Leti Landry PA-C - Last Filed: 04/13/24 19:28> Lab Results 04/11/24 04/11/24 Range/Units 17:33 23:21 WBC 9.1 (4.5-10.0) K/mm3 RBC 4.22 (4.2-5.4) M/mm3 Hgb 8.9 L D (12.0-15.0) g/dL Hct 30.6 L (37.0-47.0) % MCV 72.5 L (80-100) fl MCH 21.1 L (26-34) pg MCHC 29.1 L (32-36) g/dl RDW 14.6 H (11.5-14.5) % Plt Count 242 (150-375) k/mm3 MPV 11.2 H (7.4-10.4) fl Immature Gran % (Auto) 0.9 H (0-0.5) % Neut % (Auto) 72.1 (45.5-73.1) % Lymph % (Auto) 21.6 (18.3-44.2) % [place] % (Auto) 5.2 (2.6-8.5) % Eos % (Auto) 0.1 (0-4.4) % Baso % (Auto) 0.1 L (0.2-1.2) % Lymph # (Auto) 1.96 (0.9-3.2) K/mm3 [place] # (Auto) 0.5 (0.1-0.6) K/mm3 Eos # (Auto) 0.0 (0-0.3) K/mm3 Baso # (Auto) 0.0 (0.0-0.1) K/mm3 Abs Immat Gran (auto) 0.08 H (0.00-0.031) K/mm3 Absolute Neuts (auto) 6.5 (1.3-6.7) K/mm3 Absolute Nucleated RBC 0.000 (0.0-0.012) K/mm3 Nucleated RBC % 0.0 (0.0-0.2) % Platelet Estimate Adequate (Adequate) Hypochromasia 1+ Anisocytosis 2+ Microcytosis 1+ (NORMAL) Schistocytes None seen PT 12.5 (11.1-14.7) Seconds INR 0.9 APTT 22.6 (22.3-36.8) Seconds Sodium 141 (137-145) mmol/L Potassium 3.5 (3.4-5.0) mmol/L Chloride 105 (98-107) mmol/L Carbon Dioxide 25 (22-30) mmol/L Anion Gap 11 (4-12) mmol/L BUN 12 (7-17) mg/dL Creatinine 0.70 (0.7-1.0) mg/dL Estim Creat Clear Calc 109 ml/min Estimated GFR > 60 (59 - ) Glucose 105 (65-110) mg/dL Calcium 8.8 (8.4-10.2) mg/dL Total Bilirubin 0.2 (0.2-1.3) mg/dL AST 31 (14-36) U/L ALT 31 (6-35) U/L Alkaline Phosphatase 97 (38-126) U/L Total Protein 7.0 (6.3-8.2) g/dL Albumin 3.9 (3.5-5.1) g/dL <Marci Ace APRN - Last Filed: 04/12/24 00:25> Imaging Data Attestation: I personally reviewed and interpreted this imaging study as follows: < Marci Ace APRN - Last Filed: 04/12/24 00:25> Radiologist's impression: Impressions Chest X-Ray 04/11/24 17:58 Impression: Clear lungs. Stable large left-sided hiatal hernia. <Marci Ace APRN - Last Filed: 04/12/24 00:25> Critical Care Time Critical Care Time Critical Care Time: No <Leti Landry PA-C - Last Filed: 04/13/24 19:28> Discharge Plan Discharge Clinical Impression: Bronchitis Upper respiratory infection Qualifiers: URI type: unspecified URI Qualified Code(s): J06.9 - Acute upper respiratory infection, unspecified <Leti Landry PA-C - Last Filed: 04/13/24 19:28> Patient Disposition: Home, Self-Care <Leti Landry PA-C - Last Filed: 04/13/24 19:28> Condition: Stable <Leti Landry PA-C - Last Filed: 04/13/24 19:28> Instructions: Antibiotic Form, Influenza (ED), Acute Bronchitis (ED) <Leti Landry PA-C - Last Filed: 04/13/24 19:28> Additional Instructions: Please return to the ER with an worsening symptoms. Follow-up with primary care provider in the next 2-3 days. Take all medications as prescribed. Your hemoglobin today was 8.9 and your hematocrit was 30.6%. Please follow-up with your primary care provider regarding these results. <Leti Landry PA-C - Last Filed: 04/13/24 19:28> Patient Language: Slovak <Leti Landry PA-C - Last Filed: 04/13/24 19:28> Prescriptions: New codeine-guaifenesin 10-200 mg/5 mL liquid 10 ml PO Q4-6H PRN (Reason: cough) Qty: 473 0RF No Action pantoprazole 40 mg tablet,delayed release (DR/EC) 40 mg PO QAM rosuvastatin 10 mg tablet 10 mg PO DAILY Rx Instructions: Takes daily in AM. nebivolol [Bystolic] 5 mg tablet 5 mg PO DAILY rizatriptan [Maxalt] 10 mg tablet See Rx Instructions PO .COMPLEX Rx Instructions: take 1 tab at onset of headache; if no relief may repeat 1 tab after at least 2 hrs; max = 3 tabs/24 hr PO montelukast [Singulair] 10 mg tablet 10 mg PO DAILY levocetirizine [Xyzal] 5 mg tablet 5 mg PO DAILY Rx Instructions: Takes daily at HS simethicone [Gas-X Extra Strength] 125 mg capsule 125 mg PO BID PRN (Reason: gas) Florajen Acidophilus 20 billion cell capsule 100 mmu cells PO DAILY pseudoephedrine HCl [Sudafed 12 Hour] 120 mg tablet extended release 120 mg PO Q12H albuterol sulfate 90 mcg/actuation HFA aerosol inhaler 1 inh inhalation Q4H ibuprofen 600 mg tablet 600 mg PO Q8H Qty: 10 0RF ondansetron 4 mg tablet,disintegrating 4 mg PO Q6H PRN (Reason: nausea and vomiting) Qty: 30 0RF <Leti Landry PA-C - Last Filed: 04/13/24 19:28> Follow-up/Referrals: Stacey,Hernan Manzo MD [Primary Care Provider] - <Leti Landry PA-C - Last Filed: 04/13/24 19:28> Stand Alone Forms: Work/School Release IP <Leti Landry PA-C - Last Filed: 04/13/24 19:28> Time of Disposition: 00:24 <Leti Landry PA-C - Last Filed: 04/13/24 19:28> 00:24 <Marci Ace APRN - Last Filed: 04/12/24 00:25>
--- NOTE | 2024-04-11 17:13 | ECG_ITS ---
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
[2024-04-11 17:24] VITALS: PULSE 84; RESP 20
[2024-04-11] MEDS: IPRATROPIUM 0.5 MG/ALBUTEROL SULFATE 2.5 MG AMPUL.NEB 3 ML INHALATION (17:24)
[2024-04-11 17:34] VITALS: PULSE 84; RESP 20
[2024-04-11] MEDS: methylPREDNISolone SOD SUCC 125 MG VIAL IV PUSH (17:35)
[2024-04-11 17:47] LABS: Basophils Percent Auto 0.1 % (0.2-1.2); Eosinophils Percent Auto 0.1 % (0-4.4); Hematocrit 30.6 % (37.0-47.0); Hemoglobin 8.9 g/dL (12.0-15.0); Immature Granulocyte Absolute 0.08 K/mm3 (0.00-0.031); Immature Granulocyte Percent A 0.9 % (0-0.5); Lymphocytes Absolute Auto 1.96 K/mm3 (0.9-3.2); Lymphocytes Percent Auto 21.6 % (18.3-44.2); Mean Corpuscular HGB Conc 29.1 g/dl (32-36); Mean Corpuscular Hemoglobin 21.1 pg (26-34); Mean Corpuscular Volume 72.5 fl (80-100); Mean Platelet Volume 11.2 fl (7.4-10.4); Monocytes Absolute Auto 0.5 K/mm3 (0.1-0.6); Monocytes Percent Auto 5.2 % (2.6-8.5); Neutrophils Absolute Auto 6.5 K/mm3 (1.3-6.7); Neutrophils Percent Auto 72.1 % (45.5-73.1); Platelet Count Result 242 k/mm3 (150-375); Red Blood Count 4.22 M/mm3 (4.2-5.4); Red Cell Distribution Width 14.6 % (11.5-14.5); White Blood Count 9.1 K/mm3 (4.5-10.0)
[2024-04-11 18:00] LABS: Alanine Aminotransferase 31 U/L (6-35); Albumin Level 3.9 g/dL (3.5-5.1); Alkaline Phosphatase 97 U/L (38-126); Anion Gap 11 mmol/L (4-12); Aspartate Amino Transferase 31 U/L (14-36); Bilirubin,Total 0.2 mg/dL (0.2-1.3); Blood Urea Nitrogen 12 mg/dL (7-17); Calcium 8.8 mg/dL (8.4-10.2); Carbon Dioxide 25 mmol/L (22-30); Chloride 105 mmol/L (98-107); Estimated CRCL calculation 109 ml/min; Estimated Glomerular Filt Rate > 60; Glucose 105 mg/dL (65-110); Potassium 3.5 mmol/L (3.4-5.0); Sodium 141 mmol/L (137-145)
[2024-04-11 18:05] LABS: Platelet Estimate Adequate (Adequate)
[2024-04-11 18:06] LABS: Hypochromasia 1+; Microcytosis 1+ (NORMAL); Schistocytes None Seen
[2024-04-11 18:07] LABS: Anisocytosis 2+
--- NOTE | 2024-04-11 21:20 | PC.NURSE ---
pt placed in room 10, [facility] gown.
--- OUTSIDE RECORDS SUMMARY | 2024-04-11 21:55 | XMS_ITS | Clinical Summary ---
Author Organization [facility] Address [address] [place] [address] Care Team Providers Care Chemist Organic Name Role Phone Unavailable Primary Care Provider [...]
--- OUTSIDE RECORDS SUMMARY | 2024-04-11 21:56 | XMS_ITS | Encounter Summary ---
Author Organization [facility] Care Team Providers Care Shellfish Processing Machine Tender Name Role Phone Son Jeronimo MD Primary Care Provider [phone] Ben Amaral Primary Care Provider [phone] Katherine Page DO Primary Care Provider [phone] Dung Hudson MD Unavailable Thuan Og MD Unavailable [phone] Hernan Ibarra MD Primary Care Provider [phone] Encounter Details Date Type Department Care Team (Latest Contact Info) Description 07/09/2016 Orders Only [facility] CLINCONV ProviderSandra MD [address] [place] [address] Social History Tobacco Use Types Packs/Day Years Used Date Smoking Tobacco: Never Assessed Comments Unknown Sex and Gender Information Value Date Recorded Sex Assigned at Not on file Legal Sex Female 11:58 PM POLICY WRITER TYPIST Gender Identity Female 07/27/2018 12:12 PM CDT Sexual Orientation Not on file documented as of this encounter Plan of Treatment Upcoming Encounters Date Type Department Care Team (Late st Contact Info) Description 04/12/2024 12:00 PM POLICY WRITER TYPIST Hospital Encounter [address] [place] [address] Vivek Mcintosh MD [address] [facility] [address] [place] [address] 04/12/2024 12:00 PM POLICY WRITER TYPIST - 04/12/2024 12:30 PM POLICY WRITER TYPIST Surgery [facility] [address] [place] [address] Vivek Mcintosh MD [address] [facility] [address] [place] [address] COLONOSCOPY Scheduled Procedures Name Priority Associated Diagnoses Date/Ti me COLONOSCOPY LUQ pain Encounter for screening colonoscopy Gastroesophageal reflux disease, unspecified whether esophagitis present History of Larsen's esophagus Dyspepsia History of Helicobacter pylori infection 04/12/2024 12:00 PM POLICY WRITER TYPIST ESOPHAGOGASTRODUODENOSCOPY LUQ pain Encounter for screening colonoscopy Gastroesophageal reflux disease, unspecified whether esophagitis present History of Larsen's esophagus Dyspepsia History of Helicobacter pylori infection 04/12/2024 12:00 PM POLICY WRITER TYPIST documented as of this encounter Procedures Procedure Name Priority Date/Time Associated Diagnosis Comments SCAN - LABS 07/09/2016 12:00 AM CDT documented in this encounter Results * SCAN - LABS (07/09/2016 12:00 AM CDT) Narrative 07/09/2016 12:00 AM CDT Ordered by an unspecified provider. Historical Provider Final Res ult documented in this encounter Visit Diagnoses Not on filedocumented in this encounter Care Teams Shellfish Processing Machine Tender Relationship Specialty Start Date End Date Son Jeronimo MD PCP - General Family Medicine 07/27/18 11/26/21 Ben Amaral PA PCP - General Family Medicine 11/27/21 10/15/22 Katherine Page DO [address] [facility] [address] [address] PCP - General Family Medicine 10/16/22 06/29/23 Hernan Ibarra MD [address] [place] [address] PCP - General Family Medicine 06/30/23 Dung Hudson MD [address] [address] Pulmonary Disease 10/16/22 Thuan Og MD [address] [place] [address] Referring Physician Obstetrics and Gynecology 10/16/22 documented as of this encounter
--- OUTSIDE RECORDS SUMMARY | 2024-04-11 21:56 | XMS_ITS | Encounter Summary ---
Author Organization [facility] Care Team Providers Care Sole Conditioner Name Role Phone Son Jeronimo MD Primary Care Provider [phone] Ben Amaral Primary Care Provider [phone] Katherine Page DO Primary Care Provider [phone] Dung Hudson MD Unavailable Thuan Og MD Unavailable [phone] Hernan Ibarra MD Primary Care Provider Encounter Details Date Type Department Care Team (Latest Contact Info) Description 11/17/2016 Orders Only [facility] CLINCONV ProviderSandra MD [address] [place] [address] Social History Tobacco Use Types Packs/Day Years Used Date Smoking Tobacco: Never Assessed Comments Unknown Sex and Gender Information Value Date Recorded Sex Assigned at Not on file Legal Sex Female 11:58 PM AIRPLANE MECHANIC APPRENTICE Gender Identity Female 07/27/2018 12:12 PM CDT Sexual Orientation Not on file documented as of this encounter Plan of Treatment Upcoming Encounters Date Type Department Care Team (Late st Contact Info) Description 04/12/2024 12:00 PM AIRPLANE MECHANIC APPRENTICE Hospital Encounter [address] [place] [address] Vivek Mcintosh MD [address] [facility] [address] [place] [address] 04/12/2024 12:00 PM AIRPLANE MECHANIC APPRENTICE - 04/12/2024 12:30 PM AIRPLANE MECHANIC APPRENTICE Surgery [address] [address] Vivek Mcintosh MD [address] [facility] [address] [place] [address] COLONOSCOPY Scheduled Procedures Name Priority Associated Diagnoses Date/Ti me COLONOSCOPY LUQ pain Encounter for screening colonoscopy Gastroesophageal reflux disease, unspecified whether esophagitis present History of Larsen's esophagus Dyspepsia History of Helicobacter pylori infection 04/12/2024 12:00 PM AIRPLANE MECHANIC APPRENTICE ESOPHAGOGASTRODUODENOSCOPY LUQ pain Encounter for screening colonoscopy Gastroesophageal reflux disease, unspecified whether esophagitis present History of Larsen's esophagus Dyspepsia History of Helicobacter pylori infection 04/12/2024 12:00 PM AIRPLANE MECHANIC APPRENTICE documented as of this encounter Procedures Procedure [...] on filedocumented in this encounter Care Teams Sole Conditioner Relationship Specialty Start Date End Date Son Jeronimo MD PCP - General Family Medicine 07/27/18 11/26/21 Ben Amaral PA PCP - General Family Medicine 11/27/21 10/15/22 Katherine Page DO [address] [facility] [address] [place] [address] PCP - General Family Medicine 10/16/22 06/29/23 Hernan Ibarra MD [address] [place] [address] PCP - General Family Medicine 06/30/23 Dung Hudson MD [address] [address] Pulmonary Disease 10/16/22 Thuan Og MD [address] [place] [address] Referring Physician Obstetrics and Gynecology 10/16/22 documented as of this encounter
--- OUTSIDE RECORDS SUMMARY | 2024-04-11 21:56 | XMS_ITS | CONTINUITY OF CARE DOCUMENT ---
Author Name butch rae Address Unknown Organization [facility] Address [address] [place] [address] [address] [place] [address] Phone [phone] Care Team Providers Care Operations Professional Name Role Phone Ralf Sykes MD Unavailable [phone] MARIO MARTINES MD Unavailable [phone] MARIO MARTINES MD Unavailable [phone] PROBLEMS Condition Status Date Provider Notes Asthma active Kaley Paredes MD Mitral regurgitation active Kaley can MD trace Mitral valve prolapse active Kaley denton MD Subtle- posterior leaflet Other symptoms involving cardiovascular system active Kaley Paredes MD ENCOUNTERS Date Type Provider Location Encounter Diag nosis - In-person encounter Office Visit Kaley Paredes MD [place] [facility] Other symptoms involving cardiovascular systemMitral valve [...] Observation Value Provider number of grandchildren Kaley Paredes MD social history E&M S moking History: Brian cano has never smoked. Kaley Paredes MD social history reviewed E&M revi ewed - no changes required Kaley Paredes MD smoking status Never smoker [address] [facility] FAMILY HISTORY Family Member Condition Father Family History of Co ronary Artery Disease: INSURANCE PROVIDERS Payer name Policy type / Coverage type [place] red green party ID [facility] [id number] ADVANCE DIRECTIVES Name Date DISCUSSED - NO [...] completed EKG Kaley Paredes MD completed SNOMED-CT: [id number] Current Medications Documented Kaley Paredes MD completed
--- OUTSIDE RECORDS SUMMARY | 2024-04-11 21:56 | XMS_ITS | Referral Summary ---
Author Organization [address] Address [address] [place] [address] Care Team Providers Care Conflict Resolution Professional Name Role Phone Dung Hudson MD Unavailable Thuan Og MD Unavailable [phone] Hernan Ibarra MD Primary Care Provider [phone] Encounters Date Type Department Care Team Description 02/02/[address] [facility] Diabetes and Endocrinology [address] [place] [id number] ProviderSandra MD 02/02/2024 Telephone [facility] [address] [address] Tianna Pineda MD Lab Reports [...] Anti-Inflammatory Drug) Other (See comments) Low 02/24/2023 Luebbering Oil Vomiting Low 09/13/2020 Feels weird Sulfa [...] daily 90 tablet 1 023 Active rizatriptan TECHNICAL MARKETING CONSULTANT (MAXALT-TECHNICAL MARKETING CONSULTANT) 10 mg disintegrating tabletIndications:Moder ate persistent asthma [...] a day 60 tablet 3 024 Active wfpqgbffnrc-bdwhyrsct-r ilanter (Trelegy Ellipta) 200-62.5-25 mcg inhaler Inhale [...] 02/24/2023 Assessment & Plan (02/24/2023 10:23 AM COMMERCIAL LINES MANAGER): -Recommended: Healthy, prudent diet. Avoiding junk food/fast food. -30 minutes of exercise most days of the week. Increase to 45 minutes for weight loss. -Mammogram every 1 year,- up-to-date, -Regular gynecologic examinations with pelvic exam & PAP smear every 3-5 years if you have not had a hysterectomy (does have a site damage prevention technician), -Periodic blood pressure monitoring, & bone-density testing [...] 10/16/2022 Assessment & Plan (02/24/2023 9:58 AM COMMERCIAL LINES MANAGER): Will refer to cardiology for current workup. She is currently on bystolic from a previous cardiology at [facility]. Over 4 years ago. Will send [...] 04/2017 Assessment & Plan (04/17/2023 9:27 AM COMMERCIAL LINES MANAGER): Wt Readings from Last 3 Encounters: 04/17/23 [...] diet. Assessment & Plan (02/24/2023 10:21 AM COMMERCIAL LINES MANAGER): BMI Follow-up includes: education provided. Assessment & Plan (10/16/2022 1:25 PM CDT): Weight reduction, daily exercise and dietary modifications recommended., as obesity can complicate their hypercholesterolemia Moderate persistent asthma without complication 08/13/2016 Assessment & Plan (02/24/2023 10:23 AM COMMERCIAL LINES MANAGER): New/worsening problems today. Acute exacerbation. Will restart steroid taper. Continue albuterol p.r.n., Breo Ellipta and DuoNeb twice a day. Referral to local program production specialist for ongoing asthma management Assessment & Plan [...] 7 Assessment & Plan (02/24/2023 10:24 AM COMMERCIAL LINES MANAGER): Worsening problem, has had problems with diarrhea [...] She is lost to follow-up with her wire walker. Labs ordered, will follow. Fatigue 07/04/2015 02/24/2023 Asthma 05/25/2015 10/16/2022 Assessment & Plan (08/01/2019 12:36 PM CDT): Well controlled on current regimen, no rx changes needed. Continue lifestyle modifications Assessment & Plan (03/08/2019 3:09 PM COMMERCIAL LINES MANAGER): D/c proair Start xopenex hfa inh Primary [...] file Legal Sex Female 11:58 PM COMMERCIAL LINES MANAGER Gender Identity Female 07/27/2018 12:12 PM [...] Contact Info) Description 04/12/2024 12:00 PM COMMERCIAL LINES MANAGER Hospital Encounter [address] [address] Vivek Mcintosh MD [address] [facility] [address] [place] [address] 04/12/2024 12:00 PM COMMERCIAL LINES MANAGER - 04/12/2024 12:30 PM COMMERCIAL LINES MANAGER Surgery [address] [address] Vivek Mcintosh MD [address] [facility] [address] [place] [address] COLONOSCOPY Scheduled Procedures Name Priority Associated Diagnoses Date/Ti me COLONOSCOPY LUQ pain Encounter for screening colonoscopy Gastroesophageal reflux disease, unspecified whether esophagitis present History of Larsen's esophagus Dyspepsia History of Helicobacter pylori infection 04/12/2024 12:00 PM COMMERCIAL LINES MANAGER ESOPHAGOGASTRODUODENOSCOPY LUQ pain Encounter for screening colonoscopy Gastroesophageal reflux disease, unspecified whether esophagitis present History of Larsen's esophagus Dyspepsia History of Helicobacter pylori infection 04/12/2024 12:00 PM COMMERCIAL LINES MANAGER Procedures Procedure Name Priority Date/Time Associated Diagnosis [...] Maintenance [facility] Care Teams Conflict Resolution Professional Relationship Specialty Start Date End Date Hernan Ibarra MD [address] [place] [address] PCP - General Family Medicine 06/30/23 Dung Hudson MD [address] [facility] [address] [place] [address] Pulmonary Disease 10/16/22 Thuan Og MD [address] [place] [address] Referring Physician Obstetrics and Gynecology 10/16/22
--- OUTSIDE RECORDS SUMMARY | 2024-04-11 21:56 | XMS_ITS | Encounter Summary ---
Author Organization [facility] Care Team Providers Care Metal Building Assembler Name Role Phone Son Jeronimo MD Primary Care Provider [phone] Ben Amaral Primary Care Provider [phone] Katherine Page DO Primary Care Provider [phone] Dung Hudson MD Unavailable Thuan Og MD Unavailable [phone] Hernan Ibarra MD Primary Care Provider Encounter Details Date Type Department Care Team (Latest Contact Info) Description 06/28/2015 Orders Only [facility] CLINCONV ProviderSandra MD [address] [place] [address] Social History Tobacco Use Types Packs/Day Years Used Date Smoking Tobacco: Never Assessed Comments Unknown Sex and Gender Information Value Date Recorded Sex Assigned at Not on file Legal Sex Female 11:58 PM JOB COACH/JOB DEVELOPER Gender Identity Female 07/27/2018 12:12 PM CDT Sexual Orientation Not on file documented as of this encounter Plan of Treatment Upcoming Encounters Date Type Department Care Team (Late st Contact Info) Description 04/12/2024 12:00 PM JOB COACH/JOB DEVELOPER Hospital Encounter [address] [place] [address] Vivek Mcintosh MD [address] [facility] [address] [place] [address] 04/12/2024 12:00 PM JOB COACH/JOB DEVELOPER - 04/12/2024 12:30 PM JOB COACH/JOB DEVELOPER Surgery [facility] 1 [place] [address] Vivek Mcintosh MD [address] [facility] [address] [place] [address] COLONOSCOPY Scheduled Procedures Name Priority Associated Diagnoses Date/Ti me COLONOSCOPY LUQ pain Encounter for screening colonoscopy Gastroesophageal reflux disease, unspecified whether esophagitis present History of Larsen's esophagus Dyspepsia History of Helicobacter pylori infection 04/12/2024 12:00 PM JOB COACH/JOB DEVELOPER ESOPHAGOGASTRODUODENOSCOPY LUQ pain Encounter for screening colonoscopy Gastroesophageal reflux disease, unspecified whether esophagitis present History of Larsen's esophagus Dyspepsia History of Helicobacter pylori infection 04/12/2024 12:00 PM JOB COACH/JOB DEVELOPER documented as of this encounter Procedures Procedure Name Priority Date/Time Associated Diagnosis Comments SCAN - LABS 06/28/2015 12:00 AM CDT documented in this encounter Results * SCAN - LABS (06/28/2015 12:00 AM CDT) Narrative 06/28/2015 12:00 AM CDT Ordered by an unspecified provider. Historical Provider Final Res ult documented in this encounter Visit Diagnoses Not on filedocumented in this encounter Care Teams Metal Building Assembler Relationship Specialty Start Date End Date Son Jeronimo MD PCP - General Family Medicine 07/27/18 11/26/21 Ben Amaral PA PCP - General Family Medicine 11/27/21 10/15/22 Katherine Page DO [address] [facility] [address] [address] PCP - General Family Medicine 10/16/22 06/29/23 Hernan Ibarra MD [address] [place] [address] PCP - General Family Medicine 06/30/23 Dung Hudson MD [address] [address] Pulmonary Disease 10/16/22 Thuan Og MD [address] [place] [address] Referring Physician Obstetrics and Gynecology 10/16/22 documented as of this encounter
--- OUTSIDE RECORDS SUMMARY | 2024-04-11 21:56 | XMS_ITS | Encounter Summary ---
Author Organization [facility] Care Team Providers Care Academic Advisor Name Role Phone Son Jeronimo MD Primary Care Provider [phone] Ben Amaral Primary Care Provider [phone] Katherine Page DO Primary Care Provider [phone] Dung Hudson MD Unavailable Thuan Og MD Unavailable [phone] Hernan Ibarra MD Primary Care Provider Encounter Details Date Type Department Care Team (Latest Contact Info) Description 05/29/2016 Orders Only [facility] CLINCONV ProviderSandra MD [address] [place] [address] Social History Tobacco Use Types Packs/Day Years Used Date Smoking Tobacco: Never Assessed Comments Unknown Sex and Gender Information Value Date Recorded Sex Assigned at Not on file Legal Sex Female 11:58 PM MEAT TEAM LEAD Gender Identity Female 07/27/2018 12:12 PM CDT Sexual Orientation Not on file documented as of this encounter Plan of Treatment Upcoming Encounters Date Type Department Care Team (Late st Contact Info) Description 04/12/2024 12:00 PM MEAT TEAM LEAD Hospital Encounter [address] [place] [address] Vivek Mcintosh MD [address] [facility] [address] [place] [address] 04/12/2024 12:00 PM MEAT TEAM LEAD - 04/12/2024 12:30 PM MEAT TEAM LEAD Surgery [facility] 1 [place] [address] Vivek Mcintosh MD [address] [facility] [address] [place] [address] COLONOSCOPY Scheduled Procedures Name Priority Associated Diagnoses Date/Ti me COLONOSCOPY LUQ pain Encounter for screening colonoscopy Gastroesophageal reflux disease, unspecified whether esophagitis present History of Larsen's esophagus Dyspepsia History of Helicobacter pylori infection 04/12/2024 12:00 PM MEAT TEAM LEAD ESOPHAGOGASTRODUODENOSCOPY LUQ pain Encounter for screening colonoscopy Gastroesophageal reflux disease, unspecified whether esophagitis present History of Larsen's esophagus Dyspepsia History of Helicobacter pylori infection 04/12/2024 12:00 PM MEAT TEAM LEAD documented as of this encounter Procedures Procedure Name Priority Date/Time Associated Diagnosis Comments SCAN - LABS 05/30/2016 12:00 AM CDT documented in this encounter Results * SCAN - LABS (05/30/2016 12:00 AM CDT) Narrative 05/30/2016 12:00 AM CDT Ordered by an unspecified provider. Historical Provider Final Res ult documented in this encounter Visit Diagnoses Not on filedocumented in this encounter Care Teams Academic Advisor Relationship Specialty Start Date End Date Son Jeronimo MD PCP - General Family Medicine 07/27/18 11/26/21 Ben Amaral PA PCP - General Family Medicine 11/27/21 10/15/22 Katherine Page DO [address] [facility] [address] [address] PCP - General Family Medicine 10/16/22 06/29/23 Hernan Ibarra MD [address] [place] [address] PCP - General Family Medicine 06/30/23 Dung Hudson MD [address] [address] Pulmonary Disease 10/16/22 Thuan Og MD [address] [place] [address] Referring Physician Obstetrics and Gynecology 10/16/22 documented as of this encounter
--- OUTSIDE RECORDS SUMMARY | 2024-04-11 21:56 | XMS_ITS | Encounter Summary ---
Author Organization [facility] Care Team Providers Care Registered Nurse Bone Marrow Transplant Name Role Phone Son Jeronimo MD Primary Care Provider [phone] Ben Amaral Primary Care Provider [phone] Katherine Page DO Primary Care Provider [phone] Dung Hudson MD Unavailable Thuan Og MD Unavailable [phone] Hernan Ibarra MD Primary Care Provider Encounter Details Date Type Department Care Team (Latest Contact Info) Description 08/28/2017 Orders Only [facility] CLINCONV ProviderSandra MD [address] [place] [address] Social History Tobacco Use Types Packs/Day Years Used Date Smoking Tobacco: Never Assessed Comments Unknown Sex and Gender Information Value Date Recorded Sex Assigned at Not on file Legal Sex Female 11:58 PM KEYBOARDING TEACHER Gender Identity Female 07/27/2018 12:12 PM CDT Sexual Orientation Not on file documented as of this encounter Plan of Treatment Upcoming Encounters Date Type Department Care Team (Late st Contact Info) Description 04/12/2024 12:00 PM KEYBOARDING TEACHER Hospital Encounter [address] [place] [address] Vivek Mcintosh MD [address] [facility] [address] [place] [address] 04/12/2024 12:00 PM KEYBOARDING TEACHER - 04/12/2024 12:30 PM KEYBOARDING TEACHER Surgery [facility] 1 [place] [address] Vivek Mcintosh MD [address] [facility] [address] [place] [address] COLONOSCOPY Scheduled Procedures Name Priority Associated Diagnoses Date/Ti me COLONOSCOPY LUQ pain Encounter for screening colonoscopy Gastroesophageal reflux disease, unspecified whether esophagitis present History of Larsen's esophagus Dyspepsia History of Helicobacter pylori infection 04/12/2024 12:00 PM KEYBOARDING TEACHER ESOPHAGOGASTRODUODENOSCOPY LUQ pain Encounter for screening colonoscopy Gastroesophageal reflux disease, unspecified whether esophagitis present History of Larsen's esophagus Dyspepsia History of Helicobacter pylori infection 04/12/2024 12:00 PM KEYBOARDING TEACHER documented as of this encounter Procedures [...] on filedocumented in this encounter Care Teams Registered Nurse Bone Marrow Transplant Relationship Specialty Start Date End Date Son Jeronimo MD PCP - General Family Medicine 07/27/18 11/26/21 Ben Amaral PA PCP - General Family Medicine 11/27/21 10/15/22 Katherine Page DO [address] [facility] [address] [address] PCP - General Family Medicine 10/16/22 06/29/23 Hernan Ibarra MD [address] [place] [address] PCP - General Family Medicine 06/30/23 [place] [address] [place] [address] Pulmonary Disease 10/16/22 Thuan Og MD [address] [place] [address] Referring Physician Obstetrics and Gynecology 10/16/22 documented as of this encounter
--- OUTSIDE RECORDS SUMMARY | 2024-04-11 21:56 | XMS_ITS | Encounter Summary ---
Author Organization [facility] Facility Care Team Providers Care Webmethods Architect Name Role Phone Son Jeronimo MD Primary Care Provider [phone] Ben Amaral Primary Care Provider [phone] Katherine Page DO Primary Care Provider [phone] Dung Hudson MD Unavailable Thuan Og MD Unavailable [phone] Hernan Ibarra MD Primary Care Provider Encounter Details Date Type Department Care Team (Latest Contact Info) Description 05/23/2016 Orders Only [facility] CLINCONV ProviderSandra MD [address] [place] [address] Social History Tobacco Use Types Packs/Day Years Used Date Smoking Tobacco: Never Assessed Comments Unknown Sex and Gender Information Value Date Recorded Sex Assigned at Not on file Legal Sex Female 11:58 PM BUNCH MAKER HAND Gender Identity Female 07/27/2018 12:12 PM CDT Sexual Orientation Not on file documented as of this encounter Plan of Treatment Upcoming Encounters Date Type Department Care Team (Late st Contact Info) Description 04/12/2024 12:00 PM BUNCH MAKER HAND Hospital Encounter [address] [place] [address] Vivek Mcintosh MD [address] [facility] [address] [place] [address] 04/12/2024 12:00 PM BUNCH MAKER HAND - 04/12/2024 12:30 PM BUNCH MAKER HAND Surgery [address] [address] Vivek Mcintosh MD [address] [facility] [address] [place] [address] COLONOSCOPY Scheduled Procedures Name Priority Associated Diagnoses Date/Ti me COLONOSCOPY LUQ pain Encounter for screening colonoscopy Gastroesophageal reflux disease, unspecified whether esophagitis present History of Larsen's esophagus Dyspepsia History of Helicobacter pylori infection 04/12/2024 12:00 PM BUNCH MAKER HAND ESOPHAGOGASTRODUODENOSCOPY LUQ pain Encounter for screening colonoscopy Gastroesophageal reflux disease, unspecified whether esophagitis present History of Larsen's esophagus Dyspepsia History of Helicobacter pylori infection 04/12/2024 12:00 PM BUNCH MAKER HAND documented as of this encounter Procedures Procedure [...] on filedocumented in this encounter Care Teams Webmethods Architect Relationship Specialty Start Date End Date Son Jeronimo MD PCP - General Family Medicine 07/27/18 11/26/21 Ben Amaral PA PCP - General Family Medicine 11/27/21 10/15/22 Katherine Page DO [address] [facility] [address] [place] [address] PCP - General Family Medicine 10/16/22 06/29/23 Hernan Ibarra MD [address] [place] [address] PCP - General Family Medicine 06/30/23 Dung Hudson MD [address] [address] Pulmonary Disease 10/16/22 Thuan Og MD [address] [place] [address] Referring Physician Obstetrics and Gynecology 10/16/22 documented as of this encounter
--- OUTSIDE RECORDS SUMMARY | 2024-04-11 21:56 | XMS_ITS | Encounter Summary ---
Author Organization [facility] Facility Care Team Providers Care Forming Fixer Name Role Phone Son Jeronimo MD Primary Care Provider [phone] Ben Amaral Primary Care Provider [phone] Katherine Page DO Primary Care Provider [phone] Dung Hudson MD Unavailable Thuan Og MD Unavailable [phone] Hernan Ibarra MD Primary Care Provider Encounter Details Date Type Department Care Team (Latest Contact Info) Description 09/29/2017 Orders Only [facility] CLINCONV ProviderSandra MD [address] [place] [address] Social History Tobacco Use Types Packs/Day Years Used Date Smoking Tobacco: Never Assessed Comments Unknown Sex and Gender Information Value Date Recorded Sex Assigned at Not on file Legal Sex Female 11:58 PM CHEMICAL OPERATOR Gender Identity Female 07/27/2018 12:12 PM CDT Sexual Orientation Not on file documented as of this encounter Plan of Treatment Upcoming Encounters Date Type Department Care Team (Late st Contact Info) Description 04/12/2024 12:00 PM CHEMICAL OPERATOR Hospital Encounter [address] [place] [address] Vivek Mcintosh MD 4 [facility] [address] [place] [address] 04/12/2024 12:00 PM CHEMICAL OPERATOR - 04/12/2024 12:30 PM CHEMICAL OPERATOR Surgery [facility] [address] [place] [address] Vivek Mcintosh MD 4 [facility] [address] [place] [address] COLONOSCOPY Scheduled Procedures Name Priority Associated Diagnoses Date/Ti me COLONOSCOPY LUQ pain Encounter for screening colonoscopy Gastroesophageal reflux disease, unspecified whether esophagitis present History of Larsen's esophagus Dyspepsia History of Helicobacter pylori infection 04/12/2024 12:00 PM CHEMICAL OPERATOR ESOPHAGOGASTRODUODENOSCOPY LUQ pain Encounter for screening colonoscopy Gastroesophageal reflux disease, unspecified whether esophagitis present History of Larsen's esophagus Dyspepsia History of Helicobacter pylori infection 04/12/2024 12:00 PM CHEMICAL OPERATOR documented as of this encounter Procedures Procedure Name Priority Date/Time Associated Diagnosis Comments SCAN - LABS 10/02/2017 12:00 AM CDT documented in this encounter Results * SCAN - LABS (10/02/2017 12:00 AM CDT) Narrative 10/02/2017 12:00 AM CDT Ordered by an unspecified provider. Historical Provider Final Res ult documented in this encounter Visit Diagnoses Not on filedocumented in this encounter Care Teams Forming Fixer Relationship Specialty Start Date End Date Son Jeronimo MD PCP - General Family Medicine 07/27/18 11/26/21 Ben Amaral PA PCP - General Family Medicine 11/27/21 10/15/22 Katherine Page DO [address] [facility] [address] [address] PCP - General Family Medicine 10/16/22 06/29/23 Hernan Ibarra MD [address] [place] [address] PCP - General Family Medicine 06/30/23 Dung Hudson MD [address] [address] Pulmonary Disease 10/16/22 Thuan Og MD [address] [place] [address] Referring Physician Obstetrics and Gynecology 10/16/22 documented as of this encounter
--- OUTSIDE RECORDS SUMMARY | 2024-04-11 21:56 | XMS_ITS | Clinical Summary ---
Author Organization [address] Address [address] [place] [id number] Care Team Providers Care Senior Microsoft Net Developer Name Role Phone Dung Hudson MD Unavailable Thuan Og MD Unavailable [phone] Hernan Ibarra MD Primary Care Provider Allergies Active Allergy Reactions Criticality Noted Date Comments Adhesive Rash Medium 07/27/2018 Adhesive Tape-Silicones Hives Medium 02/24/2023 Celecoxib Unknown 07/15/2018 tingly lips Erythromycin Stomach upset Low 07/15/2018 stomach pain Ibuprofen Stomach upset Low 07/15/2018 stomach pain Latex Itching Low 07/27/2018 Latex, Natural Rubber Hives Medium 02/24/2023 Nsaids (Non-Steroidal Anti-Inflammatory Drug) Other (See comments) Low 02/24/2023 [place] Oil Vomiting Low 09/13/2020 Feels weird Sulfa [...] daily 90 tablet 1 023 Active rizatriptan WIRE WINDING MACHINE OPERATOR (MAXALT-WIRE WINDING MACHINE OPERATOR) 10 mg disintegrating tabletIndications:Moder ate persistent asthma [...] times a day 60 tablet 3 Active yhmkuylcsql-tsounbqdy-v ilanter (Trelegy Ellipta) 200-62.5-25 mcg inhaler Inhale [...] ultrasound reports and FNA cytology reports from [facility] Follow-up in 1 year for a repeat thyroid ultrasound History of Larsen's esophagus 05/04/2023 LUQ pain 05/04/2023 Encounter for screening colonoscopy 05/04/2023 Dyspepsia 05/04/2023 History of Helicobacter pylori infection Gastroesophageal reflux disease 05/04/2023 Larsen's esophagus 02/24/2023 Annual physical exam 02/24/2023 Assessment & Plan (02/24/2023 10:23 AM JOURNEYMAN MOLDER): -Recommended: Healthy, prudent diet. Avoiding junk food/fast food. -30 minutes of exercise most days of the week. Increase to 45 minutes for weight loss. -Mammogram every 1 year,- up-to-date, -Regular gynecologic examinations with pelvic exam & PAP smear every 3-5 years if you have not had a hysterectomy (does have a order planner), -Periodic blood pressure monitoring, & bone-density testing [...] 10/16/2022 Assessment & Plan (02/24/2023 9:58 AM JOURNEYMAN MOLDER): Will refer to cardiology for current workup. She is currently on bystolic from a previous cardiology at [facility]. Over 4 years ago. Will send [...] 04/2017 Assessment & Plan (04/17/2023 9:27 AM JOURNEYMAN MOLDER): Wt Readings from Last 3 Encounters: 04/17/23 [...] diet. Assessment & Plan (02/24/2023 10:21 AM JOURNEYMAN MOLDER): BMI Follow-up includes: education provided. Assessment & Plan (10/16/2022 1:25 PM CDT): Weight reduction, daily exercise and dietary modifications recommended., as obesity can complicate their hypercholesterolemia Moderate persistent asthma without complication 08/13/2016 Assessment & Plan (02/24/2023 10:23 AM JOURNEYMAN MOLDER): New/worsening problems today. Acute exacerbation. Will restart steroid taper. Continue albuterol p.r.n., Breo Ellipta and DuoNeb twice a day. Referral to local warehouse operations associate for ongoing asthma management Assessment & Plan [...] 7 Assessment & Plan (02/24/2023 10:24 AM JOURNEYMAN MOLDER): Worsening problem, has had problems with diarrhea [...] She is lost to follow-up with her integrity manager. Labs ordered, will follow. Fatigue 07/04/2015 02/24/2023 Asthma 05/25/2015 10/16/2022 Assessment & Plan (08/01/2019 12:36 PM CDT): Well controlled on current regimen, no rx changes needed. Continue lifestyle modifications Assessment & Plan (03/08/2019 3:09 PM JOURNEYMAN MOLDER): D/c proair Start xopenex hfa inh Primary hypertension 05/25/2015 023 Overview (02/24/2023): Pt reports that she does NOT have this condition, she reports that the Bystolic is for her mitral valve prolapse. Pt wishes for this problem to be taken off of her problem list. Encounters Date Type Department Care Team Description 02/02/2024 Orders Only [facility] Diabetes [facility] Endocrinology [address] [place] [id number] ProviderSandra MD 02/02/2024 Telephone [facility] [id number] [place] [address] [address] [address] Tianna Pineda MD Lab Reports [...] on file Legal Sex Female 11:58 PM JOURNEYMAN MOLDER Gender Identity Female 07/27/2018 12:12 PM CDT [...] st Contact Info) Description 04/12/2024 12:00 PM JOURNEYMAN MOLDER Hospital Encounter [facility] [address] [place] [address] Vivek Mcintosh MD [address] [facility] [address] [place] [address] 04/12/2024 12:00 PM JOURNEYMAN MOLDER - 04/12/2024 12:30 PM JOURNEYMAN MOLDER Surgery [facility] 1 [place] [address] Vivek Mcintosh MD [address] [facility] [address] [place] [address] COLONOSCOPY Scheduled Procedures Name Priority Associated Diagnoses Date/Ti me COLONOSCOPY LUQ pain Encounter for screening colonoscopy Gastroesophageal reflux disease, unspecified whether esophagitis present History of Larsen's esophagus Dyspepsia History of Helicobacter pylori infection 04/12/2024 12:00 PM JOURNEYMAN MOLDER ESOPHAGOGASTRODUODENOSCOPY LUQ pain Encounter for screening colonoscopy Gastroesophageal reflux disease, unspecified whether esophagitis present History of Larsen's esophagus Dyspepsia History of Helicobacter pylori infection 04/12/2024 12:00 PM JOURNEYMAN MOLDER Health Maintenance Due Date Last Done Comments [...] Most Recently Relevant to Health Maintenance Insurance [employer] [facility] Care Teams Senior Microsoft Net Developer Relationship Specialty Start Date End Date Hernan Ibarra MD [address] [place] [address] PCP - General Family Medicine 06/30/23 Dung Hudson MD [address] [address] Pulmonary Disease 10/16/22 Thuan Og MD [address] [place] [address] Referring Physician Obstetrics and Gynecology 10/16/22
--- OUTSIDE RECORDS SUMMARY | 2024-04-11 21:56 | XMS_ITS | Encounter Summary ---
Author Organization [facility] Facility Care Team Providers Care Supervisor Wet End Name Role Phone Son Jeronimo MD Primary Care Provider [phone] Ben Amaral Primary Care Provider [phone] Katherine Page DO Primary Care Provider [phone] Dung Hudson MD Unavailable Thuan Og MD Unavailable [phone] Hernan Ibarra MD Primary Care Provider [phone] Encounter Details Date Type Department Care Team (Latest Contact Info) Description 10/21/2016 Orders Only [facility] CLINCONV ProviderSandra MD [address] [place] [address] Social History Tobacco Use Types Packs/Day Years Used Date Smoking Tobacco: Never Assessed Comments Unknown Sex and Gender Information Value Date Recorded Sex Assigned at Not on file Legal Sex Female 11:58 PM CUT OFF SAW GRADER Gender Identity Female 07/27/2018 12:12 PM CDT Sexual Orientation Not on file documented as of this encounter Plan of Treatment Upcoming Encounters Date Type Department Care Team (Late st Contact Info) Description 04/12/2024 12:00 PM CUT OFF SAW GRADER Hospital Encounter [address] [place] [address] Vivek Mcintosh MD 4 [facility] [address] [place] [address] 04/12/2024 12:00 PM CUT OFF SAW GRADER - 04/12/2024 12:30 PM CUT OFF SAW GRADER Surgery [facility] 1 [place] [address] Vivek Mcintosh MD 4 [facility] [address] [place] [address] COLONOSCOPY Scheduled Procedures Name Priority Associated Diagnoses Date/Ti me COLONOSCOPY LUQ pain Encounter for screening colonoscopy Gastroesophageal reflux disease, unspecified whether esophagitis present History of Larsen's esophagus Dyspepsia History of Helicobacter pylori infection 04/12/2024 12:00 PM CUT OFF SAW GRADER ESOPHAGOGASTRODUODENOSCOPY LUQ pain Encounter for screening colonoscopy Gastroesophageal reflux disease, unspecified whether esophagitis present History of Larsen's esophagus Dyspepsia History of Helicobacter pylori infection 04/12/2024 12:00 PM CUT OFF SAW GRADER documented as of this encounter Procedures Procedure Name Priority Date/Time Associated Diagnosis Comments SCAN - LABS 10/22/2016 12:00 AM CDT documented in this encounter Results * SCAN - LABS (10/22/2016 12:00 AM CDT) Narrative 10/22/2016 12:00 AM CDT Ordered by an unspecified provider. Historical Provider Final Res ult documented in this encounter Visit Diagnoses Not on filedocumented in this encounter Care Teams Supervisor Wet End Relationship Specialty Start Date End Date Son Jeronimo MD PCP - General Family Medicine 07/27/18 11/26/21 Ben Amaral PA PCP - General Family Medicine 11/27/21 10/15/22 Katherine Page DO [address] [facility] [address] [address] PCP - General Family Medicine 10/16/22 06/29/23 Hernan Ibarra MD [address] [place] [address] PCP - General Family Medicine 06/30/23 Dung Hudson MD [address] [address] Pulmonary Disease 10/16/22 Thuan Og MD [address] [place] [address] Referring Physician Obstetrics and Gynecology 10/16/22 documented as of this encounter
--- OUTSIDE RECORDS SUMMARY | 2024-04-11 21:56 | XMS_ITS | Encounter Summary ---
Author Organization [facility] Facility Care Team Providers Care Cardiac Specialist Name Role Phone Son Jeronimo MD Primary Care Provider [phone] Ben Amaral Primary Care Provider [phone] Katherine Page DO Primary Care Provider [phone] Dung Hudson MD Unavailable Thuan Og MD Unavailable [phone] Hernan Ibarra MD Primary Care Provider [phone] Encounter Details Date Type Department Care Team (Latest Contact Info) Description 07/03/2015 Orders Only [facility] CLINCONV ProviderSandra MD [address] [place] [address] Social History Tobacco Use Types Packs/Day Years Used Date Smoking Tobacco: Never Assessed Comments Unknown Sex and Gender Information Value Date Recorded Sex Assigned at Not on file Legal Sex Female 11:58 PM LOGGING EQUIPMENT MECHANIC Gender Identity Female 07/27/2018 12:12 PM CDT Sexual Orientation Not on file documented as of this encounter Plan of Treatment Upcoming Encounters Date Type Department Care Team (Late st Contact Info) Description 04/12/2024 12:00 PM LOGGING EQUIPMENT MECHANIC Hospital Encounter [address] [place] [address] Vivek Mcintosh MD [address] [facility] [address] [place] [address] 04/12/2024 12:00 PM LOGGING EQUIPMENT MECHANIC - 04/12/2024 12:30 PM LOGGING EQUIPMENT MECHANIC Surgery [facility] 1 [place] [address] Vivek Mcintosh MD [address] [facility] [address] [place] [address] COLONOSCOPY Scheduled Procedures Name Priority Associated Diagnoses Date/Ti me COLONOSCOPY LUQ pain Encounter for screening colonoscopy Gastroesophageal reflux disease, unspecified whether esophagitis present History of Larsen's esophagus Dyspepsia History of Helicobacter pylori infection 04/12/2024 12:00 PM LOGGING EQUIPMENT MECHANIC ESOPHAGOGASTRODUODENOSCOPY LUQ pain Encounter for screening colonoscopy Gastroesophageal reflux disease, unspecified whether esophagitis present History of Larsen's esophagus Dyspepsia History of Helicobacter pylori infection 04/12/2024 12:00 PM LOGGING EQUIPMENT MECHANIC documented as of this encounter Procedures Procedure Name Priority Date/Time Associated Diagnosis Comments SCAN - LABS 07/03/2015 12:00 AM CDT documented in this encounter Results * SCAN - LABS (07/03/2015 12:00 AM CDT) Narrative 07/03/2015 12:00 AM CDT Ordered by an unspecified provider. Historical Provider Final Res ult documented in this encounter Visit Diagnoses Not on filedocumented in this encounter Care Teams Cardiac Specialist Relationship Specialty Start Date End Date Son Jeronimo MD PCP - General Family Medicine 07/27/18 11/26/21 Ben Amaral PA PCP - General Family Medicine 11/27/21 10/15/22 Katherine Page DO [address] [facility] [address] [address] PCP - General Family Medicine 10/16/22 06/29/23 Hernan Ibarra MD [address] [place] [address] PCP - General Family Medicine 06/30/23 Dung Hudson MD [address] [address] Pulmonary Disease 10/16/22 Thuan Og MD [address] [place] [address] Referring Physician Obstetrics and Gynecology 10/16/22 documented as of this encounter
--- OUTSIDE RECORDS SUMMARY | 2024-04-11 21:56 | XMS_ITS | Encounter Summary ---
Author Organization [facility] Facility Care Team Providers Care Emissions Inspector Name Role Phone Son Jeronimo MD Primary Care Provider [phone] Ben Amaral Primary Care Provider [phone] Katherine Page DO Primary Care Provider [phone] Dung Hudson MD Unavailable Thuan Og MD Unavailable [phone] Hernan Ibarra MD Primary Care Provider Encounter Details Date Type Department Care Team (Latest Contact Info) Description 10/01/2016 Orders Only [facility] CLINCONV ProviderSandra MD [address] [place] [address] Social History Tobacco Use Types Packs/Day Years Used Date Smoking Tobacco: Never Assessed Comments Unknown Sex and Gender Information Value Date Recorded Sex Assigned at Not on file Legal Sex Female 11:58 PM WATCH ASSEMBLY INSPECTOR Gender Identity Female 07/27/2018 12:12 PM CDT Sexual Orientation Not on file documented as of this encounter Plan of Treatment Upcoming Encounters Date Type Department Care Team (Late st Contact Info) Description 04/12/2024 12:00 PM WATCH ASSEMBLY INSPECTOR Hospital Encounter [address] [place] [address] Vivek Mcintosh MD [address] [facility] [address] [place] [address] 04/12/2024 12:00 PM WATCH ASSEMBLY INSPECTOR - 04/12/2024 12:30 PM WATCH ASSEMBLY INSPECTOR Surgery [facility] 1 [place] [address] Vivek Mcintosh MD [address] [facility] [address] [place] [address] COLONOSCOPY Scheduled Procedures Name Priority Associated Diagnoses Date/Ti me COLONOSCOPY LUQ pain Encounter for screening colonoscopy Gastroesophageal reflux disease, unspecified whether esophagitis present History of Larsen's esophagus Dyspepsia History of Helicobacter pylori infection 04/12/2024 12:00 PM WATCH ASSEMBLY INSPECTOR ESOPHAGOGASTRODUODENOSCOPY LUQ pain Encounter for screening colonoscopy Gastroesophageal reflux disease, unspecified whether esophagitis present History of Larsen's esophagus Dyspepsia History of Helicobacter pylori infection 04/12/2024 12:00 PM WATCH ASSEMBLY INSPECTOR documented as of this encounter Procedures Procedure Name Priority Date/Time Associated Diagnosis Comments SCAN - LABS 10/06/2016 12:00 AM CDT documented in this encounter Results * SCAN - LABS (10/06/2016 12:00 AM CDT) Narrative 10/06/2016 12:00 AM CDT Ordered by an unspecified provider. Historical Provider Final Res ult documented in this encounter Visit Diagnoses Not on filedocumented in this encounter Care Teams Emissions Inspector Relationship Specialty Start Date End Date Son Jeronimo MD PCP - General Family Medicine 07/27/18 11/26/21 Ben Amaral PA PCP - General Family Medicine 11/27/21 10/15/22 Katherine Page DO [address] [facility] [address] [address] PCP - General Family Medicine 10/16/22 06/29/23 Hernan Ibarra MD [address] [place] [address] PCP - General Family Medicine 06/30/23 Dung Hudson MD [address] [address] Pulmonary Disease 10/16/22 Thuan Og MD [address] [place] [address] Referring Physician Obstetrics and Gynecology 10/16/22 documented as of this encounter
--- OUTSIDE RECORDS SUMMARY | 2024-04-11 21:56 | XMS_ITS | Encounter Summary ---
Author Organization [facility] Facility Care Team Providers Care Ballpoint Pens Assembler Name Role Phone Son Jeronimo MD Primary Care Provider [phone] Ben Amaral Primary Care Provider [phone] Katherine Page DO Primary Care Provider [phone] Dung Hudson MD Unavailable Thuan Og MD Unavailable [phone] Hernan Ibarra MD Primary Care Provider [phone] Encounter Details Date Type Department Care Team (Latest Contact Info) Description 08/27/2016 Orders Only [facility] CLINCONV ProviderSandra MD [address] [place] [address] Social History Tobacco Use Types Packs/Day Years Used Date Smoking Tobacco: Never Assessed Comments Unknown Sex and Gender Information Value Date Recorded Sex Assigned at Not on file Legal Sex Female 11:58 PM CAR FRAMER Gender Identity Female 07/27/2018 12:12 PM CDT Sexual Orientation Not on file documented as of this encounter Plan of Treatment Upcoming Encounters Date Type Department Care Team (Late st Contact Info) Description 04/12/2024 12:00 PM CAR FRAMER Hospital Encounter [address] [place] [address] Vivek Mcintosh MD [address] [facility] [address] [place] [address] 04/12/2024 12:00 PM CAR FRAMER - 04/12/2024 12:30 PM CAR FRAMER Surgery [address] [address] Vivek Mcintosh MD [address] [facility] [address] [place] [address] COLONOSCOPY Scheduled Procedures Name Priority Associated Diagnoses Date/Ti me COLONOSCOPY LUQ pain Encounter for screening colonoscopy Gastroesophageal reflux disease, unspecified whether esophagitis present History of Larsen's esophagus Dyspepsia History of Helicobacter pylori infection 04/12/2024 12:00 PM CAR FRAMER ESOPHAGOGASTRODUODENOSCOPY LUQ pain Encounter for screening colonoscopy Gastroesophageal reflux disease, unspecified whether esophagitis present History of Larsen's esophagus Dyspepsia History of Helicobacter pylori infection 04/12/2024 12:00 PM CAR FRAMER documented as of this encounter Procedures Procedure [...] on filedocumented in this encounter Care Teams Ballpoint Pens Assembler Relationship Specialty Start Date End Date Son Jeronimo MD PCP - General Family Medicine 07/27/18 11/26/21 Ben Amaral PA PCP - General Family Medicine 11/27/21 10/15/22 Katherine Page DO [address] [facility] [address] [place] [address] PCP - General Family Medicine 10/16/22 06/29/23 Hernan Ibarra MD [address] [place] [address] PCP - General Family Medicine 06/30/23 Dung Hudson MD [address] [address] Pulmonary Disease 10/16/22 Thuan Og MD [address] [place] [address] Referring Physician Obstetrics and Gynecology 10/16/22 documented as of this encounter
--- OUTSIDE RECORDS SUMMARY | 2024-04-11 21:56 | XMS_ITS | Encounter Summary ---
Author Organization [facility] Facility Care Team Providers Care Vp Of Digital Marketing Name Role Phone Son Jeronimo MD Primary Care Provider [phone] Ben Amaral Primary Care Provider [phone] Katherine Page DO Primary Care Provider [phone] Dung Hudson MD Unavailable Thuan Og MD Unavailable [phone] Hernan Ibarra MD Primary Care Provider [phone] Encounter Details Date Type Department Care Team (Latest Contact Info) Description 06/27/2015 Orders Only [facility] CLINCONV ProviderSandra MD [address] [place] [address] Social History Tobacco Use Types Packs/Day Years Used Date Smoking Tobacco: Never Assessed Comments Unknown Sex and Gender Information Value Date Recorded Sex Assigned at Not on file Legal Sex Female 11:58 PM ASSEMBLER [employer] Gender Identity Female 07/27/2018 12:12 PM CDT Sexual Orientation Not on file documented as of this encounter Plan of Treatment Upcoming Encounters Date Type Department Care Team (Late st Contact Info) Description 04/12/2024 12:00 PM ASSEMBLER [employer] Hospital Encounter [address] [place] [address] Vivek Mcintosh MD [address] [facility] [address] [place] [address] 04/12/2024 12:00 PM ASSEMBLER [employer] - 04/12/2024 12:30 PM ASSEMBLER [employer] Surgery [facility] [address] [place] [address] Vivek Mcintosh MD [address] [facility] [address] [place] [address] COLONOSCOPY Scheduled Procedures Name Priority Associated Diagnoses Date/Ti me COLONOSCOPY LUQ pain Encounter for screening colonoscopy Gastroesophageal reflux disease, unspecified whether esophagitis present History of Larsen's esophagus Dyspepsia History of Helicobacter pylori infection 04/12/2024 12:00 PM ASSEMBLER [employer] ESOPHAGOGASTRODUODENOSCOPY LUQ pain Encounter for screening colonoscopy Gastroesophageal reflux disease, unspecified whether esophagitis present History of Larsen's esophagus Dyspepsia History of Helicobacter pylori infection 04/12/2024 12:00 PM ASSEMBLER [employer] documented as of this encounter Procedures Procedure Name Priority Date/Time Associated Diagnosis Comments SCAN - LABS 06/27/2015 12:00 AM CDT documented in this encounter Results * SCAN - LABS (06/27/2015 12:00 AM CDT) Narrative 06/27/2015 12:00 AM CDT Ordered by an unspecified provider. Historical Provider Final Res ult documented in this encounter Visit Diagnoses Not on filedocumented in this encounter Care Teams Vp Of Digital Marketing Relationship Specialty Start Date End Date Son Jeronimo MD PCP - General Family Medicine 07/27/18 11/26/21 Ben Amaral PA PCP - General Family Medicine 11/27/21 10/15/22 Katherine Page DO [address] [facility] [address] [address] PCP - General Family Medicine 10/16/22 06/29/23 Hernan Ibarra MD [address] [place] [address] PCP - General Family Medicine 06/30/23 Dung Hudson MD [address] [address] Pulmonary Disease 10/16/22 Thuan Og MD [address] [place] [address] Referring Physician Obstetrics and Gynecology 10/16/22 documented as of this encounter
--- OUTSIDE RECORDS SUMMARY | 2024-04-11 21:56 | XMS_ITS | Encounter Summary ---
Author Organization [facility] Facility Care Team Providers Care Relationship Advisor Name Role Phone Son Jeronimo MD Primary Care Provider [phone] Ben Amaral Primary Care Provider [phone] Katherine Page DO Primary Care Provider [phone] Dung Hudson MD Unavailable Thuan Og MD Unavailable [phone] Hernan Ibarra MD Primary Care Provider Encounter Details Date Type Department Care Team (Latest Contact Info) Description 06/18/2017 Orders Only [facility] CLINCONV ProviderSandra MD [address] [place] [address] Social History Tobacco Use Types Packs/Day Years Used Date Smoking Tobacco: Never Assessed Comments Unknown Sex and Gender Information Value Date Recorded Sex Assigned at Not on file Legal Sex Female 11:58 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 Gender Identity Female 07/27/2018 12:12 PM CDT Sexual Orientation Not on file documented as of this encounter Plan of Treatment Upcoming Encounters Date Type Department Care Team (Late st Contact Info) Description 04/12/2024 12:00 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 Hospital Encounter [address] [place] [address] Vivek Mcintosh MD [address] [facility] [address] [place] [address] 04/12/2024 12:00 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 - 04/12/2024 12:30 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 Surgery [facility] [address] [place] [address] Vivek Mcintosh MD [address] [facility] [address] [place] [address] COLONOSCOPY Scheduled Procedures Name Priority Associated Diagnoses Date/Ti me COLONOSCOPY LUQ pain Encounter for screening colonoscopy Gastroesophageal reflux disease, unspecified whether esophagitis present History of Larsen's esophagus Dyspepsia History of Helicobacter pylori infection 04/12/2024 12:00 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 ESOPHAGOGASTRODUODENOSCOPY LUQ pain Encounter for screening colonoscopy Gastroesophageal reflux disease, unspecified whether esophagitis present History of Larsen's esophagus Dyspepsia History of Helicobacter pylori infection 04/12/2024 12:00 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 documented as of this encounter Procedures Procedure [...] on filedocumented in this encounter Care Teams Relationship Advisor Relationship Specialty Start Date End Date Son Jeronimo MD PCP - General Family Medicine 07/27/18 11/26/21 Ben Amaral PA PCP - General Family Medicine 11/27/21 10/15/22 Katherine Page DO [address] [facility] [address] [address] PCP - General Family Medicine 10/16/22 06/29/23 Hernan Ibarra MD [address] [place] [address] PCP - General Family Medicine 06/30/23 [place] [address] [place] [address] Pulmonary Disease 10/16/22 Thuan Og MD [address] [place] [address] Referring Physician Obstetrics and Gynecology 10/16/22 documented as of this encounter
[2024-04-11 22:22] VITALS: O2SAT 97
[2024-04-11 22:24] VITALS: BP 135/93; PULSE 84; RESP 20; O2SAT 97
[2024-04-11] MEDS: SODIUM CHLORIDE 0.9% IV 1,000 ML 999 ML IV CONT (22:47)
[2024-04-11] MEDS: MORPHINE SULFATE (*CRX) 4 MG/ML INJ IV PUSH (22:49)
[2024-04-11 23:41] LABS: INR 0.9; Partial Thromboplastin Time 22.6 Seconds (22.3-36.8); Prothrombin Time 12.5 Seconds (11.1-14.7)
[2024-04-12] MEDS: ONDANSETRON INJ 4 MG/2 ML VIAL IV PUSH (01:00)
[2024-04-12] MEDS: PROMETHAZINE/CODEINE (*CRX) 5 ML SYRUP PO (01:22)
[2024-04-12 01:44] VITALS: BP 133/90; PULSE 80; RESP 19; O2SAT 98
== END 2024-04-12 01:46 | disposition home or self-care (01) ==
PROVIDERS: Physician Assistant; Emergency Provider Registered Nurse; PCP Family Medicine
DX: J10.1 Influenza due to other identified influenza virus with other respiratory manifestations (principal); J45.909 Unspecified asthma, uncomplicated; I34.1 Nonrheumatic mitral (valve) prolapse; E78.5 Hyperlipidemia, unspecified; E03.9 Hypothyroidism, unspecified; K22.70 Barrett's esophagus without dysplasia; K58.9 Irritable bowel syndrome, unspecified; M35.9 Systemic involvement of connective tissue, unspecified; Z90.49 Acquired absence of other specified parts of digestive tract; K44.9 Diaphragmatic hernia without obstruction or gangrene; R94.31 Abnormal electrocardiogram [ECG] [EKG]
CPT/HCPCS: 36415; 71046; 80053; 85025; 85610; 85730; 93005; 94640; 96361; 96374; 96375; 99284; A9270; J2270; J2405; J2919; J7030